=== PATIENT | male | born 1955 | race Two or more races ===

== ENCOUNTER 2017-07-06 19:32 | Inpatient (IN) | payer OTHER ==
[~2017-07-06] VITALS: Ht 172.7 cm; Wt 78.9 kg
--- NOTE | 2017-07-06 19:40 | NUR ---
PT TO BED 4 BIB RA, C/O SOB X 2 DAYS. PT PLACED IN GOWN AND ON VS/FOOT DRILL OPERATOR. RESP SHALLOW, TACHYPNEA, WITH A NONPRODUCTIVE COUGH. VSS/NAD NOTED. PT SAT 97% ON RA. SKIN WARM AND DRY. DENIES N/V/D.
--- NOTE | 2017-07-06 19:45 | NUR ---
18G IV TO LAC USING ASEPTIC TECH, BLOOD CULT X 2 AND BLOOD SAMPLE HANDED OVER TO LAB AT BEDSIDE.
[2017-07-06 19:50] LABS: BASOPHILS # (AUTO) 0.6 /CMM (0.0-0.2); BASOPHILS % (AUTO) 4.4 % (0.0-2.0); EOSINOPHILS % (AUTO) 0.3 % (0.0-6.0); HEMATOCRIT 50 % (39-51); HEMOGLOBIN 16.4 g/dL (13.5-17.5); LYMPHOCYTES # (AUTO) 2.9 /CMM (0.8-4.8); LYMPHOCYTES % (AUTO) 20.2 % (20.0-44.0); MEAN CORPUSCULAR HEMOGLOBIN 28 PG (26.0-33.0); MEAN CORPUSCULAR HGB CONC 33 g/dl (31.0-36.0); MEAN CORPUSCULAR VOLUME 85 fL (80-96); MONOCYTES # (AUTO) 0.9 /CMM (0.1-1.30); MONOCYTES % (AUTO) 6.3 % (2.0-12.0); NEUTROPHILS % (AUTO) 68.8 % (43.0-81.0); PLATELET COUNT (AUTO) 364 /CMM (150-450); RDW COEFFICIENT OF VARIATION 14.3 (11.5-15.0); RED BLOOD CELL COUNT(AUTO) 5.91 MIL/uL (4.5-6.0); WHITE BLOOD COUNT (AUTO) 14.4 K/uL (4.3-11.0)
[2017-07-06 20:00] LABS: CALCIUM, SERUM 9.4 mg/dL (8.5-10.1); CREATININE 1.3 mg/dL (0.6-1.3); POTASSIUM 3.8 mmol/L (3.5-5.1)
[2017-07-06] MEDS ORDERED: CEFTRIAXONE 1GM BAG (ER ONLY) 50 ML IV ONE ×2 (20:00→20:03)
[2017-07-06] MEDS ORDERED: IV NS 0.9% 1,000 ML BAG IV ONE (20:00)
[2017-07-06] MEDS ORDERED: LEVOFLOXACIN (500MG) 500 MG TABLET PO ONE (20:00)
[2017-07-06] MEDS ORDERED: LEVOFLOXACIN (500MG) 500 MG TABLET ONE (20:02)
--- NOTE | 2017-07-06 20:10 | NUR ---
MEDICATED ORDEREED PER .
--- NOTE | 2017-07-06 20:11 | NUR ---
LEVAQUIN TABLET 500MG ORDERED BY AND PULLED FROM [facility] BY RN. CHANGED ORDER TO IV LEVAQUIN. TABLET WASTED BY RN.
[2017-07-06] MEDS ORDERED: LEVOFLOXACIN 500 MG /D5W 100ML 100 ML IV ONE (20:52)
[2017-07-06] MEDS ORDERED: LEVOFLOXACIN 500 MG /D5W 100ML 500 MG/100 ML PIGGYBACK IV ONE (21:00)
--- NOTE | 2017-07-06 21:00 | NUR ---
MEDICATED PER MD ORDERS.
--- NOTE | 2017-07-06 21:12 | NUR ---
PT BEING ADMIT TO [facility] BED 110.
--- NOTE | 2017-07-06 21:23 | NUR ---
REPORT GIVEN TO JERSEY THURMAN.
--- NOTE | 2017-07-06 21:44 | NUR ---
PT TRANS TO BED 110 VIA STRETCHER, ACLS PROTOCOL WITH RNIglesia ROWLAND.
[2017-07-06] MEDS ORDERED: HYDROCODONE/APAP 5/325MG 1 EACH TABLET PO PRN (22:00)
[2017-07-06] MEDS: LEVOFLOXACIN 500 MG /D5W 100ML 500 MG in PREMIX 1 EA IV SCH (22:00)
[2017-07-06] MEDS: CEFTRIAXONE 1 G in IV D5W 50 ML IV SCH (22:00)
[2017-07-06] MEDS ORDERED: MAG HYDROX/AL HYDROX/SIMETH 30 ML UDC PO PRN (22:00)
[2017-07-06] MEDS ORDERED: ACETAMINOPHEN 325 MG TABLET PO PRN (22:00)
[2017-07-06] MEDS ORDERED: Z GUARD REMEDY 2 OZ OINT TP PRN (22:00)
[2017-07-06] MEDS ORDERED: ZOLPIDEM TARTRATE 5 MG TABLET PO PRN (22:00)
[2017-07-06] MEDS ORDERED: ONDANSETRON HCL/PF 4 MG/2 ML VIAL IVP PRN (22:00)
[2017-07-06] MEDS ORDERED: MAGNESIUM HYDROXIDE 30 ML UDC PO PRN (22:00)
[2017-07-06 22:30] VITALS: BP 125/94
--- NOTE | 2017-07-06 22:30 | NUR ---
RN NOTES, ADMITTED PATIENT FROM ER VIA [facility] AT 2150, ACCOMPANIED BY 2 ER STAFF, UNDER DR. REZA, PATIENT A/O X4 ABLE TO COMMUNICATE NEEDS, DIAGNOSED WITH SEPSIS, PNA, WITH H/O MS, PACEMAKER, BRAIN STIMULATOR IN PLACED, H/O LEFT EYE SX, NKA, WITH SOB NOTED, O2 ADMINISTERED VIA NC @ 2LPM, SATING @95% AT THIS TIME, TELEMONITOR PLACED, REVEALED ST HR 109. IV SITE ON LEFT AC GAUGE 18, INTACT AND PATENT, IVF NS INFUSING CONTINUE FROM ER, BODY ASSESSMENT DONE, EDEMA NOTED IN BOTH LOWER EXTREMITIES WITH POSITIVE PITTING EDEMA, SKIN INTACT, INSTRUCTED TO CALL LIGHT, CALL LIGHT PLACED W/I REACH, BED BATH GIVEN, ENCOURAGE TO USE URINAL, OFFLOADED EXTREMITIES WITH PILLOWS, KEPT DRY AND CLEAN, WILL CONTINUE TO MONITOR CLOSELY.
[2017-07-06 23:50] LABS: ALBUMIN 2.9 g/dL (3.4-5.0); BILIRUBIN,DIRECT 0.3 mg/dL (0.0-0.2); BILIRUBIN,TOTAL 1.1 mg/dL (0.2-1.0); TOTAL PROTEIN, SERUM 6.4 g/dL (6.4-8.2)
[2017-07-07] VITALS: BP 122/80
--- NOTE | 2017-07-07 03:00 | NUR ---
RN NOTES, REPORTED TO DR THAT NOTED PATIENT WITH NO URINARY OUTPUT, WITH ORDER TO INSERT VELIZ CATHETER.
[2017-07-07 04:45] VITALS: BP 144/100
--- NOTE | 2017-07-07 06:05 | NUR ---
RN CLOSING NOTES, PATIENT IN BED, AWAKE UNABLE TO SLEEP, ENCOURAGE TO GIVE SLEEPING PILL, BUT PATIENT REFUSED. NO ACUTE DISTRESS NOTED AT THIS TIME,, PATIENT STILL NOTED WITH SOB WHILE TALKING, WITH SATURATION LEVEL @99% ON IVF NS @ 125ML/HR, IV SITE INTACT AND PATENT WITH NOO S/S OF INFILTRATION OR ABNORMALITY NOTED AT THIS TIME. VELIZ CATHETER INSERTED ORDERED AND DRAINING YELLOW URINE, PATENCY INTACT, SPUTUM AND URINE COLLECTED, WILL ENDORSE CONTINUE OF CARE, AND MONITOR FOR URINE OUTPUT; AND F/U WITH MOM WITH HOME MEDICATIONS.
[2017-07-07 06:52] LABS: BASOPHILS % (AUTO) 0.5 % (0.0-2.0); EOSINOPHILS # (AUTO) 0.2 /CMM (0.0-0.7); EOSINOPHILS % (AUTO) 2.7 % (0.0-6.0); HEMATOCRIT 45 % (39-51); LYMPHOCYTES % (AUTO) 41.8 % (20.0-44.0); MEAN CORPUSCULAR HEMOGLOBIN 29 PG (26.0-33.0); MEAN CORPUSCULAR HGB CONC 34 g/dl (31.0-36.0); MEAN CORPUSCULAR VOLUME 87 fL (80-96); MONOCYTES # (AUTO) 0.7 /CMM (0.1-1.30); MONOCYTES % (AUTO) 9.4 % (2.0-12.0); NEUTROPHILS # (AUTO) 3.2 /CMM (1.8-8.9); NEUTROPHILS % (AUTO) 45.6 % (43.0-81.0); PLATELET COUNT (AUTO) 285 /CMM (150-450); RDW COEFFICIENT OF VARIATION 13.3 (11.5-15.0); WHITE BLOOD COUNT (AUTO) 7.1 K/uL (4.3-11.0)
--- NOTE | 2017-07-07 07:05 | NUR ---
RN NOTES, RECEIVED PT ON BED, RESPIRATION EVEN AND UNLABORED, ON 2L O2 N/C , GUANACO ANY DISTRESS AT THIS TIME ON TELE ST HR 107, IVF NS @ 125ML/HR RUNNING VIA L AC G 18 IV , SITE CDI, VELIZ CATHETER DRAINING TO GRAVITY WITH YELLOW URINE. SR UP x3 , CALL LIGHT WITHIN EASY REACH, BED LOCKED AND IN LOWEST POSITION , WILL CONTINUE TO MONITOR PT CLOSELY.
[2017-07-07 07:20] LABS: CALCIUM, SERUM 8.2 mg/dL (8.5-10.1); CREATININE 1.1 mg/dL (0.6-1.3); MAGNESIUM 1.8 mg/dL (1.8-2.4); PHOSPHORUS 3.2 mg/dL (2.5-4.9); POTASSIUM 4.5 mmol/L (3.5-5.1)
[2017-07-07 07:47] LABS: APPEARANCE,URINE TURBID (CLEAR); BILIRUBIN,URINE 1+ (NEGATIVE); BLOOD, URINE TRACE-INTA Ery/uL (NEGATIVE); COLOR,URINE YELLOW (YELLOW); KETONES,URINE 1+ (NEGATIVE); LEUKOCYTE ESTERASE ,URINE NEGATIVE (NEGATIVE); NITRITE, URINE NEGATIVE (NEGATIVE); PH,URINE 5.5 (5.0-8.0); PROTEIN,URINE 2+ mg/dl (NEGATIVE); UGLUCOSE NEGATIVE (NEGATIVE)
[2017-07-07 08:00] VITALS: BP_SYST 128; BP_DIAS 103; BP_DIAS 107
[2017-07-07 08:34] LABS: BACTERIA,URINE None seen /HPF (None Seen); RBC,URINE 0-2 /HPF (0-2); SQUAMOUS EPITHELIAL CELL,UR None Seen /HPF (None Seen); URINE AMORPHOUS PHOSPHATES Many /HPF (None Seen); WBC,URINE NONE SEEN /HPF (0-3)
[2017-07-07] MEDS ORDERED: IV NS 0.9% 1,000 ML BAG IV SCH (09:00)
[2017-07-07] MEDS ORDERED: IV NS 0.9% 1,000 ML BAG IV PRN (09:00)
--- NOTE | 2017-07-07 09:00 | NUR ---
RN NOTES PT SITTING ON THE EDGE OF THE BED, VOMITED x1, MODERATED AMOUNT OF JUST GASTRIC JUICE , NO SOILED PARTICLES NOTED. ZOFRAN IV GIVE PER MD ORDER .
[2017-07-07] MEDS ORDERED: ATOR20TA PO (09:30)
[2017-07-07 12:00] VITALS: BP 133/91
[2017-07-07] MEDS: IPRATROPIUM NEB FS 0.5 MG/2.5 ML AMPUL.NEB NEB SCH ×3 (13:19→20:02)
[2017-07-07] MEDS: ALBUTEROL FS 2.5 MG/0.5 ML VIAL.NEB NEB SCH ×3 (13:19→20:02)
[2017-07-07] MEDS: methylPREDNISolone SOD SUCC 40 MG/ML VIAL IV SCH ×2 (13:24→16:43)
[2017-07-07] MEDS: ENOXAPARIN SODIUM 40 MG/0.4 ML DISP.SYRIN SQ SCH (13:24)
--- NOTE | 2017-07-07 14:00 | NUR ---
RN NOTES IRENE MARINE EQUIPMENT TEST ENGINEER NOTIFIED REGARDING EMESIS x1 IN AM, CONTINUE TO MONITOR.
--- NOTE | 2017-07-07 14:00 | NUR ---
RN NOTES PT OUT OF BED TO BSC WITH PHYSICAL THERAPIST , GUERRERO x1
[2017-07-07] MEDS: IV NS 0.9% 1,000 ML IV PRN ×2 (14:44→21:59)
[2017-07-07 16:00] VITALS: BP 138/92
--- NOTE | 2017-07-07 18:49 | NUR ---
RN NOTES SUPPORTIVE FAMILY AT THE BEDSIDE, VSS STABLE , O2 SAT 99% , SR UP x3, CALL LIGHT WITHIN EASY REACH, WILL ENDORSE TO PRODUCT DEVELOPMENT COORDINATOR NURSE FOR ALFREDO .
--- NOTE | 2017-07-07 19:00 | NUR ---
RN NOTES, PATIENT AWAKE , ALERT AND ORIENTED, NO ACUTE DISTRESS NOTED AT THIS TIME, CLEAR LUNG SOUNDS UPON AUSCULTATION, STILL NOTED WITH SOB WHEN TALKING, FAMILY AT BEDSIDE. PITTING EDEMA IN BOTH LE NOTED, AFEBRILE AT THIS TIME, DISCUSS PLAN OF CARE WITH PATIENT AND FAMILY, CONTINUE IN IVF NS 0.9% AT 125ML/HR RUNNING WELL AND PT TOLERATED WELL, SITE INTACT AND PATENT NO S/S OF ANY ABNORMALITY OR INFILTRATION SITE, VELIZ CATHETER IN PLACE NOTED WITH MINIMAL AMOUNT OF YELLOW URINE, PATENCY INTACT, KEPT CLEAN AND DRY AT ALL TIMES, BED LOCKED AND IN LOWEST POSTILION, CALL LIGHT W/I REACH, WILL CONTINUE TO MONITOR CLOSELY.
[2017-07-07 20:00] VITALS: BP 143/92
[2017-07-07] MEDS: LEVOFLOXACIN 500 MG /D5W 100ML 500 MG in PREMIX 1 EA IV SCH (21:07)
[2017-07-07] MEDS: ATORVASTATIN 10 MG TABLET PO SCH (21:07)
[2017-07-07] MEDS: CEFTRIAXONE 1 G in IV D5W 50 ML IV SCH (22:51)
[2017-07-08] VITALS (7 sets, daily range): BP systolic 118–137; BP diastolic 72–96
--- NOTE | 2017-07-08 06:39 | NUR ---
RN CLOSING NOTES, PATIENT SLEEPING IN BED, BREATHING EVEN AND UNLABORED, NO SOB NOTED AT THIS TIME, ON IVF NS 0.9% RUNNING WELL AND PATIENT TOLERATED WELL, PATENT AND INTACT, NO S/S OF ANY INFILTRATION NOTED, VELIZ CATHETER IN PLACED , PATENCY INTACT, ALL NEEDS PROVIDED AND ATTENDED, CALL LIG HT W/I REACH AND BED LOCKED AN DIN LOWEST POSITION, WILL ENDORSED TO NEXT SHIFT PER PATIENT'S MOM OK TO GIVE INFORMATION ABOUT PATIENT'S CONDITION AND TO INFORM MD TO CALL BROTHER OR DAUGHTER IN LAW ABOUT THE PATIENT'S SITUATION AND PLAN OF CARE. KEPT PATIENT CLEAN AND DRY AT ALL TIMES.
[2017-07-08 06:58] LABS: BASOPHILS % (AUTO) 0.1 % (0.0-2.0); HEMATOCRIT 44 % (39-51); HEMOGLOBIN 14.4 g/dL (13.5-17.5); LYMPHOCYTES % (AUTO) 8.9 % (20.0-44.0); MEAN CORPUSCULAR HEMOGLOBIN 28 PG (26.0-33.0); MEAN CORPUSCULAR HGB CONC 33 g/dl (31.0-36.0); MEAN CORPUSCULAR VOLUME 86 fL (80-96); MONOCYTES # (AUTO) 0.8 /CMM (0.1-1.30); MONOCYTES % (AUTO) 7.3 % (2.0-12.0); NEUTROPHILS # (AUTO) 9.4 /CMM (1.8-8.9); NEUTROPHILS % (AUTO) 83.7 % (43.0-81.0); PLATELET COUNT (AUTO) 266 /CMM (150-450); RED BLOOD CELL COUNT(AUTO) 5.13 MIL/uL (4.5-6.0); WHITE BLOOD COUNT (AUTO) 11.3 K/uL (4.3-11.0)
[2017-07-08 07:06] LABS: CREATININE 1.1 mg/dL (0.6-1.3); MAGNESIUM 1.8 mg/dL (1.8-2.4); PHOSPHORUS 2.6 mg/dL (2.5-4.9); POTASSIUM 4.6 mmol/L (3.5-5.1)
--- NOTE | 2017-07-08 07:10 | NUR ---
RN NOTES RECEIVED PT ON BED, A/Ox3, RESPIRATION EVEN AND UNLABORED , ON O2 2L N/C , ON TELE ST HR IN LOW 100'S , PT GUANACO ANY DISTRESS ,IVF NS 0.9% AT 125ML/HR RUNNING VIA L AC IV SITE, VELIZ CATHETER DRAINING TO GRAVITY WITH YELLOW URINE, PATENCY INTACT, KEPT CLEAN AND DRY AT ALL TIMES, BED LOCKED AND IN LOWEST POSTILION, CALL LIGHT WITHIN REACH, WILL CONTINUE TO MONITOR CLOSELY.
[2017-07-08] MEDS: IPRATROPIUM NEB FS 0.5 MG/2.5 ML AMPUL.NEB NEB SCH ×4 (07:35→20:07)
[2017-07-08] MEDS: ALBUTEROL FS 2.5 MG/0.5 ML VIAL.NEB NEB SCH ×4 (07:35→20:07)
[2017-07-08] MEDS: methylPREDNISolone SOD SUCC 40 MG/ML VIAL IV SCH ×2 (08:40→12:38)
[2017-07-08] MEDS: IV NS 0.9% 1,000 ML IV PRN ×2 (08:40→17:25)
--- NOTE | 2017-07-08 12:00 | NUR ---
RN NOTES SUPPORTIVE FAMILY AT THE BEDSIDE, NS AT 75CC/HR RUNNING VIA L AC IV SITE, VELIZ DRAINING TO GRAVITY , SR UP x3, CALL LIGHT WITHIN EASY REACH, WILL ENDORSE TO CERTIFIED JUVENILE PROBATION OFFICER NURSE FOR ALFREDO . Addendum: 07/08/17 at 1841 by JODIE NUÑEZ RN TIME CORRECTION :ABOVE TIME IS 1840
[2017-07-08] MEDS: ENOXAPARIN SODIUM 40 MG/0.4 ML DISP.SYRIN SQ SCH (12:38)
--- NOTE | 2017-07-08 19:50 | NUR ---
VENTILATION WORKER INITIAL NOTE PT RECEIVED IN NO ACUTE DISTRESS. PT IS A/O X3. ON TELE WITH SR 87. LAC 18G RUNNING FLUIDS CLEAN DRY AND INTACT. F/C IS CLEAN DRY AND DRAINING DARK YELLOW URINE. COMFORT AND SAFETY MEASURES TO BE ENSURED DURING THE SHIFT. WILL CONTINUE TO MONITOR FOR ANY CHANGES.
[2017-07-08] MEDS: LEVOFLOXACIN 500 MG /D5W 100ML 500 MG in PREMIX 1 EA IV SCH (22:15)
[2017-07-08] MEDS: CEFTRIAXONE 1 G in IV D5W 50 ML IV SCH (22:15)
[2017-07-08] MEDS: ATORVASTATIN 10 MG TABLET PO SCH (22:15)
[2017-07-09] VITALS: BP 129/89
[2017-07-09 04:00] VITALS: BP 131/83
[2017-07-09 06:59] LABS: HEMATOCRIT 45 % (39-51); HEMOGLOBIN 14.7 g/dL (13.5-17.5); LYMPHOCYTES # (AUTO) 0.7 /CMM (0.8-4.8); LYMPHOCYTES % (AUTO) 4.3 % (20.0-44.0); MEAN CORPUSCULAR HEMOGLOBIN 28 PG (26.0-33.0); MEAN CORPUSCULAR HGB CONC 33 g/dl (31.0-36.0); MEAN CORPUSCULAR VOLUME 86 fL (80-96); MONOCYTES # (AUTO) 0.8 /CMM (0.1-1.30); MONOCYTES % (AUTO) 4.8 % (2.0-12.0); NEUTROPHILS # (AUTO) 15.3 /CMM (1.8-8.9); NEUTROPHILS % (AUTO) 90.9 % (43.0-81.0); PLATELET COUNT (AUTO) 237 /CMM (150-450); RDW COEFFICIENT OF VARIATION 15.3 (11.5-15.0); RED BLOOD CELL COUNT(AUTO) 5.21 MIL/uL (4.5-6.0); WHITE BLOOD COUNT (AUTO) 16.9 K/uL (4.3-11.0)
[2017-07-09 07:05] LABS: CALCIUM, SERUM 8.4 mg/dL (8.5-10.1); CREATININE 1.2 mg/dL (0.6-1.3); POTASSIUM 4.6 mmol/L (3.5-5.1)
[2017-07-09] MEDS: ALBUTEROL FS 2.5 MG/0.5 ML VIAL.NEB NEB SCH ×3 (07:35→15:30)
[2017-07-09] MEDS: IPRATROPIUM NEB FS 0.5 MG/2.5 ML AMPUL.NEB NEB SCH ×3 (07:35→15:30)
[2017-07-09 08:00] VITALS: BP 110/81
[2017-07-09] MEDS ORDERED: predniSONE 20 MG TABLET PO SCH (09:00)
[2017-07-09] MEDS: IV NS 0.9% 1,000 ML IV PRN (09:46)
[2017-07-09 12:00] VITALS: BP 131/92
[2017-07-09] MEDS ORDERED: LEVO500T90 PO (12:19)
[2017-07-09] MEDS ORDERED: PRED5TAB48 PO (12:19)
[2017-07-09] MEDS ORDERED: PRED20TA PO ×2 (12:19)
[2017-07-09] MEDS ORDERED: ALBU8.5H2 INH (12:19)
[2017-07-09] MEDS ORDERED: PRED10TA PO (12:19)
[2017-07-09] MEDS: ENOXAPARIN SODIUM 40 MG/0.4 ML DISP.SYRIN SQ SCH (12:49)
[2017-07-09 16:00] VITALS: BP 132/84
--- NOTE | 2017-07-09 16:21 | NUR ---
MEDICAL RESIDENT NOTES REMOVED VELIZ CATH MD ORDERED. NO COMPLICATIONS NOTED. CATH TIP INTACT. PATIENT STABLE AT THIS TIME
[2017-07-09 16:31] VITALS: BP 132/84
--- NOTE | 2017-07-09 18:00 | NUR ---
MS WASH OIL PUMP OPERATOR HELPER PATIENT LEFT IN STABLE CONDITION NO COMPLICAITONS NOTED. ALL DUE MEDS GIVEN AND ALL NEEDS MET. PATIENT AND MOTHER EDUCATED ON DC MATERIAL AND PATIENT UNABLE TO SIGN DUE TO MS; MOTHER SIGNED ON BEHALF. IV REMOVED AND PRESSURE AND DRESSING APPLIED NO BLEEDING NOTED. PATIENT AND MOTHER AWARE OF FOLLOW UP APPOINTMENT SCHEDULED. PATIENT CARE TRANSFERRED TO EMT. Addendum: 07/09/17 at 1911 by DEBI WANG RN PATIENT REFUSED DC PHOTOS
--- NOTE | 2017-07-09 18:05 | NUR ---
WHITEWATER RAFTING GUIDE CLOSING PATIENT MOTHER TOOK APPOINTMENT PAPER BEFORE A COPY WAS MADE FOR MEDICAL RECORDS
== END 2017-07-09 18:01 | disposition home health service (06) | DRG 871 ==
LOC: ER 19:35 → EDBD 21:04 → TELE-TD 21:04 → TELE1 22:59
PROVIDERS: ADMIT Family Medicine; ATTEND Family Medicine
DX: A41.9 Sepsis, unspecified organism (principal); J15.9 Unspecified bacterial pneumonia; E87.2 Acidosis; J44.0 Chronic obstructive pulmonary disease with (acute) lower respiratory infection; J44.1 Chronic obstructive pulmonary disease with (acute) exacerbation; G35 Multiple sclerosis; R73.9 Hyperglycemia, unspecified; E78.5 Hyperlipidemia, unspecified; J20.9 Acute bronchitis, unspecified; I10 Essential (primary) hypertension; Z99.3 Dependence on wheelchair; Z72.0 Tobacco use; F10.21 Alcohol dependence, in remission
CPT/HCPCS: 36415; 71010-TC; 80048-TC; 80061-TC; 80076-TC; 81000-TC; 83605-TC; 83735-TC; 84100-TC; 85025-TC; 87040-TC; 87070-TC; 87081-TC; 94799-TC; 97110-TC; 97112-TC; 97530-TC; A4216; J0696; J1650; J1956; J2405; J2920; J7030; J7040; J7060; Z7610

== ENCOUNTER 2017-08-11 16:15 | Inpatient (IN) | payer OTHER ==
[~2017-08-11] VITALS: Ht 167.6 cm; Wt 76.3 kg
[~2017-08-11 16:15] MED LIST: ALBU8.5H2 INH; ATOR20TA PO; LEVO500T90 PO; PRED10TA PO; PRED20TA PO; PRED5TAB48 PO
--- NOTE | 2017-08-11 16:18 | NUR ---
PT BIB RA C/O SOB, NOTED TO BE MILDLY LABORED BUT SATURATING 98-100% ON ROOM AIR. SKIN WARM NONDIAPHORETIC. DENIES PAIN. NOTED WITH JAMILA LOWER EXTREMITIY EDEMA +3 PITTING. NON-AMBULATORY AT BASELINE. IN ER BED 02 ON MONITR AND CONTINUOUS PULSE OX. MD AT BEDSIDE.
--- NOTE | 2017-08-11 16:34 | NUR ---
O2 SAT 97-100% ON ROOM AIR BUT PT REQUESTED TO HAVE O2 APPLIED FOR COMFORT. PLACED ON 2L VIA NC
[2017-08-11 16:36] LABS: BASOPHILS # (AUTO) 0.1 /CMM (0.0-0.2); EOSINOPHILS % (AUTO) 0.3 % (0.0-6.0); HEMATOCRIT 49 % (39-51); HEMOGLOBIN 15.8 g/dL (13.5-17.5); LYMPHOCYTES % (AUTO) 25.7 % (20.0-44.0); MEAN CORPUSCULAR HEMOGLOBIN 27 PG (26.0-33.0); MEAN CORPUSCULAR HGB CONC 32 g/dl (31.0-36.0); MEAN CORPUSCULAR VOLUME 85 fL (80-96); MONOCYTES # (AUTO) 0.6 /CMM (0.1-1.30); MONOCYTES % (AUTO) 4.9 % (2.0-12.0); NEUTROPHILS # (AUTO) 8.1 /CMM (1.8-8.9); NEUTROPHILS % (AUTO) 68.1 % (43.0-81.0); PLATELET COUNT (AUTO) 650 /CMM (150-450); RDW COEFFICIENT OF VARIATION 15.3 (11.5-15.0); RED BLOOD CELL COUNT(AUTO) 5.76 MIL/uL (4.5-6.0); WHITE BLOOD COUNT (AUTO) 11.8 K/uL (4.3-11.0)
[2017-08-11 16:44] LABS: CALCIUM, SERUM 9.6 mg/dL (8.5-10.1); CREATININE 1.3 mg/dL (0.6-1.3); POTASSIUM 3.9 mmol/L (3.5-5.1)
[2017-08-11 16:48] LABS: INR 1.25 (0.87-1.13)
[2017-08-11 17:01] LABS: ALBUMIN 3.3 g/dL (3.4-5.0); BILIRUBIN,DIRECT 0.9 mg/dL (0.0-0.2); BILIRUBIN,TOTAL 2.1 mg/dL (0.2-1.0); TOTAL PROTEIN, SERUM 8.1 g/dL (6.4-8.2)
[2017-08-11 17:04] LABS: TROPONIN I 0.058 ng/mL (0.00-0.056)
--- NOTE | 2017-08-11 17:15 | NUR ---
MD AT BEDSIDE. CALLED XRAY FOR F/U ON STATUS; PER TECH, THEY ARE COMING HERE NEXT.
[2017-08-11] MEDS ORDERED: ASPIRIN 325 MG TABLET PO ONE ×2 (17:30→18:00)
[2017-08-11] MEDS ORDERED: FUROSEMIDE 40 MG/4 ML VIAL IV ONE (17:30)
[2017-08-11] MEDS ORDERED: NITROGLYCERIN PACKET 1 GM PACKET TD ONE (17:30)
[2017-08-11] MEDS ORDERED: FUROSEMIDE 40 MG/4 ML VIAL ONE (17:34)
[2017-08-11] MEDS ORDERED: ASPIRIN 81 MG TAB.CHEW ONE (17:35)
[2017-08-11] MEDS ORDERED: NITROGLYCERIN PACKET 1 GM PACKET ONE (17:35)
--- NOTE | 2017-08-11 17:50 | NUR ---
PT STATES HIS BREATHING FEELS "BACK TO NORMAL" NOW. RESPIRATIONS STILL APPEAR MILDLY LABORED BUT SATURATING 100% ON 2L VIA NC
[2017-08-11] MEDS ORDERED: HYDROCODONE/APAP 5/325MG 1 EACH TABLET PO PRN (18:00)
[2017-08-11] MEDS ORDERED: ACETAMINOPHEN 325 MG TABLET PO PRN (18:00)
[2017-08-11] MEDS ORDERED: HYDROCODONE/APAP 10/325MG 1 EA TABLET PO PRN (18:00)
[2017-08-11] MEDS ORDERED: NITROGLYCERIN 0.4 MG/TAB BOTTLE SL ONE (18:00)
[2017-08-11] MEDS ORDERED: ONDANSETRON HCL/PF 4 MG/2 ML VIAL IVP PRN (18:00)
--- NOTE | 2017-08-11 18:28 | NUR ---
REPORT GIVEN TO ROSA PUTNAM FOR ADMISSION
[2017-08-11] MEDS ORDERED: hydrALAZINE HCL IV 20 MG VIAL IV PRN (18:30)
--- NOTE | 2017-08-11 18:44 | NUR ---
ODELL-CARE RENDERED AND LINENS CHANGED
--- NOTE | 2017-08-11 19:05 | NUR ---
REPORT REC'D FROM JERSEY JOLLY FOR ALFREDO. PT TO GO TO [facility] AFTER CHANGE OF SHIFT.
[2017-08-11 20:00] VITALS: BP 150/97
--- NOTE | 2017-08-11 20:00 | NUR ---
RN INITIAL NOTES RECEIVED PATIENT FROM ER, IN A GURNEY, TRANSPORTED VIA ACLS PROTOCOL. PATIENT'S FAMILY AT BEDSIDE. PATIENT IS OBSERVED TO BE ALERT AND ORIENTED, ABLE TO MAKE NEEDS KNOWN, DENIES ANY PAIN AND DISCOMFORT UPON ARRIVAL. PATIENT HOWEVER IS OBSERVED WITH LABORED BREATHING, SHORTNESS OF BREATH, TACHYPNEIC AND ST ON TELE WITH HR OF 111. PATIENT WITH DIMINISHED BREATH SOUNDS WITH MINIMAL CRACKLES NOTED ON BILATERAL LUNG VARNER, UPON AUSCULTATION. PATIENT CONNECTED TO O2 VIA NC AND PLACED AT 3LPM, HOB ELEVATED. NOTED WITH SOB WITH EXERTION, ALLOWED REST PERIODS WITH ASSESSMENT. PATIENT VERBALIZES SOB WHEN LAYING FLAT. PATIENT'S NEEDS ANTICIPATED AND MET. SAFETY AND COMFORT ENSURED. ORIENTED TO UNIT PROTOCOLS. PATIENT NOTED WITH PACEMAKER-LIKE DEVICE ON HIS LEFT UPPER CHEST WALL, WHICH IS ACCORDING TO THE PATIENT, IS BRAIN STIMULATOR FOR CONTROL OF TREMORS SECONDARY TO MULTIPLE SCLEROSIS. PATIENT'S BODY ASSESSMENT DONE, NOTED WITH SACRAL REDNESS, AND MULTIPLE SKIN ABRASIONS ON LOWER EXTREMITIES. PATIENT KEPT CLEAN AND DRY. SAFETY AND COMFORT ENSURED. BED IN LOW AND LOCKED POSITION. CALL LIGHT IN REACH. WILL CONTINUE TO MONITOR.
--- NOTE | 2017-08-11 20:30 | NUR ---
RN NOTES CLARIFIED ADMISSION ORDERS WITH ALESHA ROSA NP WITH REGARDS TO THE ORDERED ASA AND NITROBID. ORDERS CLARIFIED, NOTED AND CARRIED OUT. MEDICATION DUE 1800, NON ADMINISTERED CLARIFIED WITH MINE CAR MECHANIC.
[2017-08-11] MEDS ORDERED: Z GUARD REMEDY 2 OZ OINT TP PRN (21:00)
[2017-08-11] MEDS ORDERED: NITROGLYCERIN 0.4 MG/TAB BOTTLE SL PRN (21:00)
[2017-08-11] MEDS: ZOLPIDEM TARTRATE 5 MG TABLET PO PRN (21:45)
[2017-08-11] MEDS: ENOXAPARIN SODIUM 40 MG/0.4 ML DISP.SYRIN SQ SCH (21:45)
[2017-08-12] VITALS: BP 124/88
--- NOTE | 2017-08-12 01:00 | NUR ---
RN NOTES PATIENT COMPLAINED OF BEING UNABLE TO SLEEP FOR ALMOST A WEEK NOW D/T PATIENT'S SHORTNESS OF BREATH. PATIENT REQUESTED FOR SLEEPING MEDICATION, GIVEN ORDERED PRN. PATIENT AT THIS TIME IS SLEEPING COMFORTABLY. SR AT 90s. PATIENT WITH NO ACUTE SIGNS OF RESPIRATORY DISTRESS, NO OBSERVED SOB. HOB ELEVATED TOLERATED. WILL MONITOR.
[2017-08-12 04:00] VITALS: BP 135/76
--- NOTE | 2017-08-12 06:20 | NUR ---
RN CLOSING NOTES PATIENT WITH NO ACUTE CHANGE IN CONDITION OBSERVED OVERNIGHT. PATIENT ABLE TO SLEEP COMFORTABLY THROUGH THE NIGHT. NO ACUTE DISTRESS AND DISCOMFORT. ON 2LPM OF O2 VIA NC. PATIENT IS ST ON TELE WITH BBB, 103. ALL DUE MEDS GIVEN ORDERED. AM LABS DRAWN. PATIENT'S NEEDS ANTICIPATED AND MET. TURNED AND REPOSITIONED. KEPT CLEAN AND DRY. SAFETY AND COMFORT ENSURED. BED IN LOW AND LOCKED POSITION. CALL LIGHT IN REACH. WILL ENDORSE ACCORDINGLY FOR CONTINUITY OF CARE.
[2017-08-12 06:32] LABS: BASOPHILS # (AUTO) 0.1 /CMM (0.0-0.2); BASOPHILS % (AUTO) 0.6 % (0.0-2.0); EOSINOPHILS # (AUTO) 0.1 /CMM (0.0-0.7); EOSINOPHILS % (AUTO) 0.6 % (0.0-6.0); HEMATOCRIT 45 % (39-51); HEMOGLOBIN 14.3 g/dL (13.5-17.5); LYMPHOCYTES # (AUTO) 3.9 /CMM (0.8-4.8); LYMPHOCYTES % (AUTO) 32.5 % (20.0-44.0); MEAN CORPUSCULAR HEMOGLOBIN 27 PG (26.0-33.0); MEAN CORPUSCULAR HGB CONC 32 g/dl (31.0-36.0); MEAN CORPUSCULAR VOLUME 85 fL (80-96); MONOCYTES % (AUTO) 8.5 % (2.0-12.0); NEUTROPHILS # (AUTO) 6.9 /CMM (1.8-8.9); NEUTROPHILS % (AUTO) 57.8 % (43.0-81.0); PLATELET COUNT (AUTO) 390 /CMM (150-450); RDW COEFFICIENT OF VARIATION 16.7 (11.5-15.0); RED BLOOD CELL COUNT(AUTO) 5.32 MIL/uL (4.5-6.0)
[2017-08-12 06:50] LABS: CALCIUM, SERUM 8.7 mg/dL (8.5-10.1); CREATININE 1.1 mg/dL (0.6-1.3); MAGNESIUM 1.8 mg/dL (1.8-2.4); PHOSPHORUS 3.6 mg/dL (2.5-4.9); POTASSIUM 3.8 mmol/L (3.5-5.1)
--- NOTE | 2017-08-12 07:49 | NUR ---
[facility]/RN - Notes Received pt awake, Aox4. No acute distress. Respirations are even and unlabored. On O3 @ 2lpm via nasal cannula. on tele reading SR with BBB 99. IV saline locked, patent and intact. Safety and comfort measures in place. Will continue to monitor pt closely.
[2017-08-12 08:00] VITALS: BP 127/92
[2017-08-12] MEDS: ASPIRIN 325 MG TABLET PO SCH (08:37)
[2017-08-12] MEDS ORDERED: FUROSEMIDE 40 MG TABLET PO SCH (09:00)
[2017-08-12] MEDS ORDERED: AMLODIPINE BESYLATE 5 MG TABLET PO SCH (09:00)
--- NOTE | 2017-08-12 09:02 | NUR ---
WOUND CARE CONSULT: PT PRESENTS WITH INCONTINENCE AND DIFFICULT MOBILITY. 4+ PITTING EDEMA NOTED TO FEET AND ANKLE AREAS. ALL SKIN PROTECTION MEASURES IN PLACE AND DISCUSSED WITH NURSING STAFF. SKIN TO BE KEPT CLEAN AND DRY. WILL SEE PRN. KRAUSE IN AGREEMENT WITH PLAN OF CARE. CURRENT DESHAWN SCORE IS 13. Addendum: 08/12/17 at 0904 by CHRISTELLE DAO WNDNU Amended: Links added.
[2017-08-12] MEDS: ATORVASTATIN 10 MG TABLET PO SCH (10:30)
[2017-08-12] MEDS: CARVEDILOL 6.25 MG TABLET PO SCH ×2 (10:30→21:29)
[2017-08-12] MEDS: POTASSIUM CHLORIDE 20 MEQ TAB.PRT.SR PO SCH ×3 (10:30→13:08)
[2017-08-12] MEDS: FUROSEMIDE 40 MG/4 ML VIAL IV SCH ×3 (10:30→18:26)
[2017-08-12] MEDS: LOSARTAN POTASSIUM 50 MG TABLET PO SCH (10:30)
[2017-08-12 12:00] VITALS: BP 127/89
--- NOTE | 2017-08-12 15:35 | NUR ---
Spoke with pt brother Sarah - stated patient lives with elderly mother in the 2nd floor apartment. Patient has multiple sclerosis x30yrs, he is non-ambulatory and requires max to total assist with adl's. Per family, patient has been falling at home and mother is the primary caregiver who is also in the hospital. Patient is not safe for dc home, family is requesting SNF placement,family prefer [facility]. Clinicals and SNF request faxed to [facility] for review and authorization. SNF referral faxed to [facility] [phone] . Addendum: 08/12/17 at 1536 by JOSH MCKINLEY RN Amended: Links added.
--- NOTE | 2017-08-12 15:40 | NUR ---
Spoke with pt brother Sarah - [place] patient lives with elderly mother in the 2nd floor apartment. Patient has multiple sclerosis x30yrs, he is non-ambulatory and requires max to total assist with adl's. He is confined to bed/chair most of the time. Per family, patient has been falling at home and mother is the primary caregiver who is also in the hospital. Patient is not safe for dc home, family is requesting SNF placement,family prefer [facility]. Clinicals and SNF request faxed to [facility] for review and authorization. SNF referral faxed to [facility] [phone].Patient pcp is Dr. Max Waller [phone]. Addendum: 08/12/17 at 1540 by JOSH MCKINLEY RN Amended: Links added.
[2017-08-12 16:00] VITALS: BP 95/67
--- NOTE | 2017-08-12 18:46 | NUR ---
Tele/RN - Notes No significant change in pt's condition. No acute distress. Will endorse to night nurse for continuity of care.
--- NOTE | 2017-08-12 19:30 | NUR ---
RN INITIAL NOTES RECEIVED PATIENT IN BED, SLEEPING COMFORTABLY, NO DISTRESS WITH RESPIRATION OBSERVED TO BE UNLABORED, EVEN. ON 2LPM OF O2 VIA NC, RESPIRATION IS EVEN AND UNLABORED. SR ON TELE WITH BBB, HR OF 78. PATIENT WITH NO ACUTE DISTRESS AND DISCOMFORT. DENIES ANY PAIN. BED IN LOW AND LOCKED POSITION. CALL LIGHT IN REACH. WILL MONITOR.
[2017-08-12 20:00] VITALS: BP 100/66
[2017-08-12] MEDS: ZOLPIDEM TARTRATE 5 MG TABLET PO PRN (21:29)
[2017-08-12] MEDS: ENOXAPARIN SODIUM 40 MG/0.4 ML DISP.SYRIN SQ SCH (21:30)
[2017-08-13] VITALS: BP 98/67
[2017-08-13 04:00] VITALS: BP 102/53
--- NOTE | 2017-08-13 06:46 | NUR ---
RN CLOSING NOTES PATIENT WITH NO ACUTE DISTRESS OBSERVED OVERNIGHT. PATIENT SLEPT COMFORTABLY, NO SOB NOTED. ON 2LPM OF O2 VIA NC. PATIENT WAS DIURESED IN AM, STILL NOTED WITH GOOD URINARY OUTPUT THROUGH THE SHIFT. PATIENT KEPT CLEAN AND DRY, GOOD PERICARE NOTED. SKIN BARRIER APPLIED FOR SKIN MANAGEMENT. PATIENT'S NEEDS ANTICIPATED AND MET. SAFETY AND COMFORT ENSURED. BED IN LOW AND LOCKED POSITION. CALL LIGHT IN REACH. WILL MONITOR. PATIENT REFUSED AM DRAW AT THIS TIME, WILL ENDORSE IN AM. ALL DUE MEDS GIVEN. PATIENT REMAINS SR ON TELE WITH BBB, 73 HR.
--- NOTE | 2017-08-13 07:00 | NUR ---
RN INITIAL NOTES RECEIVED PATIENT IN BED, AWAKE A/O X4,IV ACESS AT RIGHT ARM G20 SL , NO DISTRESS WITH RESPIRATION OBSERVED. ON 2LPM OF O2 VIA NC, RESPIRATION IS EVEN AND UNLABORED. SR ON TELE WITH BBB, HR OF 78. PATIENT WITH NO ACUTE DISTRESS AND DISCOMFORT. DENIES ANY PAIN. BED IN LOW AND LOCKED POSITION. CALL LIGHT IN REACH. VSS TAKEN . WILL CONTINUE TO MONITOR
[2017-08-13 08:00] VITALS: BP 100/66
[2017-08-13] MEDS: ASPIRIN 325 MG TABLET PO SCH (08:19)
[2017-08-13] MEDS: ATORVASTATIN 10 MG TABLET PO SCH (08:20)
[2017-08-13] MEDS: CARVEDILOL 6.25 MG TABLET PO SCH ×2 (08:20→20:17)
[2017-08-13] MEDS: LOSARTAN POTASSIUM 50 MG TABLET PO SCH (08:21)
[2017-08-13 12:02] LABS: BASOPHILS % (AUTO) 0.4 % (0.0-2.0); EOSINOPHILS % (AUTO) 0.4 % (0.0-6.0); HEMATOCRIT 44 % (39-51); HEMOGLOBIN 14.1 g/dL (13.5-17.5); LYMPHOCYTES # (AUTO) 1.8 /CMM (0.8-4.8); LYMPHOCYTES % (AUTO) 16.8 % (20.0-44.0); MEAN CORPUSCULAR HEMOGLOBIN 27 PG (26.0-33.0); MEAN CORPUSCULAR HGB CONC 32 g/dl (31.0-36.0); MEAN CORPUSCULAR VOLUME 84 fL (80-96); MONOCYTES # (AUTO) 0.8 /CMM (0.1-1.30); MONOCYTES % (AUTO) 7.7 % (2.0-12.0); NEUTROPHILS # (AUTO) 7.8 /CMM (1.8-8.9); NEUTROPHILS % (AUTO) 74.7 % (43.0-81.0); PLATELET COUNT (AUTO) 325 /CMM (150-450); RDW COEFFICIENT OF VARIATION 16.1 (11.5-15.0); RED BLOOD CELL COUNT(AUTO) 5.25 MIL/uL (4.5-6.0); WHITE BLOOD COUNT (AUTO) 10.5 K/uL (4.3-11.0)
[2017-08-13 12:09] LABS: TROPONIN I 0.087 ng/mL (0.00-0.056)
[2017-08-13 12:21] LABS: ALBUMIN 2.2 g/dL (3.4-5.0); BILIRUBIN,TOTAL 0.9 mg/dL (0.2-1.0); CALCIUM, SERUM 8.6 mg/dL (8.5-10.1); CREATININE 1.1 mg/dL (0.6-1.3); MAGNESIUM 1.7 mg/dL (1.8-2.4); POTASSIUM 3.4 mmol/L (3.5-5.1); TOTAL PROTEIN, SERUM 5.7 g/dL (6.4-8.2)
[2017-08-13 16:00] VITALS: BP 112/80
--- NOTE | 2017-08-13 18:33 | NUR ---
RN CLOSING NOTES PATIENT NO SHORTNESS OF BREATH OR DISCOMFORT DURING THE SHIFT.VITAL SIGNS ARE STABLE . ON 2LPM OF O2 VIA NC. PATIENT KEPT CLEAN AND DRY, GOOD PERICARE NOTED. SKIN BARRIER APPLIED FOR SKIN MANAGEMENT. PATIENT'S NEEDS ANTICIPATED AND MET. SAFETY AND COMFORT ENSURED. . BED IN LOW AND LOCKED POSITION. CALL LIGHT IN REACH. WILL MONITOR.. ALL DUE MEDS GIVEN.WILL ENDORSE TO THE PM NURSE
[2017-08-13 20:00] VITALS: BP 112/78
[2017-08-13] MEDS: ZOLPIDEM TARTRATE 5 MG TABLET PO PRN (20:16)
[2017-08-13] MEDS: ENOXAPARIN SODIUM 40 MG/0.4 ML DISP.SYRIN SQ SCH (20:18)
[2017-08-14 04:00] VITALS: BP 110/67
[2017-08-14 06:08] LABS: *SPE ALPHA-1-GLOBULIN 0.2 g/dL (0.0-0.4); *SPE ALPHA-2-GLOBULIN 0.8 g/dL (0.4-1.0); *SPE BETA GLOBULIN 0.8 g/dL (0.7-1.3); *SPE GLOBULIN, TOTAL 2.9 g/dL (2.2-3.9); *SPE M-SPIKE Not Observed g/dL (Not Observed); *SPEGAMMA GLOBULIN 1.1 g/dL (0.4-1.8)
--- NOTE | 2017-08-14 07:00 | NUR ---
RN OPENING NOTE RECV'D REPORT FROM NOC RN. PT AAO2. CTAB. 2LNC. DENIES PAIN. R AC 20G SL. REFUSED LAB DRAW THIS AM. BED IN LOW LOCKED POSITION. SIDE RAILS UP X 2. CALL LIGHT IN REACH. WILL CONT TO MONITOR CLOSELY.
[2017-08-14 08:00] VITALS: BP 114/78
[2017-08-14] MEDS: ASPIRIN 325 MG TABLET PO SCH (09:10)
[2017-08-14] MEDS: ATORVASTATIN 10 MG TABLET PO SCH (09:10)
[2017-08-14] MEDS: CARVEDILOL 6.25 MG TABLET PO SCH (09:11)
[2017-08-14] MEDS: LOSARTAN POTASSIUM 50 MG TABLET PO SCH (09:11)
[2017-08-14] MEDS ORDERED: Magnesium 1GM/D5W 100ML PREMIX 100 ML IV SCH (09:24)
[2017-08-14] MEDS ORDERED: POTASSIUM CHLORIDE 20 MEQ TAB.PRT.SR PO SCH (09:30)
[2017-08-14] MEDS ORDERED: FUROSEMIDE 40 MG TABLET PO SCH (09:30)
[2017-08-14 10:26] LABS: BASOPHILS % (AUTO) 0.3 % (0.0-2.0); EOSINOPHILS % (AUTO) 0.4 % (0.0-6.0); HEMATOCRIT 46 % (39-51); HEMOGLOBIN 14.3 g/dL (13.5-17.5); LYMPHOCYTES # (AUTO) 1.6 /CMM (0.8-4.8); LYMPHOCYTES % (AUTO) 13.2 % (20.0-44.0); MEAN CORPUSCULAR HEMOGLOBIN 27 PG (26.0-33.0); MEAN CORPUSCULAR HGB CONC 32 g/dl (31.0-36.0); MEAN CORPUSCULAR VOLUME 85 fL (80-96); MONOCYTES # (AUTO) 0.9 /CMM (0.1-1.30); MONOCYTES % (AUTO) 7.4 % (2.0-12.0); NEUTROPHILS # (AUTO) 9.8 /CMM (1.8-8.9); NEUTROPHILS % (AUTO) 78.7 % (43.0-81.0); PLATELET COUNT (AUTO) 383 /CMM (150-450); RDW COEFFICIENT OF VARIATION 16.2 (11.5-15.0); RED BLOOD CELL COUNT(AUTO) 5.36 MIL/uL (4.5-6.0); WHITE BLOOD COUNT (AUTO) 12.4 K/uL (4.3-11.0)
[2017-08-14 10:34] LABS: ALBUMIN 2.5 g/dL (3.4-5.0); BILIRUBIN,TOTAL 0.9 mg/dL (0.2-1.0); CALCIUM, SERUM 8.9 mg/dL (8.5-10.1); CREATININE 1.1 mg/dL (0.6-1.3); MAGNESIUM 1.9 mg/dL (1.8-2.4); PHOSPHORUS 3.5 mg/dL (2.5-4.9); POTASSIUM 3.9 mmol/L (3.5-5.1); TOTAL PROTEIN, SERUM 6.4 g/dL (6.4-8.2)
[2017-08-14 10:41] LABS: TROPONIN I 0.139 ng/mL (0.00-0.056)
[2017-08-14 16:00] VITALS: BP 99/70
--- NOTE | 2017-08-14 19:07 | NUR ---
RN CLOSING NOTES PLAN TO TRANSPORT TO [facility]ISON. ENDORSED REPORT TO NOC RN. RAC 20G SL. 2LNC. NO DISTRESS. STABLE. CALL LIGHT IN REACH. BED IN LOW LOCKED POSITION.
--- NOTE | 2017-08-14 19:10 | NUR ---
RN/MS NOTES: REPORT GIVEN TO [facility] [phone] TO NURSE EUGENE PUTNAM. PT. WILL BE GOING TO [facility] # [id number]. AMBULANCE TRANSPORT CAME TO BACK END ENGINEER PT. IV D/C. PT. LEFT IN STABLE CONDITION.
== END 2017-08-14 19:30 | DRG 190 ==
LOC: ER 16:17 → TELE-TD 18:40 → TELE1 08-12 11:28 → MEDSG1 08-13 08:17
PROVIDERS: ADMIT Nurse Practitioner Acute Care; ATTEND Nurse Practitioner Acute Care
DX: I21.4 Non-ST elevation (NSTEMI) myocardial infarction (principal); I50.23 Acute on chronic systolic (congestive) heart failure; J90 Pleural effusion, not elsewhere classified; I42.9 Cardiomyopathy, unspecified; I11.0 Hypertensive heart disease with heart failure; Z79.899 Other long term (current) drug therapy; Z95.0 Presence of cardiac pacemaker; D72.829 Elevated white blood cell count, unspecified; G35 Multiple sclerosis; Z98.890 Other specified postprocedural states; E78.5 Hyperlipidemia, unspecified; F17.200 Nicotine dependence, unspecified, uncomplicated; J44.9 Chronic obstructive pulmonary disease, unspecified
CPT/HCPCS: 36415; 71010-TC; 80048-TC; 80053-TC; 80061-TC; 80076-TC; 82306; 83735-TC; 83880; 84100-TC; 84155; 84165; 84439-TC; 84443-TC; 84484-TC; 85025-TC; 85730-TC; 87081-TC; 93307-TC; A4349; A4606; J1650; J1940; J3475; Z7610

== ENCOUNTER 2017-09-08 18:36 | Inpatient (IN) | payer OTHER ==
[~2017-09-08] VITALS: Ht 175.3 cm; Wt 77.1 kg
[2017-09-08 18:56] LABS: BASOPHILS # (AUTO) 0.1 /CMM (0.0-0.2); BASOPHILS % (AUTO) 0.5 % (0.0-2.0); EOSINOPHILS % (AUTO) 0.2 % (0.0-6.0); HEMATOCRIT 40 % (39-51); HEMOGLOBIN 13.3 g/dL (13.5-17.5); LYMPHOCYTES # (AUTO) 1.7 /CMM (0.8-4.8); LYMPHOCYTES % (AUTO) 14.2 % (20.0-44.0); MEAN CORPUSCULAR HEMOGLOBIN 27 PG (26.0-33.0); MEAN CORPUSCULAR HGB CONC 33 g/dl (31.0-36.0); MEAN CORPUSCULAR VOLUME 81 fL (80-96); MONOCYTES # (AUTO) 0.7 /CMM (0.1-1.30); NEUTROPHILS # (AUTO) 9.7 /CMM (1.8-8.9); NEUTROPHILS % (AUTO) 79.1 % (43.0-81.0); PLATELET COUNT (AUTO) 259 /CMM (150-450); RDW COEFFICIENT OF VARIATION 15.1 (11.5-15.0); RED BLOOD CELL COUNT(AUTO) 4.97 MIL/uL (4.5-6.0); WHITE BLOOD COUNT (AUTO) 12.2 K/uL (4.3-11.0)
[2017-09-08] MEDS ORDERED: FURO-144 PO (18:59)
[2017-09-08] MEDS ORDERED: ACET-868 PO (18:59)
[2017-09-08] MEDS ORDERED: POTA20TA83 PO (18:59)
[2017-09-08] MEDS ORDERED: HYDR-552 PO (18:59)
[2017-09-08] MEDS ORDERED: ASPI-992 PO (18:59)
[2017-09-08] MEDS ORDERED: CARV6.25 PO (18:59)
--- NOTE | 2017-09-08 18:59 | NUR ---
USHA FROM [facility] DT RESPIRATIORY DISTRESS. PATIENT RECEIVED ON CPAP SATING 100%. PATIENT IS VERBALLY RESPONSIVE, HOWEVER CONFUSED/ LETHARGIC. SKIN IS WARM TO TOUCH AND NON DIAPHORETIC. PATIENT IS AFEBRILE. MD FRANCOIS AT BEDSIDE, RT AT BEDSIDE
[2017-09-08] MEDS ORDERED: IV NS 0.9% 500 ML BAG IV ONE ×2 (19:00→21:00)
--- NOTE | 2017-09-08 19:00 | NUR ---
PATIENT WAS PLACED ON O2 VIA NC @2LPM, SATING 97%. RT AT BEDSIDE./
--- NOTE | 2017-09-08 19:00 | NUR ---
RECEIVED REPORT FROM ANGELO
--- NOTE | 2017-09-08 19:02 | NUR ---
EKG DONE AT BEDSIDE
--- NOTE | 2017-09-08 19:04 | NUR ---
ER AT BEDSIDE FOR EVAL
[2017-09-08 19:06] LABS: CALCIUM, SERUM 9.2 mg/dL (8.5-10.1); CARBON DIOXIDE 21 mmol/L (21-32); CHLORIDE 99 mmol/L (98-107); CREATININE 1.6 mg/dL (0.6-1.3); GLUCOSE 166 mg/dL (74-106); POTASSIUM 4.6 mmol/L (3.5-5.1); SODIUM SERUM 132 mmol/L (136-145); UREA NITROGEN, BLOOD 22 mg/dL (7-18)
[2017-09-08 19:11] LABS: INR 1.06 (0.87-1.13)
[2017-09-08 19:14] LABS: TROPONIN I 0.063 ng/mL (0.00-0.056)
[2017-09-08 19:19] LABS: B-TYPE NATRIURETIC PEPTIDE 20475 PG/ML (0-125)
[2017-09-08] MEDS ORDERED: MORPHINE SULFATE INJ 4 MG/ML DISP.SYRIN ONE (19:22)
[2017-09-08] MEDS ORDERED: MORPHINE SULFATE INJ 2 MG/ML DISP.SYRIN IV ONE (19:30)
[2017-09-08] MEDS ORDERED: ACETAMINOPHEN ES 500 MG TABLET ONE (19:46)
[2017-09-08] MEDS ORDERED: CEFEPIME 1 GM VIAL ONE (19:46)
[2017-09-08] MEDS ORDERED: VANCOMYCIN 1 GM VIAL ONE (19:46)
[2017-09-08] MEDS ORDERED: ACETAMINOPHEN ES 500 MG TABLET PO ONE (20:00)
[2017-09-08] MEDS ORDERED: CEFEPIME 1 GM in IV D5W 50 ML IV ONE (20:00)
[2017-09-08] MEDS ORDERED: VANCOMYCIN 1 GM in IV D5W 250 ML IV ONE (20:00)
[2017-09-08] MEDS ORDERED: ASPIRIN 81 MG TAB.CHEW ONE (21:06)
[2017-09-08] MEDS ORDERED: ASPIRIN 81 MG TAB.CHEW PO ONE (21:30)
[2017-09-08 21:50] LABS: BILIRUBIN,DIRECT 0.2 mg/dL (0.0-0.2); BILIRUBIN,TOTAL 0.7 mg/dL (0.2-1.0)
[2017-09-08 22:00] VITALS: BP 91/59
--- NOTE | 2017-09-08 22:00 | NUR ---
TELE/RN NOTES PATIENT IS ALERT, ORIENTED X3, ABLE TO VERBALIZE NEEDS, RECEIVED REPORT FROM WOOD MILL SUPERVISOR. SKIN WARM TO TOUCH, REQUIRE OXYGEN VIA NC ON 2L, WHEN PATIENT RECEIVED FROM ER, PATIENT ABLE TO VERBALIZE NEEDS AND ALERT. ON TELE READING SR WITH PV'S. REQUIRE REPOSITIONING PATIENT UNABLE TO MOVE BLE, SKIN TEAR IN LOWER BACK/SACRUM , IV ON LEFT AC AT 18 GAUGE, WBC ELEVATE AND TROPONIN AT 0.63, BNP ELEVATED, CHEST XRAY WITH PULMONARY VASCULAR CONGESTION. AWAITING FOR MD FOR MED ORDERS AND DIET ORDER, AWAITING FOR RETURN CALL.
--- NOTE | 2017-09-08 22:07 | NUR ---
REPORT GIVEN TO ALLEGRA ON 3WEST
[2017-09-09] VITALS: BP 91/59
[2017-09-09] MEDS ORDERED: MAGNESIUM HYDROXIDE 30 ML UDC PO PRN (02:30)
[2017-09-09] MEDS ORDERED: DEXTROSE 50%-WATER 50 ML DISP.SYRIN IV PRN (02:30)
[2017-09-09] MEDS ORDERED: ZOLPIDEM TARTRATE 5 MG TABLET PO PRN (02:30)
[2017-09-09] MEDS ORDERED: ONDANSETRON HCL/PF 4 MG/2 ML VIAL IVP PRN (02:30)
[2017-09-09] MEDS ORDERED: ACETAMINOPHEN 325 MG TABLET PO PRN (02:30)
[2017-09-09] MEDS ORDERED: Z GUARD REMEDY 2 OZ OINT TP PRN (02:30)
[2017-09-09] MEDS ORDERED: HYDROCODONE/APAP 5/325MG 1 EACH TABLET PO PRN (02:30)
[2017-09-09 04:00] VITALS: BP 100/69
[2017-09-09] MEDS ORDERED: LEVOFLOXACIN 750 MG /D5W 150ML 750 MG in PREMIX 1 EA IV SCH (04:00)
[2017-09-09] MEDS ORDERED: methylPREDNISolone SOD SUCC 40 MG/ML VIAL ONE (04:52)
[2017-09-09] MEDS ORDERED: LEVOFLOXACIN 750 MG /D5W 150ML 150 ML IV ONE (04:53)
[2017-09-09] MEDS: methylPREDNISolone SOD SUCC 40 MG/ML VIAL IV SCH ×4 (05:12→16:26)
[2017-09-09] MEDS: BLOOD SUGAR DIAGNOSTIC 1 EACH STRIP IN SCH ×4 (06:22→22:46)
[2017-09-09 07:06] LABS: BASOPHILS % (AUTO) 0.1 % (0.0-2.0); EOSINOPHILS % (AUTO) 0.1 % (0.0-6.0); HEMATOCRIT 37 % (39-51); HEMOGLOBIN 12.1 g/dL (13.5-17.5); LYMPHOCYTES # (AUTO) 1.7 /CMM (0.8-4.8); LYMPHOCYTES % (AUTO) 16.9 % (20.0-44.0); MEAN CORPUSCULAR HEMOGLOBIN 27 PG (26.0-33.0); MEAN CORPUSCULAR HGB CONC 33 g/dl (31.0-36.0); MEAN CORPUSCULAR VOLUME 82 fL (80-96); MONOCYTES # (AUTO) 0.8 /CMM (0.1-1.30); MONOCYTES % (AUTO) 7.8 % (2.0-12.0); NEUTROPHILS # (AUTO) 7.3 /CMM (1.8-8.9); NEUTROPHILS % (AUTO) 75.1 % (43.0-81.0); PLATELET COUNT (AUTO) 231 /CMM (150-450); RDW COEFFICIENT OF VARIATION 14.8 (11.5-15.0); RED BLOOD CELL COUNT(AUTO) 4.53 MIL/uL (4.5-6.0); WHITE BLOOD COUNT (AUTO) 9.8 K/uL (4.3-11.0)
[2017-09-09] MEDS: INSULIN REGULAR, HUMAN 100 UNIT/ML 3 ML VIAL SQ PRN ×4 (07:28→23:11)
[2017-09-09 07:30] LABS: CALCIUM, SERUM 9.2 mg/dL (8.5-10.1); CREATININE 1.3 mg/dL (0.6-1.3); MAGNESIUM 2.1 mg/dL (1.8-2.4); PHOSPHORUS 3.7 mg/dL (2.5-4.9); POTASSIUM 4.4 mmol/L (3.5-5.1)
--- NOTE | 2017-09-09 07:43 | NUR ---
TELE/RN CLOSING NOTES REPORT GIVEN TO AM RN FOR ALFREDO. PATIENT ALERT, ORIENTED X3, ABLE TO VERBALIZE NEEDS, ON TELE/READING SR AT 70, NO PAIN VERBALIZED AND OBSERVED, REQUIRE OXYGEN VIA NC. SKIN INTACT AND DRY, CALL LIGHTS WITHIN REACH. BED ALARM ON.
[2017-09-09 08:00] VITALS: BP 120/76
--- NOTE | 2017-09-09 08:07 | NUR ---
ACCESS SERVICES ASSISTANT NOTES PATIENT IN BED, AWAKE, A/O X3. SINUS RHYTHM WITH BBB HR 90 ON THE TELE MONITOR. ON ROOM AIR, TOLERATING WELL, NO SOB. APPEARS COMFORTABLE IN BED. IVC IN LEFT AC G20 PATENT AND INTACT, FLUSHES WELL. CALL LIGHT WITHIN REACH. WILL CONT TO MONITOR.
[2017-09-09] MEDS: ASPIRIN 325 MG TABLET PO SCH (09:37)
[2017-09-09] MEDS: CARVEDILOL 6.25 MG TABLET PO SCH ×2 (09:38→21:00)
[2017-09-09 12:00] VITALS: BP 102/72
[2017-09-09 16:00] VITALS: BP 117/62
--- NOTE | 2017-09-09 19:30 | NUR ---
RN OPENING NOTES RECEIVED PT IN BED, ALERT AND VERBALLY RESPONSIVE, ORIENTED X 3. NOTED PT WITH NO SOB, BREATHING EVEN AND UNLABORED, NO C/O PAIN AT THIS TIME AND IN NO ACUTER DISTRESS. PATIENT UNDER TELE MONITORING WITH SR @ 90 WITH BBB. ALL PATIENT'S NEEDS ATTENDED TO, CALL LIGHT PLACED WITHIN EASY REACH. BED LOCKED IN PLACE AND PLACED IN LOW POSITION.WILL CONTINUE TO MONITOR PATIENT.
--- NOTE | 2017-09-09 19:30 | NUR ---
PROCESS DEVELOPMENT ENGINEER CLOSING NOTES PATIENT IN BED, A/O X3. ON TELE MONITOR SINUS RHYTHM WITH BBB HR 89, APPEARS COMFORTABLE IN BED, NO C/O ANY DISCOMFORT. BLOOD SUGAR MONITORED WITH ISS COVERAGE ORDERED. FOR WOUND CARE CONSULT. CALL LIGHT WITHIN REACH. ENDORSED TO NUT FEEDER RN FOR ALFREDO.
[2017-09-09 20:00] VITALS: BP 112/76
[2017-09-10 04:00] VITALS: BP 103/69
[2017-09-10] MEDS: LEVOFLOXACIN 750 MG /D5W 150ML 750 MG in PREMIX 1 EA IV SCH (05:20)
[2017-09-10] MEDS: BLOOD SUGAR DIAGNOSTIC 1 EACH STRIP IN SCH ×4 (06:35→21:18)
[2017-09-10] MEDS: INSULIN REGULAR, HUMAN 100 UNIT/ML 3 ML VIAL SQ PRN ×4 (06:42→21:21)
[2017-09-10 06:45] LABS: BASOPHILS % (AUTO) 0.1 % (0.0-2.0); HEMATOCRIT 37 % (39-51); HEMOGLOBIN 12.1 g/dL (13.5-17.5); LYMPHOCYTES # (AUTO) 1.4 /CMM (0.8-4.8); LYMPHOCYTES % (AUTO) 10.7 % (20.0-44.0); MEAN CORPUSCULAR HEMOGLOBIN 27 PG (26.0-33.0); MEAN CORPUSCULAR HGB CONC 33 g/dl (31.0-36.0); MEAN CORPUSCULAR VOLUME 83 fL (80-96); MONOCYTES # (AUTO) 0.7 /CMM (0.1-1.30); MONOCYTES % (AUTO) 5.5 % (2.0-12.0); NEUTROPHILS # (AUTO) 11.2 /CMM (1.8-8.9); NEUTROPHILS % (AUTO) 83.7 % (43.0-81.0); PLATELET COUNT (AUTO) 239 /CMM (150-450); RDW COEFFICIENT OF VARIATION 15.9 (11.5-15.0); RED BLOOD CELL COUNT(AUTO) 4.42 MIL/uL (4.5-6.0); WHITE BLOOD COUNT (AUTO) 13.4 K/uL (4.3-11.0)
[2017-09-10 07:17] LABS: CALCIUM, SERUM 8.8 mg/dL (8.5-10.1); CREATININE 0.9 mg/dL (0.6-1.3); MAGNESIUM 1.9 mg/dL (1.8-2.4); PHOSPHORUS 3.2 mg/dL (2.5-4.9)
[2017-09-10 07:25] LABS: POTASSIUM 4.2 mmol/L (3.5-5.1)
--- NOTE | 2017-09-10 07:25 | NUR ---
RN CLOSING NOTES PATIENT IN BED, ASLEEP BUT EASILY AROUSABLE, NO SOB NOTED, BREATHING EVEN AND UNLABORED, ON 02 VIA NC @2LPM, O2 SAT @ 97%. UNDER TELE MONITORING, NOTED WITH SR @ 68 WITH BBB AND 1ST DEG HEART BLOCK. NO C/O PAIN AT THIS TIME AND IN NO ACUTE DISTRESS. ALL PATIENT'S NEEDS ATTENDED TO. PLACED CALL LIGHT WITHIN EASY REACH. ENDORSED TO AM NURSE FOR CONTINUITY OF CARE.
[2017-09-10 08:00] VITALS: BP 100/66
--- NOTE | 2017-09-10 08:00 | NUR ---
RN OPENING NOTES RECEIVED PATIENT IN BED, ALERT ORIENTED, VERBALLY RESPONSIVE. HOB ELEVATED. NO SOB NOTED. NO SIGN OF ACUTE DISTRESS NOTED. BREATHING REGULAR AND UNLABORED. SKIN IS SOFT AND WARM TO TOUCH. IV ACCESS INTACT AND PATENT. NO REDNESS. NO S/SX OF INFILTRATION. SAFETY MEASURES IN PLACE. CALL LIGHT PLACED WITHIN REACH. WILL CONTINUE TO MONITOR ACCORDINGLY.
[2017-09-10] MEDS: ASPIRIN 325 MG TABLET PO SCH (08:58)
[2017-09-10] MEDS: methylPREDNISolone SOD SUCC 40 MG/ML VIAL IV SCH ×3 (08:58→17:39)
[2017-09-10] MEDS: CARVEDILOL 6.25 MG TABLET PO SCH ×2 (09:08→21:10)
--- NOTE | 2017-09-10 11:02 | NUR ---
WOUND CARE CONSULT: PT PRESENTS WITH FRAGILE BONY AREA OF SCARRING TO SACRUM. ALL SKIN PROTECTION MEASURES IN PLACE AND DISCUSSED WITH NURSING STAFF. PT ON AGUILAR ISOFLEX LOW AIRLOSS BED. WILL SEE PRN. KRAUSE IN AGREEMENT WITH PLAN OF CARE. Addendum: 09/10/17 at 1104 by CHRISTELLE DAO WNDNU Amended: Links added.
--- NOTE | 2017-09-10 12:00 | NUR ---
RN NOTES PATIENT SEEN AND EVALUATED BY DR. REZA. ORDERS NOTED AND CARRIED OUT.
[2017-09-10 16:00] VITALS: BP 105/70
--- NOTE | 2017-09-10 19:30 | NUR ---
RN NOTES RECEIVED PATIENT IN AWAKE, AO X 3, ABLE TO MAKE NEEDS KNOWN. NO ACUTE DISTRESS NOTED. DENIES ANY PAIN AT THIS TIME. IV SITE PATENT, INTACT; FLUSHED. SAFETY REMINDERS GIVEN. ON LOW BED WITH BILATERAL UPPER SIDE RAILS UP. CALL SALMON WITHIN EASY REACH. WILL CONTINUE TO MONITOR.
--- NOTE | 2017-09-10 19:30 | NUR ---
RN NOTES PATIENT IN BED RESTING NO SOB OR ACUTE DISTRESS NOTED. ALL DUE MEDICATIONS ADMINISTERED. ALL NEEDS MET. PERIPHERAL IV INTACT PATENT. BED IN LOW LOCKED POSITION. CALL LIGHT WITHIN REACH. ENDORSED CARE TO PM SHIFT.
[2017-09-10 20:00] VITALS: BP 103/72
[2017-09-10] MEDS: FUROSEMIDE 20 MG/2 ML VIAL IV SCH (21:10)
[2017-09-10] MEDS: ATORVASTATIN 40 MG TABLET PO SCH (21:10)
--- NOTE | 2017-09-11 06:15 | NUR ---
RN NOTES PATIENT ASLEEP, EASILY AROUSABLE. RESPIRATIONS EVEN. NO SIGNS OF PAIN NOTED. DUE MEDS GIVEN WITH NO ASE NOTED. NEEDS ATTENDED. SAFETY PRECAUTIONS AND COMFORT MEASURES IN PLACE. WILL GIVE REPORT TO DAY SHIFT FOR CONTINUITY OF CARE.
[2017-09-11] MEDS: BLOOD SUGAR DIAGNOSTIC 1 EACH STRIP IN SCH ×4 (06:39→21:23)
[2017-09-11] MEDS: LEVOFLOXACIN 750 MG /D5W 150ML 750 MG in PREMIX 1 EA IV SCH (06:40)
[2017-09-11] MEDS: INSULIN REGULAR, HUMAN 100 UNIT/ML 3 ML VIAL SQ PRN ×4 (06:40→21:29)
[2017-09-11 07:51] LABS: BASOPHILS % (AUTO) 0.2 % (0.0-2.0); HEMATOCRIT 40 % (39-51); HEMOGLOBIN 13.2 g/dL (13.5-17.5); LYMPHOCYTES # (AUTO) 1.8 /CMM (0.8-4.8); MEAN CORPUSCULAR HEMOGLOBIN 27 PG (26.0-33.0); MEAN CORPUSCULAR HGB CONC 33 g/dl (31.0-36.0); MEAN CORPUSCULAR VOLUME 81 fL (80-96); MONOCYTES # (AUTO) 0.5 /CMM (0.1-1.30); MONOCYTES % (AUTO) 3.1 % (2.0-12.0); NEUTROPHILS # (AUTO) 13.7 /CMM (1.8-8.9); NEUTROPHILS % (AUTO) 85.7 % (43.0-81.0); PLATELET COUNT (AUTO) 266 /CMM (150-450); RED BLOOD CELL COUNT(AUTO) 4.92 MIL/uL (4.5-6.0)
[2017-09-11 08:00] VITALS: BP 107/74
--- NOTE | 2017-09-11 08:00 | NUR ---
RN NOTES RECEIVED PATIENT IN THE BED, A/O X3, NO ACUTE DISTRESS, NO RESPIRATORY DISTRESS, NO C/O PAIN AT THIS TIME, ENCOURAGED TO EXPRESS FEELINGS AND CONCERNS, V/S STABLE. NEEDS ATTENDED AND ANTICIPATED, CALL LIGHT WITHIN TO REACH, ASSIST TURN AND REPOSITION Q 2 HR, IV ACCESS ON LEFT AC AREA INTACT.
[2017-09-11] MEDS: FUROSEMIDE 20 MG/2 ML VIAL IV SCH (08:50)
[2017-09-11] MEDS: ASPIRIN 81 MG TAB.CHEW PO SCH (08:50)
[2017-09-11] MEDS: methylPREDNISolone SOD SUCC 40 MG/ML VIAL IV SCH ×3 (08:50→18:17)
[2017-09-11] MEDS: CARVEDILOL 6.25 MG TABLET PO SCH ×2 (08:51→21:23)
[2017-09-11 09:04] LABS: CALCIUM, SERUM 8.9 mg/dL (8.5-10.1); POTASSIUM 4.4 mmol/L (3.5-5.1)
[2017-09-11 10:00] VITALS: BP 107/74
--- NOTE | 2017-09-11 10:00 | NUR ---
RN NOTES PATIENT IN THE BED NO ACUTE DISTRESS, MED COMPLAINT, PATIENT WITH PT, CONTINUED MONITORING.
--- NOTE | 2017-09-11 13:00 | NUR ---
RN NOTES BS-231MG/DL COVERAGE GIVEN, PATIENT SITTING IN THE CHAIR, EATING, NO ACUTE RESPIRATORY DISTRESS, CALL LIGHT WITHIN TO REACH, CONTINUED MONITORING.
--- NOTE | 2017-09-11 17:00 | NUR ---
RN NOTES BS-210 MG/DL, SCHEDULED MEDICATION ADMINISTERED, V/S STABLE, PATIENT REFUSED PAIN AT THIS TIME, ASSIST TURN AND REPOSITION Q 2HR. CALL LIGHT WITHIN TO REACH, SAFETY PRECAUTION MAINTAINED ALL THE TIME.
--- NOTE | 2017-09-11 18:45 | NUR ---
RN NOTES PATIENT IN THE BED STABLE AT THIS TIME, NEEDS ATTENDED AND ANTICIPATED. CALL LIGHT WITHIN TO REACH, CONTINUED MONITORING. ENDORSED ONCOMING NURSE FOR CONTINUATION OF CARE.
--- NOTE | 2017-09-11 19:15 | NUR ---
MS/RN OPENING NOTES PT RECEIVED RESTING COMFORTABLY IN BED. A/OX4. ON 2L O2 VIA NC, BREATHING EVEN AND UNLABORED. IN NO APPARENT DISTRESS. DENIES SOB OR PAIN AT THIS TIME. IV TO LEFT WRIST PATENT AND INTACT. PT TO BE NPO POST MIDNIGHT FOR CARDIAC CATH TOMORROW. BED IN LOW/LOCKED POSITION WITH CALL LIGHT IN REACH. SIDE RAILS UPX2. WILL CONTINUE TO MONITOR
[2017-09-11 20:00] VITALS: BP 116/74
[2017-09-11] MEDS: ATORVASTATIN 40 MG TABLET PO SCH (21:23)
--- NOTE | 2017-09-11 21:30 | NUR ---
MS/RN NOTES BLOOD DONLF=[id number], NO INSULIN COVERAGE ADMINISTERED. PT TO BE NPO POST MIDNIGHT FOR CARDIAC CATH TOMORROW. PT VERBALIZED UNDERSTANDING
[2017-09-12 02:36] VITALS: BP 116/74
[2017-09-12] MEDS: LEVOFLOXACIN 750 MG /D5W 150ML 750 MG in PREMIX 1 EA IV SCH (06:04)
[2017-09-12] MEDS: BLOOD SUGAR DIAGNOSTIC 1 EACH STRIP IN SCH ×2 (06:40→12:00)
[2017-09-12] MEDS: INSULIN REGULAR, HUMAN 100 UNIT/ML 3 ML VIAL SQ PRN (06:41)
--- NOTE | 2017-09-12 06:50 | NUR ---
MS/RN CLOSING NOTES PT AWAKE, RESTING COMFORTABLY IN BED. A/OX3. REMAINS ON 2L O2 VIA NC, BREATHING EVEN AND UNLABORED. IN NO APPARENT DISTRESS. DENIES SOB OR PAIN AT THIS TIME. NO COUGH NOTED DURING SHIFT. IV TO LEFT WRIST PATENT AND INTACT, CURRENTLY RUNNING IV ABX. BLOOD SUGAR THIS PZHIUSI=[id number], NO INSULIN COVERAGE DUE TO PATIENT BEING NPO SINCE MIDNIGHT FOR CARDIAC CATH TODAY AT [facility]. PROFESSOR OF GEOLOGY TIME IS APPROX 0900. PT AWARE. NO CONCERNS OR QUESTIONS AT THIS TIME. NO SIGNIFICANT CHANGES OVERNIGHT. ALL NEEDS MET. MADE PT COMFORTABLE DURING SHIFT. BED REMAINS IN LOW/LOCKED POSITION WITH CALL LIGHT IN REACH AND SIDE RAILS UPX2. WILL ENDORSE TO DAY SHIFT RN ALFREDO.
--- NOTE | 2017-09-12 07:00 | NUR ---
MS/RN NOTES SPOKE TO AMANDA WITH AMBULANCE TO CONFIRM EMPLOYEE RELATIONS ASSISTANT TIME OF 0900 TO [facility] FOR CARDIAC CATH. UNSURE IF PATIENT WILL STAY AT [facility] OR WILL BE COMING BACK TO [facility]. FOR NOW, SHE SAID IT WILL BE A ONE WAY TRANSPORT TO [facility] AND WE CAN CALL BACK FOR TRANSPORT BACK TO [facility] IF NEEDED. WILL ENDORSE TO DAY SHIFT
--- NOTE | 2017-09-12 07:15 | NUR ---
MS/RN NOTES MARIA ELENA, SPORTS TRAINER FROM [facility] CALLED TO CONFIRM CARDIAC CATH PROCEDURE TODAY. PROCEDURE TIME IS CHANGED TO EARLIER TIME OF [phone]. INFORMED HER OF QUALITY AUDIT REPRESENTATIVE TIME WITH AMBULANCE AT 0900. NUMBER FOR CARDIAC CATH [phone]
--- NOTE | 2017-09-12 07:25 | NUR ---
MS/RN NOTES CALLED CHLOE FROM [facility] CARDIAC CATH TO GIVE REPORT.
[2017-09-12 08:00] VITALS: BP 102/70
--- NOTE | 2017-09-12 08:00 | NUR ---
RN NOTES RECEIVED PATIENT IN THE ROOM A/O X3/4, NO ACUTE RESPIRATORY DISTRESS, PATIENT GOING TO HAVE A PROCEDURE CARDIAC CATH, IV ACCESS LEFT WRIST, V/S TAKEN STABLE BP- 102/90, P-69, R-18, T-97.6, O2-99 ROOM AIR, , PATIENT HAS NO C/O PAIN AT THIS TIME, NEEDS ATTENDED ANTICIPATED. , PATIENT NPO, HOLD MORNING MEDICATION, CALL LIGHT WITHIN TO REACH, CONTINUED MONITORING.
[2017-09-12 08:21] LABS: BASOPHILS % (AUTO) 0.1 % (0.0-2.0); EOSINOPHILS % (AUTO) 0.1 % (0.0-6.0); HEMATOCRIT 38 % (39-51); HEMOGLOBIN 12.5 g/dL (13.5-17.5); LYMPHOCYTES # (AUTO) 1.8 /CMM (0.8-4.8); LYMPHOCYTES % (AUTO) 10.3 % (20.0-44.0); MEAN CORPUSCULAR HEMOGLOBIN 27 PG (26.0-33.0); MEAN CORPUSCULAR HGB CONC 33 g/dl (31.0-36.0); MEAN CORPUSCULAR VOLUME 83 fL (80-96); MONOCYTES # (AUTO) 0.7 /CMM (0.1-1.30); NEUTROPHILS # (AUTO) 15.3 /CMM (1.8-8.9); NEUTROPHILS % (AUTO) 85.5 % (43.0-81.0); PLATELET COUNT (AUTO) 258 /CMM (150-450); RDW COEFFICIENT OF VARIATION 16.4 (11.5-15.0); WHITE BLOOD COUNT (AUTO) 17.9 K/uL (4.3-11.0)
[2017-09-12 08:44] LABS: CALCIUM, SERUM 8.4 mg/dL (8.5-10.1); POTASSIUM 4.2 mmol/L (3.5-5.1)
--- NOTE | 2017-09-12 08:47 | NUR ---
DISCHARGE ORDER PATIENT TRANSFER [facility] FOR CARDIAC CATH PROCEDURE. PATIENT NPO, DISCHARGE ORDER REVIEWED AND EXPLAINED TO PATIENT. PATIENT VERBALIZED UNDERSTANDING, BELONGING RETURNED BACK TO THE PATIENT, V/S TAKEN STABLE. PATIENT GUEST HISTORY CLERK BY AMBULANCE. FAMILY AWARE OF.
[2017-09-12 08:53] VITALS: BP 102/90
[2017-09-12] MEDS: ASPIRIN 81 MG TAB.CHEW PO SCH (08:56)
[2017-09-12] MEDS: methylPREDNISolone SOD SUCC 40 MG/ML VIAL IV SCH ×2 (08:56→12:26)
[2017-09-12 08:57] VITALS: BP 102/90
[2017-09-12] MEDS: CARVEDILOL 6.25 MG TABLET PO SCH (08:57)
[2017-09-12] MEDS ORDERED: FUROSEMIDE 20 MG TABLET PO SCH (09:00)
== END 2017-09-12 12:00 | disposition short-term general hospital (02) | DRG 871 ==
LOC: ER 18:37 → TELE 21:29 → MED 09-10 18:07
PROVIDERS: ADMIT Nurse Practitioner Acute Care; ATTEND Nurse Practitioner Acute Care
DX: A41.9 Sepsis, unspecified organism (principal); J18.9 Pneumonia, unspecified organism; I21.4 Non-ST elevation (NSTEMI) myocardial infarction; J96.00 Acute respiratory failure, unspecified whether with hypoxia or hypercapnia; N17.0 Acute kidney failure with tubular necrosis; I50.23 Acute on chronic systolic (congestive) heart failure; L89.152 Pressure ulcer of sacral region, stage 2; E87.1 Hypo-osmolality and hyponatremia; J44.1 Chronic obstructive pulmonary disease with (acute) exacerbation; I42.9 Cardiomyopathy, unspecified; I11.0 Hypertensive heart disease with heart failure; E86.0 Dehydration; E78.5 Hyperlipidemia, unspecified; F17.210 Nicotine dependence, cigarettes, uncomplicated; G35 Multiple sclerosis; I25.5 Ischemic cardiomyopathy; Z66 Do not resuscitate; Z79.82 Long term (current) use of aspirin; E11.65 Type 2 diabetes mellitus with hyperglycemia; Z79.84 Long term (current) use of oral hypoglycemic drugs; Z99.3 Dependence on wheelchair
CPT/HCPCS: 36415; 71045-TC; 80048-TC; 82247-TC; 82248-TC; 82962-TC; 83605-TC; 83735-TC; 83880; 84100-TC; 84484-TC; 85025-TC; 85730-TC; 87040-TC; 87081-TC; 87400; A4216; A4606; J0692; J1815; J1940; J1956; J2270; J2920; J3370; J7040; J7050; J7060; Z7610

== ENCOUNTER 2017-11-28 16:06 | Inpatient (IN) | payer OTHER ==
[~2017-11-28] VITALS: Ht 172.7 cm; Wt 65.3 kg
[~2017-11-28 16:06] MED LIST changes: +ACET-868 PO; -ALBU8.5H2 INH; +ASPI-992 PO; -ATOR20TA PO; +CARV6.25 PO; +FURO-144 PO; +HYDR-552 PO; -LEVO500T90 PO; +POTA20TA83 PO; -PRED10TA PO; -PRED20TA PO; -PRED5TAB48 PO
[2017-11-28 16:38] LABS: BASOPHILS # (AUTO) 0.7 /CMM (0.0-0.2); EOSINOPHILS # (AUTO) 0.1 /CMM (0.0-0.7); EOSINOPHILS % (AUTO) 0.3 % (0.0-6.0); HEMATOCRIT 40 % (39-51); HEMOGLOBIN 13.4 g/dL (13.5-17.5); LYMPHOCYTES % (AUTO) 13.5 % (20.0-44.0); MEAN CORPUSCULAR HEMOGLOBIN 27 PG (26.0-33.0); MEAN CORPUSCULAR HGB CONC 34 g/dl (31.0-36.0); MEAN CORPUSCULAR VOLUME 81 fL (80-96); MONOCYTES % (AUTO) 4.4 % (2.0-12.0); NEUTROPHILS # (AUTO) 17.6 /CMM (1.8-8.9); NEUTROPHILS % (AUTO) 78.8 % (43.0-81.0); PLATELET COUNT (AUTO) 379 /CMM (150-450); RED BLOOD CELL COUNT(AUTO) 4.94 MIL/uL (4.5-6.0); WHITE BLOOD COUNT (AUTO) 22.4 K/uL (4.3-11.0)
[2017-11-28 16:45] VITALS: BP 120/69
[2017-11-28 16:49] LABS: CALCIUM, SERUM 9.4 mg/dL (8.5-10.1); CREATININE 1.2 mg/dL (0.6-1.3); POTASSIUM 4.3 mmol/L (3.5-5.1)
[2017-11-28 16:52] LABS: INR 1.1 (0.85-1.15)
[2017-11-28 16:57] LABS: TROPONIN I 0.254 ng/mL (0.00-0.056)
[2017-11-28] MEDS ORDERED: FUROSEMIDE 40 MG/4 ML VIAL IV ONE (17:00)
[2017-11-28 17:01] LABS: BILIRUBIN,DIRECT 0.3 mg/dL (0.0-0.2); BILIRUBIN,TOTAL 1.2 mg/dL (0.2-1.0); TOTAL PROTEIN, SERUM 7.6 g/dL (6.4-8.2)
[2017-11-28] MEDS ORDERED: FUROSEMIDE 40 MG/4 ML VIAL ONE (17:23)
[2017-11-28] MEDS ORDERED: ATOR40TA PO (17:42)
[2017-11-28] MEDS ORDERED: ASPI-1169 PO (17:42)
[2017-11-28] MEDS ORDERED: PIPERACILLIN /TAZOBACTAM 3.375 G VIAL IV ONE (17:48)
[2017-11-28] MEDS ORDERED: PIPERACILLIN /TAZOBACTAM 3.375 G in IV D5W 50 ML IV ONE (18:00)
[2017-11-28 18:33] LABS: APPEARANCE,URINE Clear (CLEAR); BILIRUBIN,URINE Negative (NEGATIVE); BLOOD, URINE Moderate Ery/uL (NEGATIVE); COLOR,URINE Yellow (YELLOW); KETONES,URINE Negative (NEGATIVE); LEUKOCYTE ESTERASE ,URINE Small (NEGATIVE); NITRITE, URINE Negative (NEGATIVE); PH,URINE 6.5 (5.0-8.0); PROTEIN,URINE 100 mg/dl (NEGATIVE); UGLUCOSE Negative (NEGATIVE); UROBILINOGEN,URINE 0.2 EU/dL (0.2)
[2017-11-28 18:50] LABS: BACTERIA,URINE Few /HPF (None Seen); HYALINE CASTS, URINE Few /LPF (None Seen); SQUAMOUS EPITHELIAL CELL,UR Few /HPF (None Seen)
[2017-11-28 18:51] LABS: MUCUS,URINE Few /LPF (None Seen); URINE AMORPHOUS URATE Few /HPF (None Seen)
[2017-11-28 18:52] LABS: WBC,URINE 21-50 /HPF (0-3)
[2017-11-28 20:00] VITALS: BP 103/72
[2017-11-28] MEDS ORDERED: ONDANSETRON HCL/PF 4 MG/2 ML VIAL IVP PRN (22:00)
[2017-11-28] MEDS ORDERED: ACETAMINOPHEN 325 MG TABLET PO PRN (22:00)
[2017-11-28] MEDS ORDERED: Z GUARD REMEDY 2 OZ OINT TP PRN (22:00)
[2017-11-28] MEDS: ATORVASTATIN 40 MG TABLET PO SCH (23:33)
[2017-11-28] MEDS: ENOXAPARIN SODIUM 40 MG/0.4 ML DISP.SYRIN SQ SCH (23:33)
[2017-11-28] MEDS: FUROSEMIDE 40 MG/4 ML VIAL IV SCH (23:39)
[2017-11-29] VITALS (7 sets, daily range): BP systolic 94–117; BP diastolic 56–78
[2017-11-29] MEDS: FUROSEMIDE 40 MG/4 ML VIAL IV SCH ×3 (03:52→16:01)
[2017-11-29 06:48] LABS: BASOPHILS # (AUTO) 0.1 /CMM (0.0-0.2); BASOPHILS % (AUTO) 0.3 % (0.0-2.0); EOSINOPHILS % (AUTO) 0.2 % (0.0-6.0); HEMATOCRIT 37 % (39-51); HEMOGLOBIN 12.3 g/dL (13.5-17.5); LYMPHOCYTES # (AUTO) 2.4 /CMM (0.8-4.8); LYMPHOCYTES % (AUTO) 13.2 % (20.0-44.0); MEAN CORPUSCULAR HEMOGLOBIN 27 PG (26.0-33.0); MEAN CORPUSCULAR HGB CONC 33 g/dl (31.0-36.0); MEAN CORPUSCULAR VOLUME 83 fL (80-96); MONOCYTES # (AUTO) 0.7 /CMM (0.1-1.30); MONOCYTES % (AUTO) 3.7 % (2.0-12.0); NEUTROPHILS # (AUTO) 15.1 /CMM (1.8-8.9); NEUTROPHILS % (AUTO) 82.6 % (43.0-81.0); PLATELET COUNT (AUTO) 320 /CMM (150-450); RDW COEFFICIENT OF VARIATION 17.8 (11.5-15.0); RED BLOOD CELL COUNT(AUTO) 4.49 MIL/uL (4.5-6.0); WHITE BLOOD COUNT (AUTO) 18.3 K/uL (4.3-11.0)
[2017-11-29 06:57] LABS: ALBUMIN 2.9 g/dL (3.4-5.0); BILIRUBIN,TOTAL 1.3 mg/dL (0.2-1.0); CALCIUM, SERUM 8.7 mg/dL (8.5-10.1); CREATININE 1.2 mg/dL (0.6-1.3); MAGNESIUM 1.9 mg/dL (1.8-2.4); PHOSPHORUS 3.7 mg/dL (2.5-4.9); POTASSIUM 3.3 mmol/L (3.5-5.1); TOTAL PROTEIN, SERUM 7.3 g/dL (6.4-8.2)
[2017-11-29 07:16] LABS: THYROID STIMULATING HORMONE 1.662 uIU/mL (0.358-3.74)
[2017-11-29] MEDS: FUROSEMIDE 40 MG TABLET PO SCH ×2 (09:00→17:00)
[2017-11-29] MEDS: CARVEDILOL 6.25 MG TABLET PO SCH ×2 (09:00→21:28)
[2017-11-29] MEDS: ASPIRIN 81 MG TAB.CHEW PO SCH (09:19)
[2017-11-29] MEDS ORDERED: POTASSIUM CHLORIDE 20 MEQ TAB.PRT.SR PO SCH (09:30)
[2017-11-29] MEDS: FLUCONAZOLE (100 MG) 100 MG TABLET PO SCH (17:39)
[2017-11-29] MEDS: PIPERACILLIN /TAZOBACTAM 3.375 G in IV NS 0.9% 50 ML IV SCH ×2 (17:43→23:29)
[2017-11-29] MEDS: TICAGRELOR 90 MG TABLET PO SCH (18:53)
[2017-11-29] MEDS: ENOXAPARIN SODIUM 40 MG/0.4 ML DISP.SYRIN SQ SCH (21:25)
[2017-11-29] MEDS: ATORVASTATIN 40 MG TABLET PO SCH (21:27)
[2017-11-29] MEDS ORDERED: TICAGRELOR 90 MG TABLET PO ONE (22:00)
[2017-11-30 04:14] VITALS: BP 103/64
[2017-11-30] MEDS: MORPHINE SULFATE INJ 2 MG/ML DISP.SYRIN IV PRN ×3 (04:17→19:44)
[2017-11-30] MEDS: PIPERACILLIN /TAZOBACTAM 3.375 G in IV NS 0.9% 50 ML IV SCH ×3 (05:32→17:53)
[2017-11-30 07:27] LABS: BASOPHILS % (AUTO) 0.1 % (0.0-2.0); EOSINOPHILS # (AUTO) 0.2 /CMM (0.0-0.7); EOSINOPHILS % (AUTO) 1.3 % (0.0-6.0); HEMATOCRIT 38 % (39-51); HEMOGLOBIN 12.4 g/dL (13.5-17.5); LYMPHOCYTES # (AUTO) 1.9 /CMM (0.8-4.8); LYMPHOCYTES % (AUTO) 11.6 % (20.0-44.0); MEAN CORPUSCULAR HEMOGLOBIN 27 PG (26.0-33.0); MEAN CORPUSCULAR HGB CONC 33 g/dl (31.0-36.0); MEAN CORPUSCULAR VOLUME 82 fL (80-96); MONOCYTES # (AUTO) 0.5 /CMM (0.1-1.30); MONOCYTES % (AUTO) 3.2 % (2.0-12.0); NEUTROPHILS # (AUTO) 13.5 /CMM (1.8-8.9); NEUTROPHILS % (AUTO) 83.8 % (43.0-81.0); PLATELET COUNT (AUTO) 310 /CMM (150-450); RDW COEFFICIENT OF VARIATION 17.7 (11.5-15.0); RED BLOOD CELL COUNT(AUTO) 4.59 MIL/uL (4.5-6.0); WHITE BLOOD COUNT (AUTO) 16.1 K/uL (4.3-11.0)
[2017-11-30 07:28] LABS: CALCIUM, SERUM 8.8 mg/dL (8.5-10.1); CREATININE 1.2 mg/dL (0.6-1.3); MAGNESIUM 2.1 mg/dL (1.8-2.4); POTASSIUM 3.4 mmol/L (3.5-5.1)
[2017-11-30 08:00] VITALS: BP 100/63
[2017-11-30] MEDS: CARVEDILOL 6.25 MG TABLET PO SCH ×2 (09:00→21:03)
[2017-11-30] MEDS ORDERED: POTASSIUM CHLORIDE 20 MEQ TAB.PRT.SR PO SCH (09:30)
[2017-11-30] MEDS: TICAGRELOR 90 MG TABLET PO SCH ×2 (10:20→16:59)
[2017-11-30] MEDS: NYSTATIN (PYXIS) 500,000 UNIT/5 ML ORAL.SUSP PO SCH ×3 (10:21→16:59)
[2017-11-30] MEDS: FUROSEMIDE 40 MG TABLET PO SCH ×2 (10:21→16:59)
[2017-11-30] MEDS: ASPIRIN 81 MG TAB.CHEW PO SCH (10:21)
[2017-11-30] MEDS: FLUCONAZOLE (100 MG) 100 MG TABLET PO SCH (10:21)
[2017-11-30 16:00] VITALS: BP 101/58
[2017-11-30 20:00] VITALS: BP 90/59
[2017-11-30] MEDS: ATORVASTATIN 40 MG TABLET PO SCH (21:02)
[2017-11-30] MEDS: ENOXAPARIN SODIUM 40 MG/0.4 ML DISP.SYRIN SQ SCH (21:02)
[2017-11-30] MEDS: MUPIROCIN OINT 2% 22 GM TUBE SCH (21:04)
[2017-11-30] MEDS: LEVOFLOXACIN (500MG) 500 MG TABLET PO SCH (22:09)
[2017-12-01] VITALS (7 sets, daily range): BP systolic 90–105; BP diastolic 57–68
[2017-12-01 07:24] LABS: CALCIUM, SERUM 8.6 mg/dL (8.5-10.1); MAGNESIUM 2.1 mg/dL (1.8-2.4); PHOSPHORUS 3.3 mg/dL (2.5-4.9); POTASSIUM 3.2 mmol/L (3.5-5.1)
[2017-12-01 07:28] LABS: BASOPHILS % (AUTO) 0.3 % (0.0-2.0); EOSINOPHILS # (AUTO) 0.4 /CMM (0.0-0.7); HEMATOCRIT 35 % (39-51); HEMOGLOBIN 11.7 g/dL (13.5-17.5); LYMPHOCYTES # (AUTO) 2.4 /CMM (0.8-4.8); LYMPHOCYTES % (AUTO) 23.1 % (20.0-44.0); MEAN CORPUSCULAR HEMOGLOBIN 28 PG (26.0-33.0); MEAN CORPUSCULAR HGB CONC 34 g/dl (31.0-36.0); MEAN CORPUSCULAR VOLUME 82 fL (80-96); MONOCYTES # (AUTO) 0.6 /CMM (0.1-1.30); MONOCYTES % (AUTO) 6.2 % (2.0-12.0); NEUTROPHILS # (AUTO) 6.7 /CMM (1.8-8.9); NEUTROPHILS % (AUTO) 66.4 % (43.0-81.0); PLATELET COUNT (AUTO) 303 /CMM (150-450); RDW COEFFICIENT OF VARIATION 17.5 (11.5-15.0); RED BLOOD CELL COUNT(AUTO) 4.23 MIL/uL (4.5-6.0); WHITE BLOOD COUNT (AUTO) 10.2 K/uL (4.3-11.0)
[2017-12-01] MEDS ORDERED: MUPIROCIN OINT 2% 22 GM TUBE SCH (09:00)
[2017-12-01] MEDS: ASPIRIN 81 MG TAB.CHEW PO SCH (09:04)
[2017-12-01] MEDS: FUROSEMIDE 40 MG TABLET PO SCH ×2 (09:05→16:04)
[2017-12-01] MEDS: NYSTATIN (PYXIS) 500,000 UNIT/5 ML ORAL.SUSP PO SCH ×3 (09:05→16:04)
[2017-12-01] MEDS: FLUCONAZOLE (100 MG) 100 MG TABLET PO SCH (09:05)
[2017-12-01] MEDS: CARVEDILOL 6.25 MG TABLET PO SCH ×2 (09:05→21:00)
[2017-12-01] MEDS: MUPIROCIN OINT 2% 22 GM TUBE SCH ×2 (09:06→21:12)
[2017-12-01] MEDS: TICAGRELOR 90 MG TABLET PO SCH ×2 (09:08→16:04)
[2017-12-01] MEDS: POTASSIUM CHLORIDE 20 MEQ TAB.PRT.SR PO SCH ×2 (12:08→13:30)
[2017-12-01] MEDS ORDERED: POTASSIUM CHLORIDE 20 MEQ TAB.PRT.SR PO SCH (16:00)
[2017-12-01] MEDS: LEVOFLOXACIN (500MG) 500 MG TABLET PO SCH (21:11)
[2017-12-01] MEDS: ENOXAPARIN SODIUM 40 MG/0.4 ML DISP.SYRIN SQ SCH (21:11)
[2017-12-01] MEDS: ATORVASTATIN 40 MG TABLET PO SCH (21:11)
[2017-12-01] MEDS: MORPHINE SULFATE INJ 2 MG/ML DISP.SYRIN IV PRN (21:26)
[2017-12-02 07:16] LABS: BASOPHILS # (AUTO) 0.1 /CMM (0.0-0.2); BASOPHILS % (AUTO) 0.6 % (0.0-2.0); EOSINOPHILS # (AUTO) 0.5 /CMM (0.0-0.7); EOSINOPHILS % (AUTO) 4.4 % (0.0-6.0); HEMATOCRIT 37 % (39-51); HEMOGLOBIN 12.3 g/dL (13.5-17.5); LYMPHOCYTES # (AUTO) 1.8 /CMM (0.8-4.8); MEAN CORPUSCULAR HEMOGLOBIN 28 PG (26.0-33.0); MEAN CORPUSCULAR HGB CONC 33 g/dl (31.0-36.0); MEAN CORPUSCULAR VOLUME 83 fL (80-96); MONOCYTES # (AUTO) 0.6 /CMM (0.1-1.30); MONOCYTES % (AUTO) 5.6 % (2.0-12.0); NEUTROPHILS # (AUTO) 8.4 /CMM (1.8-8.9); NEUTROPHILS % (AUTO) 73.4 % (43.0-81.0); PLATELET COUNT (AUTO) 353 /CMM (150-450); RDW COEFFICIENT OF VARIATION 17.4 (11.5-15.0); RED BLOOD CELL COUNT(AUTO) 4.44 MIL/uL (4.5-6.0); WHITE BLOOD COUNT (AUTO) 11.5 K/uL (4.3-11.0)
[2017-12-02 07:19] LABS: MAGNESIUM 2.1 mg/dL (1.8-2.4); PHOSPHORUS 3.4 mg/dL (2.5-4.9); POTASSIUM 3.8 mmol/L (3.5-5.1)
[2017-12-02 07:56] VITALS: BP 154/77
[2017-12-02 08:23] VITALS: BP 154/77
[2017-12-02] MEDS: ASPIRIN 81 MG TAB.CHEW PO SCH (08:23)
[2017-12-02] MEDS: CARVEDILOL 6.25 MG TABLET PO SCH (08:23)
[2017-12-02] MEDS: FLUCONAZOLE (100 MG) 100 MG TABLET PO SCH (08:23)
[2017-12-02] MEDS: FUROSEMIDE 40 MG TABLET PO SCH (08:23)
[2017-12-02] MEDS: NYSTATIN (PYXIS) 500,000 UNIT/5 ML ORAL.SUSP PO SCH ×2 (08:23→12:33)
[2017-12-02] MEDS: MUPIROCIN OINT 2% 22 GM TUBE SCH (08:24)
[2017-12-02] MEDS: TICAGRELOR 90 MG TABLET PO SCH (08:24)
[2017-12-02] MEDS ORDERED: NYST5ORA PO (10:58)
[2017-12-02] MEDS ORDERED: MUPI22OI7 (10:58)
[2017-12-02] MEDS ORDERED: LEVO250T2 PO (10:58)
[2017-12-02] MEDS ORDERED: TICA90TA PO (10:58)
== END 2017-12-02 13:25 | disposition home health service (06) | DRG 720 ==
LOC: ER 16:08 → TELE 20:07 → MED 12-01 09:05
PROVIDERS: ADMIT Nurse Practitioner Acute Care; ATTEND Nurse Practitioner Acute Care
DX: A41.9 Sepsis, unspecified organism (principal); I21.4 Non-ST elevation (NSTEMI) myocardial infarction; I50.23 Acute on chronic systolic (congestive) heart failure; L89.159 Pressure ulcer of sacral region, unspecified stage; L89.319 Pressure ulcer of right buttock, unspecified stage; E87.2 Acidosis; I11.0 Hypertensive heart disease with heart failure; I42.9 Cardiomyopathy, unspecified; L89.329 Pressure ulcer of left buttock, unspecified stage; E87.1 Hypo-osmolality and hyponatremia; N39.0 Urinary tract infection, site not specified; G35 Multiple sclerosis; Z74.01 Bed confinement status; Z98.61 Coronary angioplasty status; Z79.899 Other long term (current) drug therapy; Z79.82 Long term (current) use of aspirin; Z98.890 Other specified postprocedural states; F17.200 Nicotine dependence, unspecified, uncomplicated; E78.5 Hyperlipidemia, unspecified; B96.1 Klebsiella pneumoniae [K. pneumoniae] as the cause of diseases classified elsewhere; I25.10 Atherosclerotic heart disease of native coronary artery without angina pectoris; E87.6 Hypokalemia; E11.9 Type 2 diabetes mellitus without complications
CPT/HCPCS: 36415; 71045-TC; 80048-TC; 80053-TC; 80061-TC; 80076-TC; 81000-TC; 83605-TC; 83735-TC; 83880; 84100-TC; 84443-TC; 84484-TC; 85025-TC; 85730-TC; 87040-TC; 87081-TC; 87086-TC; 87186-TC; 93307-TC; A4216; A4606; J1650; J1940; J2270; J2543; J7050; J7060; Z7610

== ENCOUNTER 2017-12-20 18:26 | Inpatient (IN) | payer OTHER ==
[~2017-12-20] VITALS: Ht 170.2 cm; Wt 66.2 kg
[~2017-12-20 18:26] MED LIST changes: -ACET-868 PO; +ASPI-1169 PO; -ASPI-992 PO; +ATOR40TA PO; -HYDR-552 PO; +LEVO250T2 PO; +MUPI22OI7; +NYST5ORA PO; -POTA20TA83 PO; +TICA90TA PO
--- NOTE | 2017-12-20 18:54 | NUR ---
pt rec'd to er via ems pt lives at home with mother has had sos few days ra sats 94$% o2 n/s 2l 100% pt has ms has been here few times uti 's . ua sent to lab pt has cath . mother at bedside . iv left hand 18g labs and ua sent to lab no fever at this time AWAITING EVALUATION BY ER PROVIDER.
[2017-12-20 19:00] LABS: APPEARANCE,URINE Cloudy (CLEAR); BILIRUBIN,URINE Negative (NEGATIVE); BLOOD, URINE Large Ery/uL (NEGATIVE); COLOR,URINE Yellow (YELLOW); KETONES,URINE Negative (NEGATIVE); LEUKOCYTE ESTERASE ,URINE Large (NEGATIVE); NITRITE, URINE Positive (NEGATIVE); PROTEIN,URINE 100 mg/dl (NEGATIVE); UGLUCOSE Negative (NEGATIVE)
[2017-12-20 19:04] LABS: BASOPHILS # (AUTO) 0.1 /CMM (0.0-0.2); BASOPHILS % (AUTO) 0.6 % (0.0-2.0); EOSINOPHILS % (AUTO) 9.8 % (0.0-6.0); HEMATOCRIT 41 % (39-51); HEMOGLOBIN 13.6 g/dL (13.5-17.5); LYMPHOCYTES # (AUTO) 2.6 /CMM (0.8-4.8); LYMPHOCYTES % (AUTO) 26.8 % (20.0-44.0); MEAN CORPUSCULAR HGB CONC 33 g/dl (31.0-36.0); MEAN CORPUSCULAR VOLUME 82 fL (80-96); MONOCYTES # (AUTO) 0.5 /CMM (0.1-1.30); NEUTROPHILS # (AUTO) 5.6 /CMM (1.8-8.9); NEUTROPHILS % (AUTO) 57.8 % (43.0-81.0); PLATELET COUNT (AUTO) 438 /CMM (150-450); RED BLOOD CELL COUNT(AUTO) 5.04 MIL/uL (4.5-6.0); WHITE BLOOD COUNT (AUTO) 9.7 K/uL (4.3-11.0)
[2017-12-20 19:10] LABS: CALCIUM, SERUM 9.3 mg/dL (8.5-10.1); CREATININE 1.1 mg/dL (0.6-1.3); POTASSIUM 3.8 mmol/L (3.5-5.1)
--- NOTE | 2017-12-20 19:13 | NUR ---
REPORT RECEIVED FROM JERSEY ELKINS FOR ALFREDO.
[2017-12-20 19:17] LABS: TROPONIN I 0.169 ng/mL (0.00-0.056)
[2017-12-20 19:19] LABS: INR 0.96 (0.85-1.15)
[2017-12-20 19:22] LABS: ALBUMIN 3.1 g/dL (3.4-5.0); BILIRUBIN,DIRECT 0.2 mg/dL (0.0-0.2); BILIRUBIN,TOTAL 0.5 mg/dL (0.2-1.0); TOTAL PROTEIN, SERUM 7.4 g/dL (6.4-8.2)
[2017-12-20 19:27] LABS: RBC,URINE 21-50 /HPF (0-2); WBC,URINE TOO NUMEROUS TO COUN /HPF (0-3)
[2017-12-20 19:29] LABS: BACTERIA,URINE 3+ /HPF (None Seen); SQUAMOUS EPITHELIAL CELL,UR Few /HPF (None Seen)
--- NOTE | 2017-12-20 19:45 | NUR ---
CALLED NURSING SUP. FOR TELE BED
--- NOTE | 2017-12-20 20:19 | NUR ---
ENDORSED TO JERSEY DALE FOR ALFREDO IN [place].
--- NOTE | 2017-12-20 20:30 | NUR ---
TELE/CRITICAL CARE NURSE SPECIALIST NOTES: RECEIVED PT. IN [facility] W/ RN CARLA AND ELIZABET. TRANSPORTED PT. TO BED. A/O X 4. O2 @ 2LPM VIA N/C SAT. 94 %. PT. HAS SL ON LH G 20 PATENT AND INTACT W/ NO S/S OF INFECTION/INFILTRATION NOTED. HAS SACRAL REDNESS. HAS SEVERE WEAKNESS DUE TO MULTIPLE SCLEROSIS. HAS A F/C PATENT AND INTACT DRAINING VIA GRAVITY W/ BRENDEN, CLOUDY AND W/ SEDIMENTS URINE. STARTED IVF PER ORDER OF NS @ 75 ML/HS. ALL DUE MEDS GIVEN PER ORDER. ON TELE MONITOR W/ SR @ 92 W/ PVC AND HAS A PACEMAKER ON LEFT CHEST WALL. CALL LIGHT W/ REACH. ALL NEEDS MEET. WILL CONTINUE TO MONITOR.
--- NOTE | 2017-12-20 20:36 | NUR ---
16 FR F/C INSERTED USING BROADCAST OPERATIONS ENGINEER, NO URINE RETURN NOTED.
[2017-12-20 20:42] VITALS: BP 125/80
[2017-12-20] MEDS ORDERED: IV NS 0.9% 1,000 ML IV PRN (20:45)
--- NOTE | 2017-12-20 20:48 | NUR ---
PT TRANSPORTED VIA STRETCHER TO TELE 110 ON SOFTWARE TESTING SPECIALIST WITH RN PER ACLS PROTOCOL. VSS.
[2017-12-20] MEDS ORDERED: HYDROMORPHONE INJ 2 MG/ML DISP.SYRIN IV PRN (21:00)
[2017-12-20] MEDS ORDERED: MAGNESIUM HYDROXIDE 30 ML UDC PO PRN (21:00)
[2017-12-20] MEDS ORDERED: ONDANSETRON HCL/PF 4 MG/2 ML VIAL IVP PRN (21:00)
[2017-12-20] MEDS ORDERED: Z GUARD REMEDY 2 OZ OINT TP PRN (21:00)
[2017-12-20] MEDS ORDERED: MORPHINE SULFATE INJ 2 MG/ML DISP.SYRIN IV PRN (21:00)
[2017-12-20] MEDS ORDERED: MAG HYDROX/AL HYDROX/SIMETH 30 ML UDC PO PRN (21:00)
[2017-12-20] MEDS ORDERED: HYDROCODONE/APAP 5/325MG 1 EACH TABLET PO PRN (21:00)
[2017-12-20] MEDS: ATORVASTATIN 40 MG TABLET PO SCH (22:01)
[2017-12-20] MEDS: CARVEDILOL 6.25 MG TABLET PO SCH (22:01)
[2017-12-20] MEDS: ZOLPIDEM TARTRATE 5 MG TABLET PO PRN (22:04)
[2017-12-21] VITALS: BP_SYST 101; BP_SYST 93; BP_DIAS 66; BP_DIAS 69
[2017-12-21 04:00] VITALS: BP 115/61
[2017-12-21 06:29] LABS: BASOPHILS # (AUTO) 0.1 /CMM (0.0-0.2); BASOPHILS % (AUTO) 0.7 % (0.0-2.0); EOSINOPHILS % (AUTO) 9.6 % (0.0-6.0); HEMATOCRIT 35 % (39-51); HEMOGLOBIN 11.7 g/dL (13.5-17.5); LYMPHOCYTES # (AUTO) 2.2 /CMM (0.8-4.8); LYMPHOCYTES % (AUTO) 26.4 % (20.0-44.0); MEAN CORPUSCULAR HGB CONC 33 g/dl (31.0-36.0); MEAN CORPUSCULAR VOLUME 82 fL (80-96); MONOCYTES # (AUTO) 0.3 /CMM (0.1-1.30); MONOCYTES % (AUTO) 3.9 % (2.0-12.0); NEUTROPHILS # (AUTO) 4.9 /CMM (1.8-8.9); NEUTROPHILS % (AUTO) 59.4 % (43.0-81.0); PLATELET COUNT (AUTO) 323 /CMM (150-450); RDW COEFFICIENT OF VARIATION 17.7 (11.5-15.0); RED BLOOD CELL COUNT(AUTO) 4.27 MIL/uL (4.5-6.0); WHITE BLOOD COUNT (AUTO) 8.3 K/uL (4.3-11.0)
[2017-12-21 06:49] LABS: CALCIUM, SERUM 8.3 mg/dL (8.5-10.1); PHOSPHORUS 4.1 mg/dL (2.5-4.9); POTASSIUM 3.6 mmol/L (3.5-5.1)
[2017-12-21] MEDS ORDERED: FENTANYL PF 100MCG/2ML AMPUL IV PRN (07:00)
[2017-12-21] MEDS ORDERED: HYDROMORPHONE INJ 2 MG/ML DISP.SYRIN IV PRN (07:00)
--- NOTE | 2017-12-21 07:10 | NUR ---
RN INITIAL NOTES: REC'D PT AWAKE ON BED, NOT IN ANY DISTRESS, A/O X 4, DENIES ANY PAIN & DISCOMFORT. ON NC AT 2LPM, NO SOB. ON TELEMONITOR, SR W/ BBB HR 83 BPM. HAS L HAND G18, PL, W/ NS X 75 CC/HR INFUSING WELL. HAS FC PATENT & INTACT. PROVIDED COMFORT & SAFETY MEASURES. BED KEPT LOW & IN LOCKED POS. CALL LIGHT PLACED W/IN REACH. WILL CONTINUE TO MONITOR & ATTEND PT NEEDS.
[2017-12-21 08:00] VITALS: BP 91/61
[2017-12-21] MEDS: ASPIRIN 81 MG TAB.CHEW PO SCH (08:27)
[2017-12-21] MEDS: TICAGRELOR 90 MG TABLET PO SCH ×2 (08:27→17:24)
[2017-12-21] MEDS: CEFTRIAXONE 1 G in IV D5W 50 ML IV SCH (08:27)
[2017-12-21] MEDS: CARVEDILOL 6.25 MG TABLET PO SCH ×2 (08:28→21:21)
[2017-12-21] MEDS: FUROSEMIDE 20 MG/2 ML VIAL IV SCH (08:28)
[2017-12-21 08:30] LABS: THYROID STIMULATING HORMONE 4.06 uIU/mL (0.358-3.74)
[2017-12-21] MEDS ORDERED: FUROSEMIDE 40 MG TABLET PO SCH (09:00)
--- NOTE | 2017-12-21 10:00 | NUR ---
RN NOTES: PT SEEN & EXAMINED BY ASHLEY EDUARDO W/ ORDERS MADE & CARRIED OUT.
--- NOTE | 2017-12-21 10:38 | NUR ---
RN NOTES: PT'S MOTHER WAS ABLE TO SPEAK W/ ALESHA, DURALUMIN METALWORKER. CONCERN & QUESTION ADDRESSED. DURALUMIN METALWORKER MADE AWARE THAT PER PT'S MOM, HIS WELLNESS TRAINER IS DR. WOLF.
[2017-12-21 12:00] VITALS: BP 96/56
--- NOTE | 2017-12-21 12:00 | NUR ---
RN NOTES: REPORT GIVEN TO DORIE PUTNAM FOR ALFREDO.
--- NOTE | 2017-12-21 12:05 | NUR ---
RN NOTE RECEIVED REPORT FROM BRIDGER. RECEIVED PATENT ALERT AND ORIENTED X4, HE IS BALE TO MAKE THINGS KNOWN AND VERBALIZE NEEDS. BREATHING UNLABORED WITH NO DISTRESS NOTED. ON CONTINUOUS O2 2L VIA NC. 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 F/C INTACT AND PATENT WITH ADEQUATE FLOW OF URINE. LEFT HAND IV SITE IN TACT AND PATENT. BED LOCKED AND LOW POSITION. WILL CONTINUE TO MONITOR CONTINUITY OF CARE.
[2017-12-21 16:00] VITALS: BP 95/62
--- NOTE | 2017-12-21 19:28 | NUR ---
RN NOTE PATIENT REMAINED STABLE THROUGHOUT SHIFT. NO ACUTE CHANGES OR DISTRESS NOTED. WILL ENDORSE TO NEXT SHIFT TO CONTINUE TO MONITOR CONTINUITY OF CARE.
--- NOTE | 2017-12-21 19:30 | NUR ---
NUTRITION AIDES TEACHER NOTES, RECEIVED PATIENT IN BED AWAKE, ALERT AND ORIENTED ABLE TO COMMUNICATE NEEDS, NO SOB OR ACUTE DISTRESS NOTED, NO C/O PAIN OR DISCOMFORT AT THIS TIME, S/L IN RIGHT HAND INTACT AND PATENT, NO IVF RUNNING AT THIS TIME, BED IN LOCKED AND LOWEST POSITION, REPOSITION PROVIDED, NOTED DRY AND CLEN, CALL LIGHT W/I REACH, WILL CONTINUE TO MONITOR CLOSELY.
[2017-12-21 20:00] VITALS: BP_SYST 100; BP_SYST 97; BP_DIAS 67; BP_DIAS 71
[2017-12-21] MEDS: ATORVASTATIN 40 MG TABLET PO SCH (21:20)
[2017-12-22] VITALS: BP 97/71
[2017-12-22 04:00] VITALS: BP 99/67
[2017-12-22 06:30] LABS: BASOPHILS # (AUTO) 0.1 /CMM (0.0-0.2); BASOPHILS % (AUTO) 0.8 % (0.0-2.0); EOSINOPHILS % (AUTO) 9.5 % (0.0-6.0); HEMATOCRIT 38 % (39-51); HEMOGLOBIN 12.5 g/dL (13.5-17.5); LYMPHOCYTES # (AUTO) 1.9 /CMM (0.8-4.8); LYMPHOCYTES % (AUTO) 19.8 % (20.0-44.0); MEAN CORPUSCULAR HGB CONC 33 g/dl (31.0-36.0); MEAN CORPUSCULAR VOLUME 83 fL (80-96); MONOCYTES # (AUTO) 0.4 /CMM (0.1-1.30); MONOCYTES % (AUTO) 3.9 % (2.0-12.0); NEUTROPHILS # (AUTO) 6.4 /CMM (1.8-8.9); PLATELET COUNT (AUTO) 341 /CMM (150-450); RDW COEFFICIENT OF VARIATION 17.4 (11.5-15.0); RED BLOOD CELL COUNT(AUTO) 4.52 MIL/uL (4.5-6.0); WHITE BLOOD COUNT (AUTO) 9.7 K/uL (4.3-11.0)
--- NOTE | 2017-12-22 06:40 | NUR ---
CHEMIST INORGANIC NOTES, PATIENT IN BED AWAKE, ALERT AND ORIENTED ABLE TO COMMUNICATE NEEDS, NO SOB OR ACUTE DISTRESS NOTED, NO C/O PAIN OR DISCOMFORT AT THIS TIME, NO SIGNIFICANT CHANGE OF CONDITION THROUGHOUT THE SHIFT, S/L IN RIGHT HAND INTACT AND PATENT, NO IVF RUNNING AT THIS TIME, BED IN LOCKED AND LOWEST POSITION, REPOSITION PROVIDED, DRY AND CLEAN, CALL LIGHT W/I REACH, WILL ENDORSE CONTINUITY OF CARE TO ONCOMING NURSE.
[2017-12-22 06:51] LABS: CALCIUM, SERUM 8.7 mg/dL (8.5-10.1)
--- NOTE | 2017-12-22 07:35 | NUR ---
RN NOTE RECEIVED PATENT ALERT AND ORIENTED X4, HE IS BALE TO MAKE THINGS KNOWN AND VERBALIZE NEEDS. BREATHING UNLABORED WITH NO DISTRESS NOTED. ON CONTINUOUS O2 2L VIA NC. 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 F/C INTACT AND PATENT WITH ADEQUATE FLOW OF URINE. LEFT HAND IV SITE IN TACT AND PATENT. BED LOCKED AND LOW POSITION. ALL SAFETY MEASURES PROVIDED. WILL CONTINUE TO MONITOR CONTINUITY OF CARE.
[2017-12-22] MEDS: CEFTRIAXONE 1 G in IV D5W 50 ML IV SCH (07:40)
[2017-12-22 08:00] VITALS: BP 103/68
[2017-12-22] MEDS: FUROSEMIDE 20 MG/2 ML VIAL IV SCH (08:38)
[2017-12-22] MEDS: ASPIRIN 81 MG TAB.CHEW PO SCH (08:38)
[2017-12-22] MEDS: TICAGRELOR 90 MG TABLET PO SCH ×2 (08:38→16:10)
[2017-12-22] MEDS: CARVEDILOL 6.25 MG TABLET PO SCH ×2 (09:00→21:00)
[2017-12-22 10:12] LABS: EOSINOPHILS % (MANUAL) 6 % (0-4); LYMPHOCYTES % (MANUAL) 12 % (16-48); MONOCYTES % (MANUAL) 2 % (0-11.0); NEUTROPHILS % (MANUAL) 80 (42-76)
[2017-12-22 12:00] VITALS: BP 106/56
[2017-12-22 16:00] VITALS: BP 101/74
--- NOTE | 2017-12-22 18:49 | NUR ---
RN NOTE PATIENT REMAINED STABLE THROUGHOUT SHIFT. NO ACUTE CHANGES OR DISTRESS NOTED. WILL ENDORSE TO NEXT SHIFT TO CONTINUE TO MONITOR CONTINUITY OF CARE.
--- NOTE | 2017-12-22 19:30 | NUR ---
MS PUTNAM OPENING NOTES: PATIENT IN BED, AOX4, ON O2 AT 2 LPM VIA NC, BREATHING EVEN AND UNLABORED, NO SOB NOTED, BREATH SOUNDS CLEAR TO AUSCULTATION. PATIENT HAS A NEUROSTIMULATOR IMPLANTED/ FELT OVER LEFT UPPER CHEST WALL, PER PATIENT IT WAS IMPLANTED 30 YRS AGO AND BATTERY HAS SINCE . NOTED BLE WEAKNESS. ARMS MILDLY WEAK. PIV OVER LEFT HAND G18 INTACT AND PATENT TO FLUSH. PROVIDED FOR COMFORT AND SAFETY. BED IN LOWEST AND LOCKED POSITION, SIDERAILS UP X 3, CALL LIGHT WITHIN REACH. WILL CONT TO MONITOR. Addendum: 12/22/17 at 2020 by LISSET YAN RN ADDITIONAL NOTES: PATIENT HAS VELIZ CATHETER IN PLACE DRAINING DARK YELLOW URINE.
[2017-12-22 20:00] VITALS: BP 104/68
[2017-12-22] MEDS: ATORVASTATIN 40 MG TABLET PO SCH (21:45)
[2017-12-23] VITALS: BP 108/68
--- NOTE | 2017-12-23 02:50 | NUR ---
RN NOTES: PATIENT INFORMED THAT HE WILL BE TRANSFERRED TO 3RD FLOOR MS, PATIENT AGREED. REPORT GIVEN TO JERSEY ANTHONY. PATIENT TRANSFERRED VIA GURNEY WITH ALL BELONGINGS, ACCOMPANIED BY ACE PUTNAM AND JERSEY ALVAREZ, IN STABLE CONDITION.
--- NOTE | 2017-12-23 03:00 | NUR ---
MS RN INITIAL NOTE PT TRANSFERRED FROM [place] IN STABLE CONDITION. NO SIGNS OF SOB OR DISTRESS, BREATHING EVENLY AND UNLABORED ON 2L NC. DENIES PAIN AT THIS TIME. F/C IS INTACT AND PATENT. IV ACCESS IS INTACT AND PATENT. CONTACT ISOLATION. BED IS IN LOW AND LOCKED POSITION, CALL LIGHT WITHIN REACH. WILL CONTINUE TO MONITOR PT
--- NOTE | 2017-12-23 06:53 | NUR ---
MS RN CLOSING NOTE PT IS IN BED RESTING. NO SIGNS OF SOB OR DISTRESS, BREATHING EVENLY AND UNLABORED. DENIES PAIN AT THIS TIME. IV ACCESS IS INTACT AND PATENT. VELIZ CATHETER IS INTACT AND DRAINING. ALL NEEDS WERE ANTICIPATED AND MET. BED IS IN LOW AND LOCKED POSITION, CALL LIGHT WITHIN REACH. WILL ENDORSE TO DAYSHIFT.
[2017-12-23 07:55] VITALS: BP 101/67
--- NOTE | 2017-12-23 08:00 | NUR ---
ms rn received on bed,awake,alert,oriented x4,not in any form of distress, respirations even and unlabored,no sob noted.lungs have ronchi bilaterally,abdomen soft,positive bowel sounds,denies pain at this time,will monitor patient.
[2017-12-23 09:00] VITALS: BP 101/67
--- NOTE | 2017-12-23 09:00 | NUR ---
ms metzger breakfast served,due meds given,tolerated well.
[2017-12-23] MEDS: ASPIRIN 81 MG TAB.CHEW PO SCH (10:11)
[2017-12-23] MEDS: CEFTRIAXONE 1 G in IV D5W 50 ML IV SCH (10:11)
[2017-12-23] MEDS: FUROSEMIDE 20 MG/2 ML VIAL IV SCH (10:11)
[2017-12-23] MEDS: TICAGRELOR 90 MG TABLET PO SCH ×2 (10:12→18:35)
[2017-12-23] MEDS: CARVEDILOL 6.25 MG TABLET PO SCH ×2 (10:13→21:00)
--- NOTE | 2017-12-23 11:00 | NUR ---
MS RN WAS SEEN BY Lorenza FLORES/ ORDERS MADE AND CARRIED OUT.
[2017-12-23] MEDS: SULFAMETH/TRIMETH 800/160 MG 1 UDTAB TABLET PO SCH ×2 (13:32→21:49)
[2017-12-23 16:00] VITALS: BP 104/73
--- NOTE | 2017-12-23 16:36 | NUR ---
MS RN ON BED, W/ FAMILY,NO DISTRESS NOTED.
--- NOTE | 2017-12-23 19:20 | NUR ---
RN OPENING NOTES RECEIVED PATIENT IN BED, ALERT AND ORIENTED X 4, IN NO ACUTE DISTRESS, NO SOB NOTED, BREATHING EVEN AND UNLABORED, CONTINUES TO RECEIVE 02 VIA NC @ 2LPM. NO C/O PAIN, ALL PATIENT'S NEEDS ATTENDED TO. PLACED BED IN LOW POSITION AND LOCKED IN PLACE. CALL LIGHT IN EASY REACH. WILL CONTINUE TO MONITOR PT.
[2017-12-23 20:00] VITALS: BP 93/59
[2017-12-23] MEDS: ATORVASTATIN 40 MG TABLET PO SCH (21:49)
--- NOTE | 2017-12-24 06:20 | NUR ---
RN CLOSING NOTES PATIENT IN BED, EASILY AROUSABLE, NOTED WITH NO SOB, CONTINUES TO RECEIVE O2 VIA NC @2LPM, IN NO ACUTE DISTRESS AND WITH NO SOB. PT WITH VELIZ CATHETER, DRAINING WELL WITH YELLOW URINE. PATIENT'S NEEDS ATTENDED TO THROUGHOUT THE SHIFT, CALL LIGHT PLACED IN EASY REACH. PLACED BED IN LOW POSITION AND LOCKED IN PLACE. WILL ENDORSE TO AM SHIFT NURSE FOR CONTINUITY OF CARE.
--- NOTE | 2017-12-24 07:10 | NUR ---
RN NOTES PATIENT IN BED, A/OX4, NO DISTRESS NOTED, F/C IN PLACED AND DRAINING CLEAR YELLOW URINE, NEEDS ATTENDED, CALL LIGHT WITHIN REACH, WILL CONTINUE TO MONITOR.
[2017-12-24 08:00] VITALS: BP 101/52
[2017-12-24] MEDS: FUROSEMIDE 20 MG/2 ML VIAL IV SCH (08:34)
[2017-12-24] MEDS: ASPIRIN 81 MG TAB.CHEW PO SCH (08:34)
[2017-12-24] MEDS: SULFAMETH/TRIMETH 800/160 MG 1 UDTAB TABLET PO SCH ×2 (08:34→20:56)
[2017-12-24] MEDS: CEFTRIAXONE 1 G in IV D5W 50 ML IV SCH (08:34)
[2017-12-24] MEDS: TICAGRELOR 90 MG TABLET PO SCH ×2 (08:35→16:42)
[2017-12-24] MEDS: CARVEDILOL 6.25 MG TABLET PO SCH ×2 (08:40→20:51)
[2017-12-24 16:00] VITALS: BP 101/67
--- NOTE | 2017-12-24 19:27 | NUR ---
RN NOTES PATIENT A/OX4, WEANED OFF OXYGEN, ABLE TO TOLERATE ROOM AIR WITH SPO2 FROM 94-100%, NO SOB NOTED, F/C PATENT AND DRAINING WITH CLEAR BRENDEN URINE, PATIENT AFEBRILE, NO S/SX OF INFECTION NOTED, NEEDS ATTENDED AND MET, TURNED AND REPOSITIONED EVERY 2 HOURS, SKIN CARE RENDERED, CALL LIGHT WITHIN REACH, WILL ENDORSE TO CORPORATE AUDITOR FOR ALFREDO.
[2017-12-24 20:00] VITALS: BP 97/66
--- NOTE | 2017-12-24 20:00 | NUR ---
MS/RN OPENING NOTES PATIENT IN BED, HOB ELEVATED, RESTING COMFORTABLY IN BED, ABLE TO VERBALIZE NEEDS, HAD A VISIT FROM FAMILY MEMBER, NO PAIN VERBALIZED OR OBSERVED, COOPERATIVE TO CARE. OXYGEN AT 2L FOR COMFORT. IV ON LEFT HAND PATENT W/ NO S/S OF INFILTRATION, B/P LOW, PROVIDE SOME SIP OF WATER, ABLE TO SWALLOW MEDICATION FOR CHOLESTERIL AND FOR INFECTION. VELIZ CATHETER DRAINING URINE. BED IN LOCK POSITION, CALL LIGHTS WITHIN REACH, PATIENT WATCHING TV.
[2017-12-24 20:29] VITALS: BP 97/66
[2017-12-24] MEDS: ATORVASTATIN 40 MG TABLET PO SCH (20:56)
[2017-12-24] MEDS: ACETAMINOPHEN 325 MG TABLET PO PRN (23:24)
--- NOTE | 2017-12-25 06:42 | NUR ---
MS/RN CLOSING NOTES PATIETN IN BED ABLE TO SLEEP DURING THE NIGHTS, SKIN WARM TO TOUCH ON M RESTING COMFORTABLY IN BED, KEPT COMFORTABLE, SKIN OBSERVE TREATMENT PROVIDED ORDERED. CALL LIGHTS WITHIN REACH, BED IN LOCK POSITION. WILL CONTINUE TO MONITOR AND ENDORSE TO AM RN FOR ALFREDO.
[2017-12-25 06:44] LABS: BASOPHILS # (AUTO) 0.1 /CMM (0.0-0.2); EOSINOPHILS % (AUTO) 13.9 % (0.0-6.0); HEMATOCRIT 36 % (39-51); HEMOGLOBIN 11.9 g/dL (13.5-17.5); LYMPHOCYTES # (AUTO) 1.9 /CMM (0.8-4.8); MEAN CORPUSCULAR HGB CONC 33 g/dl (31.0-36.0); MEAN CORPUSCULAR VOLUME 83 fL (80-96); MONOCYTES # (AUTO) 0.4 /CMM (0.1-1.30); MONOCYTES % (AUTO) 5.1 % (2.0-12.0); NEUTROPHILS # (AUTO) 5.2 /CMM (1.8-8.9); PLATELET COUNT (AUTO) 306 /CMM (150-450); RDW COEFFICIENT OF VARIATION 16.9 (11.5-15.0); RED BLOOD CELL COUNT(AUTO) 4.37 MIL/uL (4.5-6.0); WHITE BLOOD COUNT (AUTO) 8.8 K/uL (4.3-11.0)
[2017-12-25 07:08] LABS: CALCIUM, SERUM 8.8 mg/dL (8.5-10.1); CREATININE 1.2 mg/dL (0.6-1.3); MAGNESIUM 1.9 mg/dL (1.8-2.4); POTASSIUM 3.8 mmol/L (3.5-5.1)
--- NOTE | 2017-12-25 07:10 | NUR ---
RN NOTES: PATIENT RESTING IN BED. NONLABORED BREATHING NOTED ON 2 L NASAL CANNULA. IV SITE ON LEFT HAND GAUGE 18 PATENT AND INTACT. PATIENT DENYING CHEST PAIN AND DENYING PAIN. BED IN LOWEST LOCKED POSITION. CALL LIGHT WITHIN REACH. WILL CONTINUE TO MONITOR
[2017-12-25 08:00] VITALS: BP 103/69
[2017-12-25] MEDS: CEFTRIAXONE 1 G in IV D5W 50 ML IV SCH (08:30)
[2017-12-25] MEDS: CARVEDILOL 6.25 MG TABLET PO SCH ×2 (10:00→21:00)
--- NOTE | 2017-12-25 10:09 | NUR ---
SURGERY PLAN FOR FRIDAY CONFIRMED WITH CADY FROM OR THAT PATIENT WILL BE GOING TO SURGERY WITH DR GEORGE ON FRIDAY
--- NOTE | 2017-12-25 10:29 | NUR ---
WOUND CARE CONSULT WOUND CARE RECEIVED CONSULT FOR OPEN WOUND. WOUND CARE WILL DEFER CONSULT AND TREATMENT PLAN TO SURGICAL TEAM WHO ARE CURRENTLY FOLLOWING.
[2017-12-25] MEDS: TICAGRELOR 90 MG TABLET PO SCH ×2 (12:00→17:11)
[2017-12-25] MEDS: ASPIRIN 81 MG TAB.CHEW PO SCH (12:00)
--- NOTE | 2017-12-25 12:27 | NUR ---
PATIENT REFUSING MEDICATIONS. BENEFITS AND RISKS EXPLAINED TO PATIENT MULTIPLE TIMES. OFFERED X4. STILL REFUSING
[2017-12-25] MEDS: SULFAMETH/TRIMETH 800/160 MG 1 UDTAB TABLET PO SCH ×2 (13:08→22:26)
[2017-12-25] MEDS: FUROSEMIDE 20 MG/2 ML VIAL IV SCH (13:09)
--- NOTE | 2017-12-25 13:15 | NUR ---
PATIENT AGREED TO RECEIVE LASIX AND BACTRIM
[2017-12-25 13:16] VITALS: BP 101/74
[2017-12-25 16:00] VITALS: BP 102/77
--- NOTE | 2017-12-25 17:39 | NUR ---
CONSENT FOR SURGERY MARK HAMILTON NP, AWARE THAT FAMILY AND PATIENT ARE NOT CONSENTING TO ICD PLACEMENT YET. FAMILY WOULD LIKE TO SPEAK TO DR GEORGE REGARDING RISKS AND BENEFITS. PER PATIENT AND PATIENT'S MOTHER, OK FOR DR GEORGE TO CONTACT PATIENT'S BROTHER ROSALINDA NIEVES AND SISTER IN LAW CHIDI NIEVES. CONTACTED AVAILABLE PHONE NUMBER FOR DR GEORGE AND LEFT A VOICEMAIL
--- NOTE | 2017-12-25 19:20 | NUR ---
RN CLOSING NOTES: PATIENT RESTING IN BED. NONLABORED BREATHING NOTED ON 2 L NASAL CANNULA. DENYING PAIN AT THE MOMENT. PATIENT STABLE THROUGHOUT SHIFT. DENIED CHEST PAIN. ALFONSO SHUTTLE OPERATOR AWARE THAT PATIENT HAS NOT CONSENTED TO ICD PLACEMENT. ALSO AWARE THAT PATIENT REFUSED MORNING MEDS. VELIZ CATHETER DRAINING BRENDEN CLEAR URINE. SAFETY AND CONTACT ISOLATION PRECAUTIONS IMPLEMENTED. IV SITE ON LEFT HAND PATENT AND INTACT GAUGE 18. PATIENT REFUSED TO BE TURNED AND REPOSITIONED DURING SHIFT. EDUCATED ABOUT WOUND DEVELOPMENT ON SACRUM, STILL REFUSING. WOUND CARE DONE. NO DISCHARGE OR BLOOD NOTED. PATIENT AFEBRILE DURING SHIFT. BP STABLE. ENDORSED TO ALLEGRA PUTNAM
--- NOTE | 2017-12-25 19:26 | NUR ---
MS/RN OPENING NOTES PATIENT IN BED, WITH FAMILY MEMBER FOR A VISIT, RESTING COMFORTABLY IN BED, ALERT, ORIENTED, HAD DINNER 70% EATEN, RESPIRATIONS EVEN AND UNLABORED SKIN WARM TO TOUCH, RECEIVED ENDORSEMENT FROM AM RN FOR ALFREDO, CALL LIGHTS WITHIN REACH, BED IN LOCK POSITION. WILL CONTINUE TO MONITOR.
[2017-12-25 20:00] VITALS: BP 101/69
[2017-12-25] MEDS: ATORVASTATIN 40 MG TABLET PO SCH (22:26)
[2017-12-25] MEDS: ZOLPIDEM TARTRATE 5 MG TABLET PO PRN (22:26)
--- NOTE | 2017-12-25 22:26 | NUR ---
ms/rn notes PATIENT REPORTED UNABLE TO SLEEP REQUESTED TO HAVE MEDICATION FOR SLEEP, AMBIEN PO 5MG. WILL MONITOR EFFECTIVENESS.
[2017-12-26] MEDS: ACETAMINOPHEN 325 MG TABLET PO PRN (03:46)
--- NOTE | 2017-12-26 06:12 | NUR ---
319 MS/RN NOTES PATIENT IN BED,ABLE TO SLEEP DURING THE NIGHT , REQUESTED AMBIEN 5MG PO, ABLE TO VERBALIZE NEEDS, COOPERTAIVE TO CARE AND ON OXYGEN VIA 2 L, RESPIRATIONS EVEN AND UNLABORED, SKIN WARM TO TOUCH, TURNED FOR COMFORT, VELIZ DRAINING URINE YELLOW COLOR, NEEDED PAIN MEDICATION, TYLENOL REQUESTED , SACRAL AREA, TREATED AMD APPLIED ZGUARD, OPEN WOUND WITH MEPILEX, OV SITE ON LEFT HAND W/NO S/S OF INFILTRATION, WILL ENDORSE TO AM RN FOR ALFREDO.
--- NOTE | 2017-12-26 06:31 | NUR ---
REFUSED BLOOD DRAW IN AM, INFORMED THE RISK AND BENEFIT, VERBALIZED UNDERSTANDING.
--- NOTE | 2017-12-26 07:20 | NUR ---
RN OPENING NOTES RECEIVED PT. IN BED A&OX4. BREATHING UNLABORED, AND EVENLY ON ROOM AIR. PT. DENIES PAIN. NO S/S OF ACUTE DISTRESS. BED IS IN LOWEST, AND LOCKED POSITION. 2 SIDE RAILS UP, AND INSTRUCTED PT. TO USE CALL LIGHT FOR ASSISTANCE. ALL NEEDS MET. WILL CONTINUE TO ASSESS AND MONITOR.
[2017-12-26 08:00] VITALS: BP 113/75
[2017-12-26] MEDS: CEFTRIAXONE 1 G in IV D5W 50 ML IV SCH ×2 (08:00→14:00)
--- NOTE | 2017-12-26 08:03 | NUR ---
RN NOTES PT. REFUSED ROCEPHIN IV ANTIBIOTICS. PT. WAS EXPLAINED THE REASON FOR IV ANTIBIOTICS, THE BENEFITS IF ANTIBIOTICS BEING GIVEN, AND EXPLAINED PT. NEED OF ANTIBIOTICS BEFORE ICD PROCEDURE. PT. SAID THAT HE WILL NOT HAVE SURGERY, AND DOES NOT WANT TO BE GIVEN IV ANTIBIOTICS.
[2017-12-26] MEDS: TICAGRELOR 90 MG TABLET PO SCH ×3 (09:00→17:37)
[2017-12-26] MEDS: ASPIRIN 81 MG TAB.CHEW PO SCH ×2 (09:00→11:20)
[2017-12-26] MEDS: SULFAMETH/TRIMETH 800/160 MG 1 UDTAB TABLET PO SCH ×2 (09:00→11:20)
[2017-12-26] MEDS: FUROSEMIDE 20 MG/2 ML VIAL IV SCH ×2 (09:00→11:25)
[2017-12-26] MEDS: CARVEDILOL 6.25 MG TABLET PO SCH ×3 (09:00→21:40)
--- NOTE | 2017-12-26 09:39 | NUR ---
RN NOTES PT. REFUSED 0900 MEDICATIONS, ASPIRIN, LASIX, BACTRIM, BRILINTA AND COREG. PT. WAS EXPLAINED ,THE BENEFITS AND REASON FOR TAKING HIS MEDICATIONS, PT. VERBALIZED UNDERSTANDING AND STRONGLY REFUSED. PT. SAID THAT HE WANTS TO HO GO HOME. SPOKE WITH PT.'S MOTHER OVER THE PHONE AT BEDSIDE, AND PT.'S MOTHER, MARIA R REQUESTED THAT TO ASK DOCTOR IF PT. CAN GO HOME, EXPLAINED THAT I WOULD NEED TO FOLLOW UP WITH HER REQUEST.
--- NOTE | 2017-12-26 10:19 | NUR ---
RN NOTES NOTIFIED DOCTOR ABOUT PT. REFUSING ALL MEDICATIONS THIS MORNING, AND THAT PT.'S MOTHER WOULD LIKE TO GET HIS OPINION ON PT. GOING HOME WITHOUT PROCEDURE.
[2017-12-26 13:00] LABS: BASOPHILS # (AUTO) 0.1 /CMM (0.0-0.2); BASOPHILS % (AUTO) 0.7 % (0.0-2.0); EOSINOPHILS % (AUTO) 6.9 % (0.0-6.0); HEMATOCRIT 41 % (39-51); HEMOGLOBIN 13.5 g/dL (13.5-17.5); LYMPHOCYTES # (AUTO) 2.1 /CMM (0.8-4.8); LYMPHOCYTES % (AUTO) 21.1 % (20.0-44.0); MEAN CORPUSCULAR HGB CONC 33 g/dl (31.0-36.0); MEAN CORPUSCULAR VOLUME 82 fL (80-96); MONOCYTES # (AUTO) 0.4 /CMM (0.1-1.30); MONOCYTES % (AUTO) 4.1 % (2.0-12.0); NEUTROPHILS # (AUTO) 6.7 /CMM (1.8-8.9); NEUTROPHILS % (AUTO) 67.2 % (43.0-81.0); PLATELET COUNT (AUTO) 364 /CMM (150-450); RDW COEFFICIENT OF VARIATION 16.7 (11.5-15.0); RED BLOOD CELL COUNT(AUTO) 4.98 MIL/uL (4.5-6.0); WHITE BLOOD COUNT (AUTO) 9.9 K/uL (4.3-11.0)
[2017-12-26 13:11] LABS: CALCIUM, SERUM 9.5 mg/dL (8.5-10.1); CREATININE 1.4 mg/dL (0.6-1.3); PHOSPHORUS 3.7 mg/dL (2.5-4.9); POTASSIUM 4.5 mmol/L (3.5-5.1)
[2017-12-26 16:00] VITALS: BP 99/75
[2017-12-26] MEDS: BOOST PLUS FOOD-CHOCLATE 237 ML BOX PO SCH (17:36)
--- NOTE | 2017-12-26 19:32 | NUR ---
MS RN OPENING NOTES RECEIVED PT LAYING IN BED WITH HOB ELEVATED. AWAKE AND RESPONSIVE. RESPIRATIONS ARE EVEN AND UNLABORED, NOT IN ANY ACUTE DISTRESS NOTED. PT DENIES ANY PAIN, SOB, N/V. IV SITE INTACT, NO INFILTRATION NOTED. DRESSING KEPT CLEAN AND DRY. SAFETY MEASURES ARE IN PLACE. INSTRUCTED PT TO USE CALL LIGHT WHEN ASSISTANCE IS NEEDED, CALL LIGHT IS LEFT WITHIN REACH. WILL CONTINUE TO MONITOR THROUGHOUT SHIFT FOR CONTINUITY OF CARE.
--- NOTE | 2017-12-26 19:36 | NUR ---
RN CLOSING NOTES PT. IN BED A&OX4. BREATHING UNLABORED, AND EVENLY ON OXYGEN AT 3L/MIN VIA NASAL CANNULA. PT. DENIES PAIN. NO S/S OF ACUTE DISTRESS. PT. HAS VELIZ CATHETER. BED IS IN LOWEST, AND LOCKED POSITION. 2 SIDE RAILS UP, AND INSTRUCTED PT. TO USE CALL LIGHT FOR ASSISTANCE. ALL NEEDS MET. WILL ENDORSE REPORT TO NURSE.
[2017-12-26 20:00] VITALS: BP 108/74
--- NOTE | 2017-12-26 21:13 | NUR ---
MS RN NOTES PT REQUESTED MORPHINE TO SLEEP. CALLED DR. SHAFFER W/ NEW ORDERS FOR MS IR 15MG PO X1 NOW. NOTED AND CARRIED OUT.
[2017-12-26] MEDS ORDERED: MORPHINE SULFATE IR 15 MG TABLET PO ONE (21:30)
[2017-12-26] MEDS: VANCOMYCIN 0.75 GM in IV NS 0.9% 250 ML IV SCH (21:39)
[2017-12-26] MEDS: ATORVASTATIN 40 MG TABLET PO SCH (21:39)
--- NOTE | 2017-12-26 23:30 | NUR ---
MS RN NOTES REMOVED OLD VELIZ CATH AND INSERTED A NEW VELIZ CATH 16FR USING STERILE TECHNIQUE. PT TOLERATED PROCEDURE WELL. DENIES ANY BLADDER DISCOMFORT. BLADDER IS SOFT AND NONDISTENDED. WILL CONTINUE TO MONITOR.
--- NOTE | 2017-12-27 06:21 | NUR ---
MS RN CLOSING NOTE ALL DUE MEDS GIVEN, NEEDS MET AND RENDERED. AWAKE AND RESPONSIVE. RESPIRATIONS ARE EVEN AND UNLABORED, NOT IN ANY ACUTE DISTRESS NOTED. DENIES ANY PAIN, SOB AT THIS TIME. IV SITE INTACT, NO INFILTRATION NOTED. DRESSING KEPT CLEAN AND DRY. SAFETY MEASURES ARE IN PLACE. REMINDED PT TO USE CALL LIGHT WHEN ASSISTANCE IS NEEDED, CALL LIGHT IS LEFT WITHIN REACH. WILL ENDORSE TO NEXT SHIFT FOR CONTINUITY OF CARE.
[2017-12-27 06:45] LABS: BASOPHILS # (AUTO) 0.1 /CMM (0.0-0.2); EOSINOPHILS % (AUTO) 9.6 % (0.0-6.0); HEMATOCRIT 37 % (39-51); LYMPHOCYTES # (AUTO) 2.2 /CMM (0.8-4.8); LYMPHOCYTES % (AUTO) 25.6 % (20.0-44.0); MEAN CORPUSCULAR HGB CONC 33 g/dl (31.0-36.0); MEAN CORPUSCULAR VOLUME 82 fL (80-96); MONOCYTES # (AUTO) 0.4 /CMM (0.1-1.30); MONOCYTES % (AUTO) 4.9 % (2.0-12.0); NEUTROPHILS % (AUTO) 58.9 % (43.0-81.0); PLATELET COUNT (AUTO) 288 /CMM (150-450); RDW COEFFICIENT OF VARIATION 16.9 (11.5-15.0); RED BLOOD CELL COUNT(AUTO) 4.47 MIL/uL (4.5-6.0); WHITE BLOOD COUNT (AUTO) 8.5 K/uL (4.3-11.0)
[2017-12-27 06:57] LABS: CALCIUM, SERUM 8.7 mg/dL (8.5-10.1); CREATININE 1.3 mg/dL (0.6-1.3); MAGNESIUM 1.8 mg/dL (1.8-2.4); PHOSPHORUS 3.8 mg/dL (2.5-4.9); POTASSIUM 3.9 mmol/L (3.5-5.1)
[2017-12-27 08:00] VITALS: BP 100/67
--- NOTE | 2017-12-27 08:24 | NUR ---
RN OPENING NOTES RECEIVED PT. IN BED A&OX4. BREATHING UNLABORED, AND EVENLY ON OXYGEN AT 3L/MIN VIA NASAL CANNULA. PT. REPORTED HE SLEPT WELL LAST NIGHT. PT. DENIES PAIN. VELIZ CATHETER IN PLACE WITH CLEAR, AND BRENDEN URINE OUTPUT 50 CC. NO S/S OF ACUTE DISTRESS. BED IS IN LOWEST, AND LOCKED POSITION. 2 SIDE RAILS UP, AND INSTRUCTED PT. TO USE CALL LIGHT FOR ASSISTANCE. ALL NEEDS MET. WILL CONTINUE TO ASSESS AND MONITOR.
[2017-12-27] MEDS: CARVEDILOL 6.25 MG TABLET PO SCH ×2 (09:00→20:51)
[2017-12-27] MEDS: TICAGRELOR 90 MG TABLET PO SCH ×2 (09:27→17:14)
[2017-12-27] MEDS: ASPIRIN 81 MG TAB.CHEW PO SCH (09:27)
[2017-12-27] MEDS: BOOST PLUS FOOD-CHOCLATE 237 ML BOX PO SCH ×3 (09:28→17:13)
[2017-12-27] MEDS: FUROSEMIDE 20 MG/2 ML VIAL IV SCH (09:34)
[2017-12-27] MEDS: VANCOMYCIN 0.75 GM in IV NS 0.9% 250 ML IV SCH ×2 (09:44→20:44)
[2017-12-27] MEDS ORDERED: FEE PK DOSING 1 MIN EA MC ONE (12:17)
[2017-12-27 16:00] VITALS: BP 91/64
[2017-12-27 18:58] LABS: APPEARANCE,URINE CLEAR (CLEAR); BILIRUBIN,URINE NEGATIVE (NEGATIVE); BLOOD, URINE 2+ Ery/uL (NEGATIVE); COLOR,URINE YELLOW (YELLOW); KETONES,URINE NEGATIVE (NEGATIVE); LEUKOCYTE ESTERASE ,URINE TRACE (NEGATIVE); NITRITE, URINE NEGATIVE (NEGATIVE); PH,URINE 5.5 (5.0-8.0); PROTEIN,URINE NEGATIVE (NEGATIVE); UGLUCOSE NEGATIVE (NEGATIVE)
[2017-12-27 19:07] LABS: BACTERIA,URINE 2+ /HPF (None Seen); SQUAMOUS EPITHELIAL CELL,UR 0-2 /HPF (None Seen)
[2017-12-27 19:08] LABS: MUCUS,URINE Few /LPF (None Seen)
--- NOTE | 2017-12-27 19:10 | NUR ---
MS RN OPENING NOTE RECEIVED PATIENT IN BED, ALERT ORIENTED X3, ON 3L OXYGEN VIA NC, TOLERATING WELL, IN NO APPARENT DISTRESS OR DISCOMFORT AT THIS TIME. RESPIRATIONS EVEN AND UNLABORED, DENIES SOB AND CHEST PAIN. CONTACT ISOLATION OBSERVED. PATIENT WITH VELIZ CATHETER WITH YELLOW CLEAR URINE OUTPUT. DRAINING WELL. RIGHT FOREARM 22G SL. PATENT AND INTACT. ABLE TO COMMUNICATE NEEDS. PATIENT KEPT CLEAN AND COMFORTABLE. SAFETY MEASURES IN PLACE, BED IN LOW LOCKED POSITION, SIDE RAILS UPX2, CALL LIGHT WITHIN EASY REACH, WILL CONTINUE TO MONITOR.
--- NOTE | 2017-12-27 19:43 | NUR ---
RN CLOSING NOTES PT. IS IN BED A&OX4. BREATHING UNLABORED, AND EVENLY ON OXYGEN AT 3L/MIN VIA NASAL CANNULA. NO S/S OF ACUTE DISTRESS. VELIZ CATHETER IN PLACE WITH CLEAR, AND BRENDEN URINE OUTPUT 50 CC, REMOVED 500 CC OF URINE. A URINE CULTURE, AND URINALYSIS WAS TAKEN. BED IS IN LOWEST, AND LOCKED POSITION. HEAD OF BED IS UP. 2 SIDE RAILS UP, AND INSTRUCTED PT. TO USE CALL LIGHT FOR ASSISTANCE. ALL NEEDS MET. WILL CONTINUE ENDORSE REPORT TO NURSE.
[2017-12-27 20:00] VITALS: BP 93/54
[2017-12-27] MEDS: MUPIROCIN OINT 2% 22 GM TUBE SCH (20:51)
--- NOTE | 2017-12-27 21:00 | NUR ---
COREG WAS HELD DUE TO PATIENT'S SBP OF 93. WILL CONTINUE TO MONITOR.
[2017-12-27] MEDS: ATORVASTATIN 40 MG TABLET PO SCH (21:07)
--- NOTE | 2017-12-28 07:20 | NUR ---
RN NOTES: PATIENT RESTING IN BED. NONLABORED BREATHING NOTED ON 3 L NASAL CANNULA. IV SITE ON LEFT HAND GAUGE 18 PATENT AND INTACT. PATIENT DENYING CHEST PAIN AND DENYING PAIN. VELIZ CATHETER DRAINING BRENDEN URINE. BED IN LOWEST LOCKED POSITION. CALL LIGHT WITHIN REACH. WILL CONTINUE TO MONITOR
--- NOTE | 2017-12-28 07:33 | NUR ---
MS RN CLOSING NOTE PATIENT IN BED, ALERT ORIENTED X3, ON 3L OXYGEN VIA NC, TOLERATING WELL, IN NO APPARENT DISTRESS OR DISCOMFORT AT THIS TIME. RESPIRATIONS EVEN AND UNLABORED, DENIES SOB AND CHEST PAIN. CONTACT ISOLATION OBSERVED. PATIENT WITH VELIZ CATHETER WITH 300CC OF BRENDEN/YELLOW URINE OUTPUT. DRAINING WELL. RIGHT FOREARM 22G SL. PATENT AND INTACT. ABLE TO COMMUNICATE NEEDS. PATIENT KEPT CLEAN AND COMFORTABLE. ALL NEEDS ATTENDED, SAFETY MEASURES IN PLACE, BED IN LOW LOCKED POSITION, SIDE RAILS UPX2, CALL LIGHT WITHIN EASY REACH, WILL ENDORSE TO AM NURSE FOR ALFREDO.
[2017-12-28 08:00] VITALS: BP 96/59
[2017-12-28 08:26] LABS: CALCIUM, SERUM 8.9 mg/dL (8.5-10.1); CREATININE 1.2 mg/dL (0.6-1.3); POTASSIUM 4.5 mmol/L (3.5-5.1)
[2017-12-28] MEDS: BOOST PLUS FOOD-CHOCLATE 237 ML BOX PO SCH ×3 (09:00→18:15)
[2017-12-28] MEDS: VANCOMYCIN 0.75 GM in IV NS 0.9% 250 ML IV SCH ×2 (09:49→20:52)
[2017-12-28] MEDS: FUROSEMIDE 20 MG/2 ML VIAL IV SCH (11:00)
[2017-12-28] MEDS: CARVEDILOL 6.25 MG TABLET PO SCH ×2 (11:00→21:11)
[2017-12-28] MEDS: MUPIROCIN OINT 2% 22 GM TUBE SCH ×2 (11:06→20:57)
[2017-12-28] MEDS: ASPIRIN 81 MG TAB.CHEW PO SCH (11:10)
[2017-12-28] MEDS: TICAGRELOR 90 MG TABLET PO SCH ×2 (11:10→18:14)
--- NOTE | 2017-12-28 12:00 | NUR ---
PATIENT REFUSING LASIX. BENEFITS AND RISKS EXPLAINED.
[2017-12-28 16:00] VITALS: BP 94/56
--- NOTE | 2017-12-28 18:29 | NUR ---
RN CLOSING NOTES: PATIENT RESTING IN BED. NONLABORED BREATHING NOTED ON 2 L NASAL CANNULA. DENYING PAIN AT THE MOMENT. PATIENT STABLE THROUGHOUT SHIFT. DENIES CHEST PAIN. VELIZ CATHETER DRAINING BRENDEN CLEAR URINE. SAFETY AND CONTACT ISOLATION PRECAUTIONS IMPLEMENTED. IV SITE ON LEFT HAND PATENT AND INTACT GAUGE 22. PATIENT REFUSED TO BE TURNED AND REPOSITIONED DURING SHIFT. EDUCATED ABOUT WOUND DEVELOPMENT ON SACRUM. WOUND CARE DONE. PATIENT AFEBRILE DURING SHIFT. BP STABLE. WILL ENDORSE TO NEXT NURSE
--- NOTE | 2017-12-28 19:30 | NUR ---
MS RN OPENING NOTES RECEIVED PT IN BED ALERT, AWAKE, VERBALLY RESPONSIVE. ON O2 VIA N/C AT 3L/MIN, RESPIRATIONS EVEN, UNLABORED, NO APPARENT DISTRESS NOTED. COMPLAINED OF PAIN NORCO 5/325 ADMINISTERED. IV SITE RFA INTACT, PATENT. CALL LIGHT WITHIN REACH. BED LOCKED IN LOWEST POSITION. F/C IN PLACE DRAINING YELLOW COLOR URINE. ATTENDED ALL NEEDS. WILL CONTINUE TO MONITOR ACCORDINGLY.
[2017-12-28 20:00] VITALS: BP 105/72
[2017-12-28] MEDS: ATORVASTATIN 40 MG TABLET PO SCH (21:11)
--- NOTE | 2017-12-29 06:23 | NUR ---
MS RN CLOSING NOTES PT IN BED RESTING COMFORTABLY. ON O2 VIA N/C AT 3L/MIN, NO RESPIRATORY DISTRESS NOTED. F/C IN PLACE DRAINING YELLOW COLOR URINE. CALL LIGHT WITHIN REACH. KEPT CLEAN AND COMFORTABLE.ATTENDED ALL NEEDS. WILL ENDORSE TO DAY SHIFT FOR CONTINUITY OF CARE.
[2017-12-29 07:30] LABS: POTASSIUM 4.3 mmol/L (3.5-5.1)
[2017-12-29 08:00] VITALS: BP 103/67
--- NOTE | 2017-12-29 08:00 | NUR ---
MS RN OPENING NOTES Patient was seen lying comfortably in bed, AAOx4, breathing comfortably on 3L O2 NC no SOB, no signs of acute distress. Peripheral IV in right FA 22g TKO running NS 5 ml/hr. Fishman cath draining clear yellow urine. Bed in low/locked position, two side rails up, call bhat within reach. Will continue to monitor.
[2017-12-29] MEDS: ASPIRIN 81 MG TAB.CHEW PO SCH (08:49)
[2017-12-29] MEDS: VANCOMYCIN 0.75 GM in IV NS 0.9% 250 ML IV SCH ×2 (08:49→22:11)
[2017-12-29] MEDS: TICAGRELOR 90 MG TABLET PO SCH ×2 (08:50→17:09)
[2017-12-29] MEDS: CARVEDILOL 6.25 MG TABLET PO SCH ×2 (08:50→21:00)
[2017-12-29] MEDS: FUROSEMIDE 20 MG/2 ML VIAL IV SCH (08:50)
[2017-12-29] MEDS: MUPIROCIN OINT 2% 22 GM TUBE SCH ×2 (08:57→22:14)
[2017-12-29] MEDS: BOOST PLUS FOOD-CHOCLATE 237 ML BOX PO SCH ×3 (09:00→17:09)
--- NOTE | 2017-12-29 15:45 | NUR ---
MS RN NOTE - update, family concern Patient's family at bedside with concerns regarding patient's readiness for discharge. Treatment plan and discharge plan was discussed with the patient. Dr. Stevan Koo DNP was also notified and came to talk with the patient and family in more detail.
[2017-12-29 16:00] VITALS: BP 97/67
--- NOTE | 2017-12-29 18:04 | NUR ---
MS RN CLOSING NOTES Patient is resting comfortably in bed, AAOx4, breathing on 3L O2 NC with no SOB, no signs of acute distress, vital signs WNL. Peripheral right FA IV is running NS 5 ml/hr TKO. Fishman catheter is draining clear, dark yellow urine. Per Stevan Koo DNP anticipated discharge tomorrow 12/30 with PICC line for continued antibiotic therapy. Bed is low/locked position, two side rails up, call bhat within reach. All orders and treatments carried out. Patient care to be endorsed to paint coating machine operator nurse.
--- NOTE | 2017-12-29 19:10 | NUR ---
RN NOTES RECEIVED PT AWAKE, ALERT AND ORIENTED X4, HOB ELEVATED, ON O2 INHALATION AT 3LPM VIA NC TOLERATED WELL. PT DENIES ANY PAIN AND DISCOMFORT AT THIS TIME. IV ACCESS ON RIGHT FOREARM PATENT AND INTACT WITH ONGOING NS AT 5 ML/HR INFUSING WELL. VELIZ CATH INTACT WITH CLEAR BRENDEN COLORED URINE NOTED. KEPT PT COMFORTABLE, HEELS ELEVATED AND REPOSITIONED. KEPT BED IN THE LOWEST POSITION, LOCKED, SIDE RAILS X2 UP, WITH CALL LIGHT WITH IN REACH. PLAN OF CARE DISCUSSED WITH THE PT AND VERBALIZED UNDERSTANDING. WILL CONTINUE TO MONITOR PT.
[2017-12-29 20:00] VITALS: BP 104/68
[2017-12-29] MEDS: ATORVASTATIN 40 MG TABLET PO SCH (22:13)
--- NOTE | 2017-12-30 07:11 | NUR ---
RN NOTES PT SLEPT WELL OVERNIGHT, VITAL SIGNS STABLE. CURRENT DIET TOLERATED WELL, NO EPISODE OF NAUSEA AND VOMITING. NO COMPLAIN OF PAIN. KEPT CLEAN AND DRY. TURNED AND REPOSITIONED Q2H. SAFETY MEASURES AND FALL PRECAUTION OBSERVED. WILL ENDORSE TO MORNING RN FOR CONTINUITY OF CARE.
[2017-12-30 07:50] LABS: CALCIUM, SERUM 9.3 mg/dL (8.5-10.1); CREATININE 1.2 mg/dL (0.6-1.3); POTASSIUM 5.3 mmol/L (3.5-5.1)
[2017-12-30 08:00] VITALS: BP 110/70
--- NOTE | 2017-12-30 08:00 | NUR ---
MS RN OPENING NOTES Patient was seen in bed AAOx4. Patient appeared to have labored breathing and reported mild SOB; lung sounds were clear; O2 NC was increased from 3 to 4L. Otherwise, patient stated he is comfortable and shows no signs of acute distress. Vital signs WNL. Right FA IV is running NS at 5 ml/hr TKO. Fishman is draining clear yellow urine. Bed is low/locked position, two side rails up, call bhat within reach. Will continue to monitor.
[2017-12-30] MEDS: TICAGRELOR 90 MG TABLET PO SCH ×2 (08:30→16:40)
[2017-12-30] MEDS: MUPIROCIN OINT 2% 22 GM TUBE SCH ×2 (08:30→20:34)
[2017-12-30] MEDS: ASPIRIN 81 MG TAB.CHEW PO SCH (08:31)
[2017-12-30] MEDS: CARVEDILOL 6.25 MG TABLET PO SCH ×2 (08:32→20:33)
[2017-12-30] MEDS: VANCOMYCIN 0.75 GM in IV NS 0.9% 250 ML IV SCH ×2 (08:34→20:33)
[2017-12-30] MEDS: FUROSEMIDE 20 MG/2 ML VIAL IV SCH (08:35)
[2017-12-30] MEDS: ENSURE ENLIVE CHOC 237 ML CAN PO SCH ×3 (08:39→16:40)
[2017-12-30] MEDS ORDERED: SODIUM POLYSTYRENE SULFONATE 15 G/60 ML BOTTLE PO ONE (13:00)
--- NOTE | 2017-12-30 14:00 | NUR ---
MS RN NOTE - PICC INSERTION PICC line inserted at bedside by PICC LINE Nurse. Chest Xray obtained. Patient tolerated procedure well.
[2017-12-30 16:00] VITALS: BP 107/61
--- NOTE | 2017-12-30 18:31 | NUR ---
MS RN CLOSING NOTES Patient rests comfortably in bed, AAOx4, breathing on 4L O2 NC, no signs of acute distress. Patient is awaiting discharge, pending Vanco trough, and will return home with PICC line in upper right arm and continue antibiotic therapy with Home Health Nurse. Fishman catheter drained 750 ml of clear yellow urine. Bed is in low/locked position, two side rails up, call bhat within reach. All patient needs have been met and orders carried out. Patient care to be endorsed to date night caregiver nurse.
--- NOTE | 2017-12-30 19:10 | NUR ---
RN NOTES RECEIVED PT AWAKE, ALERT WITH O2 INHALATION AT 3LPM O2 VIA NC AND TOLERATED WELL. PT DENIES ANY PAIN AND DISCOMFORT. RIGHT UPPER ARM PICC LINE INTACT . VELIZ CATH INTACT WITH CLEAR YELLOW URINE OUTPUT. WILL DO VANCO THROUGH, IF WNL WILL ADMINISTER VANCO BEFORE DISCHARGE. WILL CONTINUE TO MONITOR PT.
[2017-12-30 20:33] VITALS: BP 120/80
[2017-12-30] MEDS: ATORVASTATIN 40 MG TABLET PO SCH (20:33)
--- NOTE | 2017-12-30 20:33 | NUR ---
RN NOTES VANCO THROUGH 16, VANCO IVPB ADMINISTERED WITH OTHER DUE MEDS GIVEN.
--- NOTE | 2017-12-30 21:50 | NUR ---
RN NOTES [facility]ANCO IVPB DONE. PT IN STABLE CONDITION VITAL SIGNS STABLE BP 102/66 HR 100, RR 19, TEMP 97.4, O2SAT 100% AT 3LPM O2. PT DENIES PAIN, NAUSEA AND VOMITING. CHEST CLEAR ON AUSCULTATION, ON 3LPM O2 VIA NC, BREATHING REGULAR AND UNLABORED. RIGHT UPPER ARM PICC LINE INTACT WITH DRESSING CLEAN AND DRY. VELIZ CATH INTACT WITH CLEAR YELLOW OUTPUT. PT CLEAN AND DRY. DISCHARGE INSTRUCTIONS GIVEN TO THE PT AND VERBALIZED UNDERSTANDING, AND SIGNED THE DISCHARGE PAPERS. NO BELONGINGS AT BEDSIDE. DISCHARGED IN STABLE CONDITION.
== END 2017-12-30 21:50 | disposition home health service (06) | DRG 190 ==
LOC: ER 18:29 → TELE1 20:04 → MEDSG1 12-22 08:40 → MED 12-23 02:32
PROVIDERS: ADMIT Internal Medicine; ATTEND Internal Medicine
DX: I21.4 Non-ST elevation (NSTEMI) myocardial infarction (principal); J96.01 Acute respiratory failure with hypoxia; I50.23 Acute on chronic systolic (congestive) heart failure; L89.152 Pressure ulcer of sacral region, stage 2; D68.59 Other primary thrombophilia; E44.0 Moderate protein-calorie malnutrition; E87.5 Hyperkalemia; I11.0 Hypertensive heart disease with heart failure; G35 Multiple sclerosis; I08.1 Rheumatic disorders of both mitral and tricuspid valves; N39.0 Urinary tract infection, site not specified; I25.10 Atherosclerotic heart disease of native coronary artery without angina pectoris; Z98.61 Coronary angioplasty status; Z95.810 Presence of automatic (implantable) cardiac defibrillator; Z82.49 Family history of ischemic heart disease and other diseases of the circulatory system; Z74.01 Bed confinement status; K21.9 Gastro-esophageal reflux disease without esophagitis; F17.200 Nicotine dependence, unspecified, uncomplicated; Z79.82 Long term (current) use of aspirin; Z79.899 Other long term (current) drug therapy; I25.5 Ischemic cardiomyopathy; K59.00 Constipation, unspecified; E78.5 Hyperlipidemia, unspecified; B95.62 Methicillin resistant Staphylococcus aureus infection as the cause of diseases classified elsewhere; D63.8 Anemia in other chronic diseases classified elsewhere; J40 Bronchitis, not specified as acute or chronic; Z98.890 Other specified postprocedural states; L98.9 Disorder of the skin and subcutaneous tissue, unspecified; B96.89 Other specified bacterial agents as the cause of diseases classified elsewhere; F12.20 Cannabis dependence, uncomplicated
CPT/HCPCS: 36415; 36569; 71045-TC; 80048-TC; 80076-TC; 80202-TC; 81000-TC; 82746; 82962-TC; 83540-TC; 83735-TC; 83880; 84100-TC; 84443-TC; 84484-TC; 85025-TC; 85730-TC; 87040-TC; 87081-TC; 87086-TC; 94799-TC; A4606; A6402; C1751; J0696; J1940; J3370; J7030; J7050; J7060; Z7610

== ENCOUNTER 2018-01-05 13:15 | Inpatient (IN) | payer OTHER ==
[~2018-01-05] VITALS: Ht 175.3 cm; Wt 68.5 kg
[~2018-01-05 13:15] MED LIST changes: -LEVO250T2 PO
[2018-01-05 13:44] LABS: BASOPHILS # (AUTO) 0.1 /CMM (0.0-0.2); BASOPHILS % (AUTO) 1.3 % (0.0-2.0); EOSINOPHILS % (AUTO) 2.1 % (0.0-6.0); HEMATOCRIT 36 % (39-51); HEMOGLOBIN 11.7 g/dL (13.5-17.5); LYMPHOCYTES # (AUTO) 2.4 /CMM (0.8-4.8); LYMPHOCYTES % (AUTO) 21.6 % (20.0-44.0); MEAN CORPUSCULAR HGB CONC 33 g/dl (31.0-36.0); MEAN CORPUSCULAR VOLUME 84 fL (80-96); MONOCYTES # (AUTO) 0.4 /CMM (0.1-1.30); MONOCYTES % (AUTO) 3.7 % (2.0-12.0); NEUTROPHILS # (AUTO) 7.8 /CMM (1.8-8.9); NEUTROPHILS % (AUTO) 71.3 % (43.0-81.0); PLATELET COUNT (AUTO) 369 /CMM (150-450); RDW COEFFICIENT OF VARIATION 16.8 (11.5-15.0); RED BLOOD CELL COUNT(AUTO) 4.27 MIL/uL (4.5-6.0); WHITE BLOOD COUNT (AUTO) 10.9 K/uL (4.3-11.0)
[2018-01-05 13:48] LABS: APPEARANCE,URINE Turbid (CLEAR); BILIRUBIN,URINE SMALL (NEGATIVE); BLOOD, URINE Small Ery/uL (NEGATIVE); KETONES,URINE Negative (NEGATIVE); LEUKOCYTE ESTERASE ,URINE Negative (NEGATIVE); NITRITE, URINE Negative (NEGATIVE); PH,URINE 5.5 (5.0-8.0); PROTEIN,URINE 100 mg/dl (NEGATIVE); UGLUCOSE Negative (NEGATIVE); UROBILINOGEN,URINE 0.2 EU/dL (0.2)
[2018-01-05 13:53] LABS: COLOR,URINE Dark Yellow (YELLOW)
[2018-01-05 13:55] LABS: CALCIUM, SERUM 8.8 mg/dL (8.5-10.1); CARBON DIOXIDE 22 mmol/L (21-32); CHLORIDE 108 mmol/L (98-107); CREATININE 1.3 mg/dL (0.6-1.3); GLUCOSE 142 mg/dL (74-106); POTASSIUM 3.7 mmol/L (3.5-5.1); SODIUM SERUM 142 mmol/L (136-145); UREA NITROGEN, BLOOD 28 mg/dL (7-18)
[2018-01-05 13:58] LABS: BACTERIA,URINE Rare /HPF (None Seen); INR 1.22 (0.85-1.15); SQUAMOUS EPITHELIAL CELL,UR Few /HPF (None Seen); URINE AMORPHOUS URATE Moderate /HPF (None Seen)
[2018-01-05] MEDS ORDERED: IOHEXOL-350 100 ML VIAL IV ONE (14:00)
[2018-01-05] MEDS ORDERED: IV NS 0.9% 250 ML IV ONE (14:00)
[2018-01-05 14:02] LABS: TROPONIN I 0.135 ng/mL (0.00-0.056)
[2018-01-05 14:07] LABS: ALANINE AMINOTRANSFERASE 89 U/L (12-78); ALBUMIN 2.9 g/dL (3.4-5.0); ALKALINE PHOSPHATASE 113 U/L (46-116); ASPARTATE AMINOTRANSFERASE 66 U/L (15-37); B-TYPE NATRIURETIC PEPTIDE 14372 PG/ML (0-125); BILIRUBIN,DIRECT 0.3 mg/dL (0.0-0.2); BILIRUBIN,TOTAL 0.8 mg/dL (0.2-1.0); TOTAL PROTEIN, SERUM 6.8 g/dL (6.4-8.2)
[2018-01-05] MEDS ORDERED: FUROSEMIDE 40 MG/4 ML VIAL IV ONE (14:30)
[2018-01-05] MEDS ORDERED: FUROSEMIDE 40 MG/4 ML VIAL ONE (14:30)
[2018-01-05] MEDS ORDERED: ASPIRIN 325 MG TABLET ONE (14:30)
[2018-01-05] MEDS ORDERED: FUROSEMIDE 20 MG/2 ML VIAL ONE (14:30)
[2018-01-05] MEDS ORDERED: ASPIRIN 325 MG TABLET PO ONE (14:30)
[2018-01-05] MEDS ORDERED: CLOP75TA15 PO (15:24)
[2018-01-05] MEDS ORDERED: FURO20TA4 PO (15:24)
[2018-01-05 16:00] VITALS: BP 133/78
[2018-01-05] MEDS ORDERED: IV NS 0.9% 1,000 ML IV PRN (16:46)
[2018-01-05] MEDS ORDERED: MAG HYDROX/AL HYDROX/SIMETH 30 ML UDC PO PRN (17:00)
[2018-01-05] MEDS ORDERED: TICAGRELOR 90 MG TABLET PO SCH (17:00)
[2018-01-05] MEDS ORDERED: ACETAMINOPHEN 325 MG TABLET PO PRN (17:00)
[2018-01-05] MEDS ORDERED: Z GUARD REMEDY 2 OZ OINT TP PRN (17:00)
[2018-01-05] MEDS ORDERED: MAGNESIUM HYDROXIDE 30 ML UDC PO PRN (17:00)
[2018-01-05] MEDS ORDERED: FUROSEMIDE 20 MG TABLET PO SCH (17:00)
[2018-01-05] MEDS ORDERED: ONDANSETRON HCL/PF 4 MG/2 ML VIAL IVP PRN (17:00)
[2018-01-05] MEDS: ENOXAPARIN SODIUM 40 MG/0.4 ML DISP.SYRIN SQ SCH (17:24)
[2018-01-05] MEDS: CARVEDILOL 6.25 MG TABLET PO SCH (17:24)
[2018-01-05] MEDS ORDERED: TICAGRELOR 90 MG TABLET PO ONE (17:30)
[2018-01-05 20:00] VITALS: BP 118/74
[2018-01-05] MEDS: MUPIROCIN OINT 2% 22 GM TUBE SCH (20:33)
[2018-01-05] MEDS ORDERED: CARVEDILOL 6.25 MG TABLET PO SCH (21:00)
[2018-01-05] MEDS ORDERED: ATORVASTATIN 40 MG TABLET PO SCH (22:00)
[2018-01-05] MEDS: ATORVASTATIN 40 MG TABLET PO SCH (22:05)
[2018-01-05] MEDS: ZOLPIDEM TARTRATE 5 MG TABLET PO PRN (22:10)
[2018-01-06] VITALS: BP 94/68
[2018-01-06 03:18] LABS: BASOPHILS # (AUTO) 0.1 /CMM (0.0-0.2); BASOPHILS % (AUTO) 1.1 % (0.0-2.0); HEMATOCRIT 35 % (39-51); HEMOGLOBIN 11.2 g/dL (13.5-17.5); LYMPHOCYTES # (AUTO) 2.8 /CMM (0.8-4.8); LYMPHOCYTES % (AUTO) 20.5 % (20.0-44.0); MEAN CORPUSCULAR HGB CONC 32 g/dl (31.0-36.0); MEAN CORPUSCULAR VOLUME 84 fL (80-96); MONOCYTES # (AUTO) 0.5 /CMM (0.1-1.30); NEUTROPHILS # (AUTO) 9.5 /CMM (1.8-8.9); NEUTROPHILS % (AUTO) 69.4 % (43.0-81.0); PLATELET COUNT (AUTO) 357 /CMM (150-450); RDW COEFFICIENT OF VARIATION 18.2 (11.5-15.0); RED BLOOD CELL COUNT(AUTO) 4.11 MIL/uL (4.5-6.0); WHITE BLOOD COUNT (AUTO) 13.6 K/uL (4.3-11.0)
[2018-01-06 03:33] LABS: CALCIUM, SERUM 9.1 mg/dL (8.5-10.1); CREATININE 1.1 mg/dL (0.6-1.3); MAGNESIUM 1.9 mg/dL (1.8-2.4); PHOSPHORUS 4.6 mg/dL (2.5-4.9)
[2018-01-06 03:46] VITALS: BP 111/84
[2018-01-06 04:00] VITALS: BP 111/84
[2018-01-06] MEDS ORDERED: POTASSIUM CHLORIDE 20 MEQ TAB.PRT.SR PO ONE (05:30)
[2018-01-06 08:00] VITALS: BP 107/74
[2018-01-06] MEDS: FUROSEMIDE 40 MG/4 ML VIAL IV SCH ×2 (08:30→16:36)
[2018-01-06] MEDS: CARVEDILOL 6.25 MG TABLET PO SCH ×2 (08:30→16:37)
[2018-01-06] MEDS: ASPIRIN 81 MG TAB.CHEW PO SCH (08:30)
[2018-01-06] MEDS: CLOPIDOGREL BISULFATE 75 MG TABLET PO SCH (08:30)
[2018-01-06] MEDS ORDERED: ASPIRIN 81 MG TAB.CHEW PO SCH (09:00)
[2018-01-06] MEDS ORDERED: CLOPIDOGREL BISULFATE 75 MG TABLET PO SCH (09:00)
[2018-01-06] MEDS: POTASSIUM CL. PREMIX PERIPHER. 50 ML IV SCH ×2 (09:26→10:52)
[2018-01-06] MEDS: MUPIROCIN OINT 2% 22 GM TUBE SCH ×2 (09:29→20:27)
[2018-01-06 16:00] VITALS: BP 114/73
[2018-01-06 20:00] VITALS: BP 101/59
[2018-01-06] MEDS: HYDROCODONE/APAP 5/325MG 1 EACH TABLET PO PRN (20:22)
[2018-01-06] MEDS: ENOXAPARIN SODIUM 40 MG/0.4 ML DISP.SYRIN SQ SCH (20:23)
[2018-01-06] MEDS: ATORVASTATIN 40 MG TABLET PO SCH (21:30)
[2018-01-07] VITALS: BP 110/57
[2018-01-07 04:00] VITALS: BP 106/70
[2018-01-07 06:42] LABS: BASOPHILS % (AUTO) 0.4 % (0.0-2.0); EOSINOPHILS % (AUTO) 6.1 % (0.0-6.0); HEMATOCRIT 32 % (39-51); HEMOGLOBIN 10.7 g/dL (13.5-17.5); LYMPHOCYTES # (AUTO) 2.2 /CMM (0.8-4.8); LYMPHOCYTES % (AUTO) 23.4 % (20.0-44.0); MEAN CORPUSCULAR HGB CONC 33 g/dl (31.0-36.0); MEAN CORPUSCULAR VOLUME 84 fL (80-96); MONOCYTES # (AUTO) 0.5 /CMM (0.1-1.30); MONOCYTES % (AUTO) 4.9 % (2.0-12.0); NEUTROPHILS # (AUTO) 6.1 /CMM (1.8-8.9); NEUTROPHILS % (AUTO) 65.2 % (43.0-81.0); PLATELET COUNT (AUTO) 298 /CMM (150-450); RDW COEFFICIENT OF VARIATION 17.6 (11.5-15.0); RED BLOOD CELL COUNT(AUTO) 3.84 MIL/uL (4.5-6.0); WHITE BLOOD COUNT (AUTO) 9.4 K/uL (4.3-11.0)
[2018-01-07 07:16] LABS: CALCIUM, SERUM 8.2 mg/dL (8.5-10.1); MAGNESIUM 1.7 mg/dL (1.8-2.4); PHOSPHORUS 3.6 mg/dL (2.5-4.9)
[2018-01-07 08:00] VITALS: BP 100/77
[2018-01-07] MEDS: ASPIRIN 81 MG TAB.CHEW PO SCH (08:34)
[2018-01-07] MEDS: CARVEDILOL 6.25 MG TABLET PO SCH ×2 (08:35→17:52)
[2018-01-07] MEDS: FUROSEMIDE 40 MG/4 ML VIAL IV SCH (08:35)
[2018-01-07] MEDS: CLOPIDOGREL BISULFATE 75 MG TABLET PO SCH (08:35)
[2018-01-07] MEDS: MUPIROCIN OINT 2% 22 GM TUBE SCH ×2 (08:41→21:32)
[2018-01-07] MEDS: HYDROCODONE/APAP 5/325MG 1 EACH TABLET PO PRN (08:56)
[2018-01-07] MEDS: Magnesium 1GM/D5W 100ML PREMIX 100 ML IV SCH ×2 (11:00→15:05)
[2018-01-07] MEDS ORDERED: POTASSIUM CHLORIDE 20 MEQ TAB.PRT.SR PO ONE (11:00)
[2018-01-07] MEDS: SPIRONOLACTONE 25 MG TABLET PO SCH (15:06)
[2018-01-07] MEDS: FUROSEMIDE 100 MG/10 ML VIAL IV SCH ×2 (15:06→21:33)
[2018-01-07 16:00] VITALS: BP 111/66
[2018-01-07] MEDS ORDERED: POTASSIUM CHLORIDE 20 MEQ POWDER PACKET PO ONE (18:00)
[2018-01-07 20:00] VITALS: BP 114/74
[2018-01-07] MEDS: ATORVASTATIN 40 MG TABLET PO SCH (21:31)
[2018-01-07] MEDS: ENOXAPARIN SODIUM 40 MG/0.4 ML DISP.SYRIN SQ SCH (21:32)
[2018-01-08] VITALS: BP 107/69
[2018-01-08 04:00] VITALS: BP 107/56
[2018-01-08] MEDS: FUROSEMIDE 100 MG/10 ML VIAL IV SCH ×3 (05:14→21:58)
[2018-01-08 06:44] LABS: BASOPHILS % (AUTO) 0.3 % (0.0-2.0); EOSINOPHILS % (AUTO) 0.1 % (0.0-6.0); HEMATOCRIT 34 % (39-51); HEMOGLOBIN 10.9 g/dL (13.5-17.5); LYMPHOCYTES # (AUTO) 1.4 /CMM (0.8-4.8); MEAN CORPUSCULAR HGB CONC 32 g/dl (31.0-36.0); MEAN CORPUSCULAR VOLUME 85 fL (80-96); MONOCYTES # (AUTO) 0.5 /CMM (0.1-1.30); MONOCYTES % (AUTO) 5.4 % (2.0-12.0); NEUTROPHILS # (AUTO) 6.7 /CMM (1.8-8.9); NEUTROPHILS % (AUTO) 78.2 % (43.0-81.0); PLATELET COUNT (AUTO) 288 /CMM (150-450); RDW COEFFICIENT OF VARIATION 18.4 (11.5-15.0); RED BLOOD CELL COUNT(AUTO) 3.94 MIL/uL (4.5-6.0); WHITE BLOOD COUNT (AUTO) 8.5 K/uL (4.3-11.0)
[2018-01-08 06:58] LABS: CALCIUM, SERUM 8.5 mg/dL (8.5-10.1); CREATININE 1.3 mg/dL (0.6-1.3); MAGNESIUM 2.2 mg/dL (1.8-2.4); PHOSPHORUS 4.5 mg/dL (2.5-4.9); POTASSIUM 4.2 mmol/L (3.5-5.1)
[2018-01-08 08:00] VITALS: BP 103/69
[2018-01-08] MEDS: MUPIROCIN OINT 2% 22 GM TUBE SCH ×2 (09:03→22:02)
[2018-01-08] MEDS: CLOPIDOGREL BISULFATE 75 MG TABLET PO SCH (09:04)
[2018-01-08] MEDS: CARVEDILOL 6.25 MG TABLET PO SCH ×2 (09:04→19:01)
[2018-01-08] MEDS: SPIRONOLACTONE 25 MG TABLET PO SCH (09:04)
[2018-01-08] MEDS: ASPIRIN 81 MG TAB.CHEW PO SCH (09:04)
[2018-01-08 15:52] VITALS: BP 102/69
[2018-01-08 20:00] VITALS: BP 109/78
[2018-01-08] MEDS: ATORVASTATIN 40 MG TABLET PO SCH (21:58)
[2018-01-08] MEDS: ENOXAPARIN SODIUM 40 MG/0.4 ML DISP.SYRIN SQ SCH (22:00)
[2018-01-08 23:57] VITALS: BP 101/64
[2018-01-09 04:00] VITALS: BP 104/74
[2018-01-09] MEDS: FUROSEMIDE 100 MG/10 ML VIAL IV SCH (05:54)
[2018-01-09 06:53] LABS: BASOPHILS # (AUTO) 0.1 /CMM (0.0-0.2); BASOPHILS % (AUTO) 0.5 % (0.0-2.0); EOSINOPHILS % (AUTO) 0.5 % (0.0-6.0); HEMATOCRIT 35 % (39-51); HEMOGLOBIN 11.5 g/dL (13.5-17.5); LYMPHOCYTES # (AUTO) 2.7 /CMM (0.8-4.8); LYMPHOCYTES % (AUTO) 22.5 % (20.0-44.0); MEAN CORPUSCULAR HGB CONC 33 g/dl (31.0-36.0); MEAN CORPUSCULAR VOLUME 84 fL (80-96); MONOCYTES # (AUTO) 1.1 /CMM (0.1-1.30); MONOCYTES % (AUTO) 9.1 % (2.0-12.0); NEUTROPHILS # (AUTO) 8.1 /CMM (1.8-8.9); NEUTROPHILS % (AUTO) 67.4 % (43.0-81.0); PLATELET COUNT (AUTO) 313 /CMM (150-450); RDW COEFFICIENT OF VARIATION 18.3 (11.5-15.0); RED BLOOD CELL COUNT(AUTO) 4.16 MIL/uL (4.5-6.0); WHITE BLOOD COUNT (AUTO) 12.1 K/uL (4.3-11.0)
[2018-01-09 07:03] LABS: CALCIUM, SERUM 8.8 mg/dL (8.5-10.1); CREATININE 1.5 mg/dL (0.6-1.3); MAGNESIUM 2.2 mg/dL (1.8-2.4); PHOSPHORUS 4.7 mg/dL (2.5-4.9); POTASSIUM 4.1 mmol/L (3.5-5.1)
[2018-01-09 08:00] VITALS: BP 111/81
[2018-01-09] MEDS: ASPIRIN 81 MG TAB.CHEW PO SCH (08:17)
[2018-01-09] MEDS: CLOPIDOGREL BISULFATE 75 MG TABLET PO SCH (08:17)
[2018-01-09] MEDS: CARVEDILOL 6.25 MG TABLET PO SCH ×2 (08:17→16:28)
[2018-01-09] MEDS: SPIRONOLACTONE 25 MG TABLET PO SCH (08:17)
[2018-01-09] MEDS: MUPIROCIN OINT 2% 22 GM TUBE SCH ×2 (08:18→21:20)
[2018-01-09] MEDS: ALBUTEROL FS 2.5 MG/0.5 ML VIAL.NEB NEB PRN ×3 (10:08→22:12)
[2018-01-09 16:00] VITALS: BP 115/78
[2018-01-09] MEDS: GLUCERNA SHAKE 237 ML CAN PO SCH (16:26)
[2018-01-09 20:00] VITALS: BP 107/69
[2018-01-09] MEDS: ATORVASTATIN 40 MG TABLET PO SCH (21:20)
[2018-01-09] MEDS: ENOXAPARIN SODIUM 40 MG/0.4 ML DISP.SYRIN SQ SCH (21:21)
[2018-01-10 06:41] LABS: BASOPHILS # (AUTO) 0.1 /CMM (0.0-0.2); BASOPHILS % (AUTO) 0.6 % (0.0-2.0); EOSINOPHILS % (AUTO) 0.3 % (0.0-6.0); HEMATOCRIT 35 % (39-51); HEMOGLOBIN 11.4 g/dL (13.5-17.5); LYMPHOCYTES # (AUTO) 2.3 /CMM (0.8-4.8); LYMPHOCYTES % (AUTO) 17.9 % (20.0-44.0); MEAN CORPUSCULAR HGB CONC 33 g/dl (31.0-36.0); MEAN CORPUSCULAR VOLUME 84 fL (80-96); MONOCYTES # (AUTO) 1.2 /CMM (0.1-1.30); MONOCYTES % (AUTO) 9.2 % (2.0-12.0); NEUTROPHILS # (AUTO) 9.4 /CMM (1.8-8.9); PLATELET COUNT (AUTO) 320 /CMM (150-450); RED BLOOD CELL COUNT(AUTO) 4.17 MIL/uL (4.5-6.0)
[2018-01-10 07:06] LABS: CALCIUM, SERUM 8.9 mg/dL (8.5-10.1); CREATININE 1.6 mg/dL (0.6-1.3); MAGNESIUM 2.1 mg/dL (1.8-2.4); PHOSPHORUS 4.2 mg/dL (2.5-4.9); POTASSIUM 4.1 mmol/L (3.5-5.1)
[2018-01-10 08:00] VITALS: BP 123/65
[2018-01-10] MEDS: GLUCERNA SHAKE 237 ML CAN PO SCH ×2 (08:15→16:00)
[2018-01-10] MEDS: CARVEDILOL 6.25 MG TABLET PO SCH ×2 (08:17→16:04)
[2018-01-10] MEDS: ASPIRIN 81 MG TAB.CHEW PO SCH (08:17)
[2018-01-10] MEDS: SPIRONOLACTONE 25 MG TABLET PO SCH (08:17)
[2018-01-10] MEDS: CLOPIDOGREL BISULFATE 75 MG TABLET PO SCH (08:17)
[2018-01-10] MEDS: MUPIROCIN OINT 2% 22 GM TUBE SCH ×2 (08:18→21:06)
[2018-01-10] MEDS: HYDROCODONE/APAP 5/325MG 1 EACH TABLET PO PRN (09:12)
[2018-01-10 14:37] LABS: APPEARANCE,URINE CLEAR (CLEAR); BILIRUBIN,URINE NEGATIVE (NEGATIVE); BLOOD, URINE NEGATIVE Ery/uL (NEGATIVE); COLOR,URINE YELLOW (YELLOW); KETONES,URINE NEGATIVE (NEGATIVE); LEUKOCYTE ESTERASE ,URINE NEGATIVE (NEGATIVE); NITRITE, URINE NEGATIVE (NEGATIVE); PH,URINE 5.5 (5.0-8.0); PROTEIN,URINE NEGATIVE (NEGATIVE); UGLUCOSE NEGATIVE (NEGATIVE)
[2018-01-10 14:49] LABS: URINE TOTAL PROTEIN 28.2 mg/dL (0-11.9)
[2018-01-10 15:05] LABS: BACTERIA,URINE 1+ /HPF (None Seen); RBC,URINE 0-2 /HPF (0-2); SQUAMOUS EPITHELIAL CELL,UR 0-2 /HPF (None Seen)
[2018-01-10 15:06] LABS: CALCIUM OXALATE CRYSTALS,UR Rare /HPF (None Seen); HYALINE CASTS, URINE Few /LPF (None Seen)
[2018-01-10 15:31] LABS: EOSINOPHIL,URINE None Seen
[2018-01-10 16:00] VITALS: BP 106/68
[2018-01-10 20:00] VITALS: BP 116/73
[2018-01-10] MEDS: ENOXAPARIN SODIUM 40 MG/0.4 ML DISP.SYRIN SQ SCH (21:08)
[2018-01-10] MEDS: ATORVASTATIN 40 MG TABLET PO SCH (21:27)
[2018-01-10] MEDS: ZOLPIDEM TARTRATE 5 MG TABLET PO PRN (22:10)
[2018-01-11 07:33] LABS: BASOPHILS % (AUTO) 0.5 % (0.0-2.0); EOSINOPHILS % (AUTO) 0.5 % (0.0-6.0); HEMATOCRIT 32 % (39-51); HEMOGLOBIN 10.5 g/dL (13.5-17.5); LYMPHOCYTES # (AUTO) 2.1 /CMM (0.8-4.8); LYMPHOCYTES % (AUTO) 20.6 % (20.0-44.0); MEAN CORPUSCULAR HGB CONC 33 g/dl (31.0-36.0); MEAN CORPUSCULAR VOLUME 84 fL (80-96); MONOCYTES # (AUTO) 0.7 /CMM (0.1-1.30); NEUTROPHILS # (AUTO) 7.3 /CMM (1.8-8.9); NEUTROPHILS % (AUTO) 71.4 % (43.0-81.0); PLATELET COUNT (AUTO) 257 /CMM (150-450); RDW COEFFICIENT OF VARIATION 17.5 (11.5-15.0); RED BLOOD CELL COUNT(AUTO) 3.79 MIL/uL (4.5-6.0); WHITE BLOOD COUNT (AUTO) 10.2 K/uL (4.3-11.0)
[2018-01-11 07:50] LABS: POTASSIUM 3.6 mmol/L (3.5-5.1)
[2018-01-11 08:00] VITALS: BP 95/66
[2018-01-11] MEDS: SPIRONOLACTONE 25 MG TABLET PO SCH (08:06)
[2018-01-11] MEDS: CARVEDILOL 6.25 MG TABLET PO SCH ×2 (08:06→16:23)
[2018-01-11] MEDS: ASPIRIN 81 MG TAB.CHEW PO SCH (08:23)
[2018-01-11] MEDS: CLOPIDOGREL BISULFATE 75 MG TABLET PO SCH (08:23)
[2018-01-11] MEDS: GLUCERNA SHAKE 237 ML CAN PO SCH ×2 (08:27→16:23)
[2018-01-11] MEDS: MUPIROCIN OINT 2% 22 GM TUBE SCH ×2 (08:28→21:00)
[2018-01-11] MEDS: FUROSEMIDE 40 MG/4 ML VIAL IV SCH (11:44)
[2018-01-11 13:27] LABS: ABG BASE EXCESS 1.5 mmol/L; ABG OXYGEN SATURATION 97.2 % (92.0-98.5); ABG PCO2 25.2 mmHg (35.0-45.0); ABG PH 7.568 (7.350-7.450); ABG PO2 100.3 mmHg (75.0-100.0); AaDO2 69.6 mmHg; COHb 0.1 % (0.5-1.5); MetHb 0.6 % (0.0-1.5); O2Hb 96.5 % (94.0-97.0); SITE, ABG Left Radial
[2018-01-11 16:00] VITALS: BP 100/55
[2018-01-11 20:00] VITALS: BP 98/68
[2018-01-11] MEDS: ATORVASTATIN 40 MG TABLET PO SCH (20:59)
[2018-01-11] MEDS: ENOXAPARIN SODIUM 40 MG/0.4 ML DISP.SYRIN SQ SCH (21:06)
[2018-01-12 06:55] LABS: BASOPHILS # (AUTO) 0.1 /CMM (0.0-0.2); BASOPHILS % (AUTO) 0.6 % (0.0-2.0); EOSINOPHILS % (AUTO) 0.9 % (0.0-6.0); HEMATOCRIT 34 % (39-51); HEMOGLOBIN 10.9 g/dL (13.5-17.5); LYMPHOCYTES # (AUTO) 2.3 /CMM (0.8-4.8); LYMPHOCYTES % (AUTO) 19.5 % (20.0-44.0); MEAN CORPUSCULAR HGB CONC 32 g/dl (31.0-36.0); MEAN CORPUSCULAR VOLUME 84 fL (80-96); MONOCYTES % (AUTO) 8.2 % (2.0-12.0); NEUTROPHILS # (AUTO) 8.3 /CMM (1.8-8.9); NEUTROPHILS % (AUTO) 70.8 % (43.0-81.0); PLATELET COUNT (AUTO) 301 /CMM (150-450); RDW COEFFICIENT OF VARIATION 17.7 (11.5-15.0); RED BLOOD CELL COUNT(AUTO) 4.01 MIL/uL (4.5-6.0); WHITE BLOOD COUNT (AUTO) 11.7 K/uL (4.3-11.0)
[2018-01-12 07:02] LABS: CALCIUM, SERUM 8.9 mg/dL (8.5-10.1); CREATININE 1.1 mg/dL (0.6-1.3); PHOSPHORUS 2.7 mg/dL (2.5-4.9)
[2018-01-12 08:00] VITALS: BP 104/70
[2018-01-12] MEDS: ASPIRIN 81 MG TAB.CHEW PO SCH (08:35)
[2018-01-12] MEDS: GLUCERNA SHAKE 237 ML CAN PO SCH ×2 (08:35→16:18)
[2018-01-12] MEDS: CLOPIDOGREL BISULFATE 75 MG TABLET PO SCH (08:35)
[2018-01-12] MEDS: FUROSEMIDE 40 MG/4 ML VIAL IV SCH (08:35)
[2018-01-12] MEDS: CARVEDILOL 6.25 MG TABLET PO SCH ×2 (08:36→16:15)
[2018-01-12] MEDS: MUPIROCIN OINT 2% 22 GM TUBE SCH ×2 (08:36→21:33)
[2018-01-12] MEDS: SPIRONOLACTONE 25 MG TABLET PO SCH (08:36)
[2018-01-12 16:00] VITALS: BP 115/69
[2018-01-12] MEDS: ALBUTEROL FS 2.5 MG/0.5 ML VIAL.NEB NEB PRN (16:15)
[2018-01-12 20:00] VITALS: BP 109/69
[2018-01-12] MEDS: ATORVASTATIN 40 MG TABLET PO SCH (21:33)
[2018-01-12] MEDS: ENOXAPARIN SODIUM 40 MG/0.4 ML DISP.SYRIN SQ SCH (21:35)
[2018-01-13 06:35] LABS: BASOPHILS % (AUTO) 0.4 % (0.0-2.0); EOSINOPHILS % (AUTO) 0.6 % (0.0-6.0); HEMATOCRIT 33 % (39-51); HEMOGLOBIN 10.8 g/dL (13.5-17.5); LYMPHOCYTES # (AUTO) 1.8 /CMM (0.8-4.8); LYMPHOCYTES % (AUTO) 16.7 % (20.0-44.0); MEAN CORPUSCULAR HGB CONC 33 g/dl (31.0-36.0); MEAN CORPUSCULAR VOLUME 83 fL (80-96); MONOCYTES % (AUTO) 9.5 % (2.0-12.0); NEUTROPHILS # (AUTO) 7.8 /CMM (1.8-8.9); NEUTROPHILS % (AUTO) 72.8 % (43.0-81.0); PLATELET COUNT (AUTO) 294 /CMM (150-450); RDW COEFFICIENT OF VARIATION 18.6 (11.5-15.0); RED BLOOD CELL COUNT(AUTO) 3.97 MIL/uL (4.5-6.0); WHITE BLOOD COUNT (AUTO) 10.7 K/uL (4.3-11.0)
[2018-01-13 06:53] LABS: CALCIUM, SERUM 8.9 mg/dL (8.5-10.1); MAGNESIUM 1.9 mg/dL (1.8-2.4); PHOSPHORUS 2.7 mg/dL (2.5-4.9); POTASSIUM 3.6 mmol/L (3.5-5.1)
[2018-01-13 08:00] VITALS: BP 98/69
[2018-01-13] MEDS: MUPIROCIN OINT 2% 22 GM TUBE SCH (08:23)
[2018-01-13] MEDS: CARVEDILOL 6.25 MG TABLET PO SCH ×2 (08:24→17:06)
[2018-01-13] MEDS: GLUCERNA SHAKE 237 ML CAN PO SCH ×2 (08:25→17:05)
[2018-01-13] MEDS: FUROSEMIDE 40 MG/4 ML VIAL IV SCH (08:25)
[2018-01-13] MEDS: ASPIRIN 81 MG TAB.CHEW PO SCH (08:25)
[2018-01-13] MEDS: CLOPIDOGREL BISULFATE 75 MG TABLET PO SCH (08:25)
[2018-01-13] MEDS: SPIRONOLACTONE 25 MG TABLET PO SCH (08:25)
[2018-01-13 08:51] VITALS: BP 98/69
[2018-01-13 16:00] VITALS: BP 111/73
[2018-01-13 16:31] VITALS: BP 111/73
[2018-01-13 20:00] VITALS: BP 114/75
[2018-01-13] MEDS: ATORVASTATIN 40 MG TABLET PO SCH (21:43)
[2018-01-13] MEDS: ENOXAPARIN SODIUM 40 MG/0.4 ML DISP.SYRIN SQ SCH (21:46)
[2018-01-14 08:00] VITALS: BP 101/69
[2018-01-14] MEDS: SPIRONOLACTONE 25 MG TABLET PO SCH (10:00)
[2018-01-14] MEDS: ASPIRIN 81 MG TAB.CHEW PO SCH (10:00)
[2018-01-14] MEDS: CARVEDILOL 6.25 MG TABLET PO SCH ×2 (10:00→17:00)
[2018-01-14] MEDS: CLOPIDOGREL BISULFATE 75 MG TABLET PO SCH (10:00)
[2018-01-14] MEDS: GLUCERNA SHAKE 237 ML CAN PO SCH ×2 (10:01→17:04)
[2018-01-14] MEDS: FUROSEMIDE 40 MG/4 ML VIAL IV SCH (10:01)
[2018-01-14 10:31] VITALS: BP 101/69
[2018-01-14 16:00] VITALS: BP 93/65
[2018-01-14 20:00] VITALS: BP 119/72
== END 2018-01-14 21:30 | disposition short-term general hospital (02) | DRG 194 ==
LOC: ER 13:16 → TELE 15:52 → MED 01-09 08:01
PROVIDERS: ADMIT Internal Medicine; ATTEND Internal Medicine
PROC: 02HV33Z Insertion of Infusion Device into Superior Vena Cava, Percutaneous Approach (ICD-10-PCS; principal; 2018-01-06)
DX: I11.0 Hypertensive heart disease with heart failure (principal); J96.01 Acute respiratory failure with hypoxia; I21.4 Non-ST elevation (NSTEMI) myocardial infarction; L89.159 Pressure ulcer of sacral region, unspecified stage; J18.9 Pneumonia, unspecified organism; R53.2 Functional quadriplegia; E87.2 Acidosis; E44.0 Moderate protein-calorie malnutrition; Z93.0 Tracheostomy status; R13.10 Dysphagia, unspecified; E11.9 Type 2 diabetes mellitus without complications; B95.62 Methicillin resistant Staphylococcus aureus infection as the cause of diseases classified elsewhere; N39.0 Urinary tract infection, site not specified; G35 Multiple sclerosis; I50.23 Acute on chronic systolic (congestive) heart failure; I25.5 Ischemic cardiomyopathy; E78.5 Hyperlipidemia, unspecified; Z98.61 Coronary angioplasty status; Z95.810 Presence of automatic (implantable) cardiac defibrillator; Z98.890 Other specified postprocedural states; Z79.82 Long term (current) use of aspirin; Z79.899 Other long term (current) drug therapy; Z74.01 Bed confinement status; Z87.440 Personal history of urinary (tract) infections; Z86.14 Personal history of Methicillin resistant Staphylococcus aureus infection; Z82.49 Family history of ischemic heart disease and other diseases of the circulatory system; Z66 Do not resuscitate; Z93.1 Gastrostomy status; K21.9 Gastro-esophageal reflux disease without esophagitis; I25.10 Atherosclerotic heart disease of native coronary artery without angina pectoris; D63.8 Anemia in other chronic diseases classified elsewhere; E03.9 Hypothyroidism, unspecified; Z72.0 Tobacco use; Z16.24 Resistance to multiple antibiotics; G40.909 Epilepsy, unspecified, not intractable, without status epilepticus; N31.9 Neuromuscular dysfunction of bladder, unspecified
CPT/HCPCS: 36415; 36600; 71045-TC; 80048-TC; 80076-TC; 81000-TC; 82570-TC; 82803-TC; 83605-TC; 83735-TC; 83880; 84100-TC; 84155-TC; 84300-TC; 84484-TC; 85025-TC; 85730-TC; 86850-TC; 87040-TC; 87081-TC; 87086-TC; 93307-TC; 94799-TC; A4606; J1650; J1940; J2405; J3475; J3480; J7050; Q9967; Z7610